=== PATIENT | male | born 1940 | race Caucasian/White ===

== ENCOUNTER 2016-11-09 12:51 | Inpatient (IN) | payer MEDICARE, OTHER ==
[2016-11-09] VITALS (8 sets, daily range): BP systolic 100–152; BP diastolic 43–88; PULSE 60–76; RESP 16–28; O2SAT 94–97
[~2016-11-09] VITALS: Ht 180.3 cm; Wt 132.5 kg
--- NOTE | 2016-11-09 12:51 | ED.REPORT ---
HPI-Stroke / CVA Nov 09, 2016 ED Provider: Suleman Pedroza MD Patient is a 76 year old male with a history of CAD and DM who presents to the ED via EMS complaining of L sided paralysis upon waking this morning. His last known normal is last night before bed. He fell this morning when he got up to go to the bathroom and hit his head on his night stand. He was found down on his left side by EMS for an unknown amount of time. EMS noted him to have decreased functioning of his L side and reports he was fluctuating in and out of Afib. He denies any other symptoms. He does not have a hx of stroke. Pt takes ASA daily but is not on any other blood thinners. Nursing Notes Stated Complaint: POSSIBLE STROKE Nursing Notes Reviewed: Yes Allergies: Coded Allergies: No Known Allergies (Unverified , 11/09/16) Scheduled Ascorbic Acid (Vitamin C) 250 Mg Tab.chew 250 MG PO QAM (Reported) Aspirin (Aspirin) 81 Mg Tablet 81 MG PO QAM (Reported) Calcium Carbonate (Calcium Carbonate) 600 Mg Tablet 600 MG PO QAM (Reported) Cholecalciferol (Vitamin D3) (Vitamin D3) 2,000 Unit Tablet 2,000 UNIT PO QAM ( Reported) Hydrochlorothiazide (Hydrochlorothiazide) 25 Mg Tablet 25 MG PO QAM (Reported) Insulin Glargine (Lantus U100 Insulin Vial) 100 Unit/Ml Vial 45 UNIT SUBQ HS ( Reported) Lisinopril (Lisinopril) 40 Mg Tablet 40 MG PO QAM (Reported) Metformin (Glucophage) 1,000 Mg Tablet 1,000 MG PO BIDWM (Reported) Metoprolol Tartrate (Metoprolol Tartrate) 100 Mg Tablet 100 MG PO BID (Reported ) Rosuvastatin Calcium (Rosuvastatin Calcium) 20 Mg Tablet 20 MG PO HS (Reported) Tadalafil (Cialis) 5 Mg Tablet 5 MG PO QAM (Reported) As directed by physician. Tamsulosin (Flomax) 0.4 Mg Capsule 0.4 MG PO HS (Reported) Triamcinolone Acetonide (Nasacort) 10.8 Ml Arnold 2 SPRAYS NS QAM (Reported) Vit A,C & E/Lutein/Minerals (Ocuvite with Lutein Tablet) 1 Each Tablet 1 EACH PO QAM (Reported) Scheduled PRN Hydrocodone-Acetaminophen 5-325 mg (Hydrocodone-Acetaminophen 5-325 mg) 1 Each Tablet 1 TABLET PO Q6H PRN PRN For Pain (Reported) Trazodone (Trazodone) 100 Mg Tablet 100 MG PO HS PRN PRN Insomnia (Reported) General Time Seen by Provider: 13:01 Chief Complaint Weakness Left-sided Hx Obtained From: Patient Arrived By: Ambulance Time last known well 11/08/16 Sudden in Onset?: Yes Context of Onset: During sleep Symptom Duration: Since onset Progression Since Onset: Unchanged Severity: Current: No pain currently Severity: Maximum: No pain Pertinent Negative: Pt denies other symptoms Context: Immunizations Unknown Risk Factors )( TPA Administration/Criteria Stroke Thrombolytic Therapy : TPA Considered: Yes Neurologist Contacted: Yes TPA Administered Intravenously: No, exclusion criteria (Outside time window ) )( CVA Risk Stratification Age >60 Risk factors reviewed Past Medical History Past Medical History CAD DM Past Surgical History Bypass 2004 Reports: Cataract surgery Social History Other Social History: Unable to Obtain History Past medical history, Past surgical history, Family history, Smoking history, Social history, Occupation, Ambulatory status Review of Systems Constitutional: Denies: Fever Respiratory: Denies: Shortness of breath Cardiovascular: Denies: Chest pain Neurologic: Reports: Focal weakness ( L sided ), Denies: Headache, Lightheaded, Slurred speech Complete sys rev & neg: except as marked. Physical Exam Initial Vital Signs Vital Signs (First) Date Time Temp Pulse Resp B/P Pulse Ox O2 Delivery O2 Flow Rate FiO2 11/09/16 13:22 36.2 76 16 133/69 97 Nasal Cannula 4 Initial VS: Reviewed, Vital signs normal General/Constitutional: Awake, Alert Answering questions appropriately Head / Eyes: Atraumatic No sings trauma to scalp or face L sided facial droop presents Neck: Atraumatic, Full range of motion, No midline vertebral tend No midline cervical tenderness Respiratory / Chest: Breath sounds NL, Breath sounds = bilat, No respiratory distress Ecchymosis to the L anterior chest wall. Anterior chest wall has well healed sternotomy scar. Cardiovascular: Heart rate NL, Regular rhythm, Heart sounds NL Neurologic: Oriented X3, Speech NL No strength to the L arm, unable to lift from side Freely and spontaneously moves R arm Lifts R leg off bed Unable to life L leg against gravity Sensation intact to bilateral upper and lower extremities Abdomen: Atraumatic, Soft, Non-tender Lower Extremity / Pelvis / MS: No deformity Superficial abrasion to the L knee Back: Atraumatic, No midline vertebral tend No thoracic or lumbar tenderness no bony deformity or step off Interpretation & Diagnostics Lab Results Interpretation Result Diagram: 11/09/16 1346 11/09/16 1346 Test 11/09/16 13:46 White Blood Count 13.7th/mm3 (3.8-10.1) Red Blood Count 5.25mil/mm3 (4.40-5.80) Hemoglobin 15.6g/dL (13.8-17.2) Hematocrit 45.6% (41.0-50.0) Mean Corpuscular Volume 86.9fL (81-100) Mean Corpuscular Hemoglobin 29.7pg (27.0-35.0) Mean Corpuscular Hemoglobin Concent 34.2% (32.0-37.0) Red Cell Distribution Width 13.2% (12.3-15.4) Platelet Count 187bil/L (150-400) Neutrophils (%) (Auto) 85.9% (40-74) Lymphocytes (%) (Auto) 5.5% (14-46) Monocytes (%) (Auto) 8.3% (4-12) Eosinophils (%) (Auto) 0.1% (0-5) Basophils (%) (Auto) 0.1% (0-3) Prothrombin Time 11.1sec (8.1-12.5) Prothromb Time International Ratio 1.04ratio Activated Partial Thromboplast Time 24.7sec (22.8-33.0) Sodium Level 140mEq/L (134-144) Potassium Level 4.1mEq/L (3.5-5.2) Chloride Level 97mEq/L (97-108) Carbon Dioxide Level 27mmol/L (18-29) Blood Urea Nitrogen 27mg/dL (8-27) Creatinine 1.03mg/dL (0.76-1.27) Estimat Glomerular Filtration Rate 75mL/min (>59) Glucose Level 136mg/dL (60-99) Calcium Level 9.4mg/dL (8.5-10.1) Total Bilirubin 0.5mg/dL (0.0-1.2) Aspartate Amino Transf (AST/SGOT) 27U/L (0-50) Alanine Aminotransferase (ALT/SGPT) 18U/L (0-44) Alkaline Phosphatase 39U/L (25-160) Total Creatine Kinase 648U/L (21-232) Troponin T < 0.010ug/L (0.0-0.011) Total Protein 6.8g/dL (6.4-8.4) Albumin 4.4g/dL (3.4-5.0) Triglycerides Level 76mg/dL (0-149) Cholesterol Level 126mg/dL (100-199) LDL Cholesterol, Calculated 62.800mg/dL (0-99) VLDL Cholesterol 15.200mg/dL HDL Cholesterol 48mg/dL (>39) Cholesterol/HDL Ratio 2.63 (0.0-4.4) Hold Manjarrez Top Tube Received (Received) ECG Interpretation ECG Interpretation: sinus rate 70 non specific intraventricular conduction delay poor baseline quality multiple PVC's no obvious ST elevation no prior for comparison Time: 12:55 Interpreted by: ED physician X-Ray Chest Interpretation Chest Xray Interpretation: IMPRESSION: 1. Focal opacity in the periphery of the left midlung suspicious for pulmonary contusion. 2. Left seventh and eighth rib fractures. Dictated by: Cindi Red MD, PhD on 11/09/2016 at 13:28 Approved by: Cindi Red MD, PhD on 11/09/2016 at 13:30 View: Portable, 1 view Interpretation / Wet Read by: Interpret - Radiologist CT Head Interpretation CT ANGIO HEAD AND NECK: IMPRESSION: 1. Subtle loss of morrow-white matter change involving the right basal ganglia suspicious for acute infarct. 2. No intracranial hemorrhage. 3. Thrombus involving the distal M1 and proximal M2 segments of the right posterior blurry. 4. 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 5. High-grade, proximally 70-80% stenosis of the origin the left internal carotid artery. 6. Moderate stenosis of the origins of the vertebral arteries. 7. Image quality severely degraded by patient motion artifact. 8. Findings telephoned to Dr. Suleman Pedroza on 11/09/2016 at 1557 hrs. Dictated by: Cindi Red MD, PhD on 11/09/2016 at 15:50 Approved by: Cindi Red MD, PhD on 11/09/2016 at 15:59 Interpretation / Wet Read by: Interpret - Radiologist Re-Eval/Medical Decision Med Decision/Clinical Course Patient is a 76 year old male with a history of CAD and DM who presents to the ED via EMS complaining of L sided paralysis upon waking this morning. His last known normal is last night before bed. He fell this morning when he got up to go to the bathroom and hit his head on his night stand. He was found down on his left side by EMS for an unknown amount of time. EMS noted him to have decreased functioning of his L side and reports he was fluctuating in and out of Afib. He denies any other symptoms. Upon arrival in the emergency department the patient is alert/awake and hemodynamically stable. The patient has complete paralysis of the left upper and lower limbs. His presentation is overwhelmingly consistent with severe stroke. He was last known normal when he went to bed last night and is not a candidate for TPA because of this. EKG: sinus rate 70 non specific intraventricular conduction delay poor baseline quality multiple PVC's no obvious ST elevation no prior for comparison Laboratory studies notable as below: Leukocytosis 13.9 CBC otherwise unremarkable cmp unremark trop neg CK 648 coag studies nL Chest x-ray: 1. Focal opacity in the periphery of the left midlung suspicious for pulmonary contusion. 2. Left seventh and eighth rib fractures. CT/CTA head and neck obtained as below: 1. Subtle loss of morrow-white matter change involving the right basal ganglia suspicious for acute infarct. 2. No intracranial hemorrhage. 3. Thrombus involving the distal M1 and proximal M2 segments of the right posterior blurry. 4. 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 5. High-grade, proximally 70-80% stenosis of the origin the left internal carotid artery. 6. Moderate stenosis of the origins of the vertebral arteries. 7. Image quality severely degraded by patient motion artifact. Patient presentation and about imaging findings discussed with stroke neurology team at [facility]. I specifically contacted them to discuss whether this patient was a candidate for clot retrieval. Given that his last known normal was last night they do not feel that transfer for potential clot retrieval would be of benefit. He is clearly not TPA candidate. At this time the patient remains with ongoing severe neurologic deficits though he has demonstrated no evolving neurologic process. He is additionally noted to have above-mentioned rib fractures and pulmonary contusion there was not any respiratory distress. He was treated with hydromorphone for pain. Swallow screen was performed and the patient failed swallow screen. Patient was discussed with admitting hospitalist accepted for further management. Re-Evaluation/Progress : Time of Eval: 13:30 )( Re-Eval Neurologic Exam: Alert Re-Evaluation/Progress Note: Discussed plan for admission. Patient understands and agrees with plan. All questions addressed at this time. Consultation #1: Call Returned at: 15:33 Note: Discussed pt's case with the stroke team at [facility]. Suggest admitting pt at [facility], as they would not likely do a clot retrieval. Consultation #2: Referral / Consult Name: Sergei Davidson MD Consulted With: Hospitalist Call Returned at: 16:45 Actuarial Intern: Will see patient, Agrees with eval, Agrees with plan, Accepts admit Note: Discussed pt's case. Accepts admit. Counseled Regarding: Diagnosis, Lab results, Need for admission Patient Discharge & Departure Impression: Primary Impression: Cerebrovascular accident CVA mechanism: unspecified Qualified Code: I63.9 - Cerebral infarction, unspecified Additional Impressions: Paralysis of left upper extremity Paralysis of left lower extremity Acute ischemic right MCA stroke Left rib fracture Encounter type: initial encounter Rib fracture type: multiple ribs Fracture type: closed Qualified Code: S22.42XA - Multiple fractures of ribs, left side, initial encounter for closed fracture Left pulmonary contusion Fall from ground level Elevated CK Disposition: ADMITTED TO HOSPITAL Discharge Condition All VS Reviewed: Yes Condition: Stable Referrals: Jesica Kirk PA-C (PCP) Crit Care Except Billable Proc Time Spent: 135-164 minutes Services Performed: Patient management by me, Time spent at bedside, Reviewing test results, Reviewing imaging, Discussing patient care, Documentation in record, Time with fam/surrogate Critical Care Notes: Management of acute ischemic stroke with left-sided paralysis, discussions with stroke team at [facility], consideration of TPA, consideration of clot retrieval, management of acute traumatic injuries, discussions with patient/family, documentation Scribe Attestation Portions of this note were transcribed by Ping Clemente. I, Dr. Pedroza personally performed the history, physical exam and medical decision-making; I reviewed and confirmed the accuracy of the information in the transcribed note. Signed by: Lincoln Dailey, 11/09/16 copies to: Jesica Kirk PA-C, Beck O MD Nov 09, 2016 12:51 PING CLEMENTE Nov 09, 2016 13:01
--- NOTE | 2016-11-09 13:32 | DRSVH ---
PROCEDURE: X-RAY CHEST ONE VIEW, PORTABLE ([id number]) INDICATIONS: stroke protocol, Left chest trauma TECHNIQUE: One view of the chest was acquired. COMPARISON: None. FINDINGS: Surgical changes and devices: Median sternotomy wires. Lungs and pleura: No pleural effusions or pneumothorax. Focal opacity noted in the periphery of the left midlung suspicious pulmonary contusion given history of trauma. Mediastinum: Mediastinal contours appear normal. Heart size is normal. Bones and chest wall: No suspicious bony lesions. Overlying soft tissues appear unremarkable. Left seventh and eighth rib fractures noted. IMPRESSION: 1. Focal opacity in the periphery of the left midlung suspicious for pulmonary contusion. 2. Left seventh and eighth rib fractures. Dictated by: Cindi Red MD, PhD on 11/09/2016 at 13:28 Approved by: Cindi Red MD, PhD on 11/09/2016 at 13:30
[2016-11-09 13:50] LABS: BASOPHILS % (AUTO) 0.1 % (0-3); EOSINOPHILS % (AUTO) 0.1 % (0-5); MONOCYTES % (AUTO) 8.3 % (4-12); Mean Corpuscular Hemoglobin 29.7 pg (27.0-35.0); Mean Corpuscular Volume 86.9 fL (81-100); NEUTROPHILS % (AUTO) 85.9 % (40-74); Platelet Count 187 bil/L (150-400)
[2016-11-09 14:29] LABS: TROPONIN T < 0.010 ug/L (0.0-0.011)
[2016-11-09 14:32] LABS: Creatine Kinase 648 U/L (21-232)
[2016-11-09 14:40] LABS: INR 1.04 ratio
--- NOTE | 2016-11-09 16:01 | DRSVH ---
PROCEDURE: CT ANGIO HEAD AND NECK (P) INDICATIONS: STAT READ - CALL ED PROVIDER W/RESULTS TECHNIQUE: Pre-contrast 4.5 mm thick sections acquired from the foramen magnum to the vertex. After the adminis tration of intravenous contrast, 1 mm thick sections acquired from the aortic arch through the [place] of [place]. Post-contrast 4.5 mm thick sections then re-acquired from the foramen magnum to the vert ex. 3-dimensional zkwsvqt-wshyorhkv-cnpzhomaen (MIP) and/or volume rendering reformats were acquired of the central intracranial vasculature and neck separately. For radiation dose reduction, the foll owing was used: automated exposure control, adjustment of mA and/or kV according to patient size. COMPARISON: None. FINDINGS: Image quality: Image quality severely degraded by patient motion. BRAIN: CSF spaces: Ventricles are normal in size and shape. Basal cisterns are patent. No extra-axial flu id collections. Brain: No midline shift. No intracranial bleeds or masses. Subtle hypodensity noted in the right de ep morrow matter suspicious for acute infarct. Skull and face: Calvarium and facial bones appear intact, without suspicious lesions. Orbits appear normal. Sinuses: Mucous retention cyst versus polyp is noted in the left maxillary sinus. The mastoids are clear. HEAD CT ANGIOGRAPHY: Anterior circulation: Intracranial internal carotid arteries are normal in size and flow. The flow within the paired anterior cerebral arteries is normal and symmetric. There is absence of flow in the distal M1 segment and the proximal M2 segments of the right middle cerebral artery compatible presen ce of thrombus. The anterior communicating artery is seen. No aneurysms are seen. Posterior circulation: Visualized portions of the vertebral arteries demonstrate normal caliber, and join to form a normal appearing basilar artery. Flow within the posterior cerebral arteries is norm al and symmetric. No aneurysms are seen. NECK CT ANGIOGRAPHY: Carotid system: The great vessels demonstrate a conventional anatomy as they arise from the aortic a rch. The origins of the common carotid arteries appear patent. The common carotid arteries demonstr ate normal caliber and courses. Atherosclerotic plaque noted in the origin of the right internal car otid artery which causes high grade,, greater than 90% to near-complete occlusion of the vessel. Ath erosclerotic plaque is noted in the origin of the left internal carotid artery which causes high grad e, approximately 7880% stenosis of the vessel. Posterior circulation: Atherosclerotic plaque noted in the origins of the vertebral arteries bilater ally which causes moderate stenosis. The more superior extracranial portions of both vertebral arter ies also demonstrate normal courses and calibers. They join to form a normal appearing basilar arter y. Soft tissues: Visualized neck soft tissues demonstrate no suspicious abnormalities. Bones: No suspicious bony lesions. Visualized cervical spine appears normally aligned. IMPRESSION: 1. Subtle loss of morrow-white matter change involving the right basal ganglia suspicious for acute in farct. 2. No intracranial hemorrhage. 3. Thrombus involving the distal M1 and proximal M2 segments of the right posterior blurry. 4. 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 5. High-grade, proximally 70-80% stenosis of the origin the left internal carotid artery. 6. Moderate stenosis of the origins of the vertebral arteries. 7. Image quality severely degraded by patient motion artifact. 8. Findings telephoned to Dr. Suleman Pedroza on 11/09/2016 at 1557 hrs. Dictated by: Cindi Red MD, PhD on 11/09/2016 at 15:50 Approved by: Cindi Red MD, PhD on 11/09/2016 at 15:59
[2016-11-09] MEDS ORDERED: HYDROmorphone 0.5 mg/0.5 mL iSecure Syringe IVPUSH ONE (16:10)
--- NOTE | 2016-11-09 17:27 | PCM.HPMED ---
Subjective Date of Service Nov 09, 2016 Primary Provider: Admitting Physician: Sergei Davidson MD Primary Care Physician: Jesica Kirk PA-C Attending Physician: Sergei Davidson MD Admit Status: From the Emergency Department, Admit to Green Team Chief Complaint: Left sided weakness History of Present Illness: Patient is a 76 year old male with a history of CAD and DM who presents to the ED via EMS complaining of L sided paralysis upon waking this morning. Patient said that he felt fine when he went to bed. Woke up this morning and fell out of bed. Says that his left side was paralyzed upon waking. Patient has no prior history of stroke was taking aspirin but no other active regulation. Patient denies known history of atrial fibrillation. Per emergency department note he was found down on his left side by EMS for an unknown amount of time. EMS noted him to have decreased functioning of his L side and reports he was fluctuating in and out of Afib. He denies any other symptoms. Review of Systems: 12 point review of symptoms negative except for history of present illness Allergies Coded Allergies: No Known Allergies (Unverified , 11/09/16) Home Medications See med list PMH CAD DM Surgical History Bypass 2004 Reports: Cataract surgery Family History Noncontributory Exam Vital Signs Vital Sign - Last Date Time Temp Pulse Resp B/P Pulse Ox O2 Delivery O2 Flow Rate FiO2 11/09/16 16:43 64 23 123/54 97 Room Air 4 11/09/16 13:22 36.2 Exam Gen: NAD, AOx, L sided facial droop HEENT: NCAT, PERRLA, EOMI, MMM, sclera anicteric. Neck: Soft, supple, no thyromegaly/JVD/LAD. Resp: CTAB, no R/R/W. l CV: S1 S2, RRR, No M/R/G Abd: Soft, (+) BS, NT/ND, no guarding/rebound/organomegaly. Ext: +PP, No edema. Skin: Superficial abrasion to the L knee. Ecchymosis to the L anterior chest wal Neuro/Psych: Cooperative, appr mood/affect. L sided facial droop. LUE- 1/5 strength. LLE- 1/5. Sensation intact to bilateral upper and lower extremities Lab and Diagnostics Result Diagram: 11/09/16 1346 11/09/16 1346 X-Rays, CTs and MRIs Chest Xray Interpretation: IMPRESSION: 1. Focal opacity in the periphery of the left midlung suspicious for pulmonary contusion. 2. Left seventh and eighth rib fractures. Dictated by: Cindi Red MD, PhD on 11/09/2016 at 13:28 Approved by: Cindi Red MD, PhD on 11/09/2016 at 13:30 View: Portable, 1 view Interpretation / Wet Read by: Interpret - Radiologist CT ANGIO HEAD AND NECK: IMPRESSION: 1. Subtle loss of morrow-white matter change involving the right basal ganglia suspicious for acute infarct. 2. No intracranial hemorrhage. 3. Absence of flow in the distal M1 segment and the proximal M2 segments of the right middle cerebral artery compatible presence of thrombus. 4. 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 5. High-grade, proximally 70-80% stenosis of the origin the left internal carotid artery. 6. Moderate stenosis of the origins of the vertebral arteries. 7. Image quality severely degraded by patient motion artifact. 8. Findings telephoned to Dr. Suleman Pedroza on 11/09/2016 at 1557 hrs. 12-lead ECG ECG Interpretation: sinus rate 70 non specific intraventricular conduction delay poor baseline quality multiple PVC's no obvious ST elevation no prior for comparison Time: 12:55 Interpreted by: ED physician Assessment & Plan Patient is a 76 year old male with a history of CAD and DM who presents to the ED via EMS complaining of L sided paralysis upon waking this morning with CTA- finding of Acute infarct Right Basal Ganglia right middle cerebral artery compatible presence of thrombus. Acute infarct Right Basal Ganglia, acute, active- p/w Left sided weakness. Per CTA- Acute infarct Right Basal Ganglia right middle cerebral artery compatible presence of thrombus. Outside of tPA window. ED cld [place] Neuro so said not candidate for clot retrieval. MRI Brain ordered. Allow permissive HTN Check Echo, check Hba1c, Lipid Panel. Cardiac Monitoring for possible A-Fib. Discussed case with Neuro- Dr. Chand. Med management w/ dual anti-platelet therapy- ASA/Plavix for 90 days. High dose Atorvastatin. She will see patient Ground Level Fall, acute, active. sustained Left seventh and eighth rib fractures per CXR. Left Pulmonary Contusion. Pain can give morphine. CAD-chronic c/w ASA. Hm Metoprolol tart 100mg BID. For cardioprotective effect will continue at lower dose of 25mg BID. If HR is elevated >120 can give Metoprolol 5mg prn. Want to allow for permissive HTN. DM-chronic -SSI, fingersticks. - Failed swallow, hm Lantus 40u, will give 1/2 dose until resumes diet. -Hold Metformin. - Check Hba1c Acetaminophen for mild pain when necessary. Bowel regimen Senna and MiraLAX scheduled and PRN. Zofran when necessary for nausea and vomiting. Code-Full Status- Patient is admitted under inpatient status expected length of stay greater than 2 midnights due to severity of presenting symptoms, risk of adverse events, and complexity of treatment plan. Pain Evaluation: Pain not Controlled VTE Prophylaxis: Sub-Q Heparin (Unfractionated) VTE Mechanical Devices: Intermittant Pneumatic CD Resuscitation Status: CPR: Attempt Resuscitation Sergei Davidson MD Nov 09, 2016 17:27
[2016-11-09] MEDS ORDERED: Ondansetron 2 mg/mL 2 mL Inj IVPUSH PRN ×2 (17:35→17:40)
[2016-11-09] MEDS ORDERED: Alum-Mag Hydrox-Simeth 30 mL Suspension PO PRN ×2 (17:35→17:40)
[2016-11-09] MEDS ORDERED: Polyethylene Glycol (PEG) 17 Gm Powder PO PRN (17:40)
[2016-11-09] MEDS ORDERED: Labetalol 5 mg/mL 20 mL Inj IVPUSH PRN (17:40)
[2016-11-09] MEDS ORDERED: HYDR-4003 PO (18:08)
[2016-11-09] MEDS ORDERED: ASPI-973 PO (18:08)
[2016-11-09] MEDS ORDERED: HYDR25TA4 PO (18:08)
[2016-11-09] MEDS ORDERED: TRIA10.8 NS (18:08)
[2016-11-09] MEDS ORDERED: METO100T3 PO (18:08)
[2016-11-09] MEDS ORDERED: CALC600T87 PO (18:08)
[2016-11-09] MEDS ORDERED: ROSU20TA27 PO (18:08)
[2016-11-09] MEDS ORDERED: TRAZ-118 PO (18:08)
[2016-11-09] MEDS ORDERED: VIT1TABL25 PO (18:08)
[2016-11-09] MEDS ORDERED: INSU100V7 SUBQ (18:08)
[2016-11-09] MEDS ORDERED: LISI40TA PO (18:08)
[2016-11-09] MEDS ORDERED: ASCO250T7 PO (18:08)
[2016-11-09] MEDS ORDERED: TAMS0.4C98 PO (18:08)
[2016-11-09] MEDS ORDERED: METF1000 PO (18:08)
[2016-11-09] MEDS ORDERED: CHOL200025 PO (18:08)
[2016-11-09] MEDS ORDERED: TADA5TAB2 PO (18:08)
[2016-11-09] MEDS ORDERED: Glucose 40% Oral Gel 15 Gm Tube PO PRN (18:15)
[2016-11-09] MEDS: Insulin LISPRO 300 Unit/3 mL Inj SUBQ SCH ×2 (18:24→22:00)
[2016-11-09] MEDS ORDERED: Dextrose 10% 250 ML IV PRN (18:25)
[2016-11-09] MEDS: 0.9% Sodium Chloride 1,000 ML IV SCH (18:35)
[2016-11-09] MEDS ORDERED: MeTOProlol 1 mg/mL 5 mL Inj IVPUSH PRN (18:35)
--- NOTE | 2016-11-09 19:25 | NUR ---
Arrival Arrival to room 3020 from ER via gurney approx 1800. O2 in place and NS infusing. Provider notified and assessed. Pharmacy updated medrec off pt list. Anti-thrombolytics admin. Brief applied. Pt oriented to room and call light. Left side flacid. 's in-home therapy teacher Shanna designated as primary contact and given an update, other family members numbers added to whiteboard along with plan of care.
--- NOTE | 2016-11-09 19:45 | NUR ---
Admission Admission assessment and screening completed.
[2016-11-09] MEDS: Insulin GLARgine 100 Unit/mL Syringe SUBQ SCH (21:00)
[2016-11-10] VITALS (8 sets, daily range): BP systolic 126–142; BP diastolic 57–79; PULSE 64–82; RESP 17–22; O2SAT 90–97
[2016-11-10] MEDS: Heparin 5,000 Unit/mL Inj SUBQ SCH ×3 (00:15→17:38)
[2016-11-10] MEDS: HYDROmorphone 1 mg/mL Inj IVPUSH PRN ×4 (00:15→19:48)
[2016-11-10] MEDS: 0.9% Sodium Chloride 1,000 ML IV SCH ×2 (04:35→16:09)
--- NOTE | 2016-11-10 05:06 | NUR ---
Neuro assessment Patient's neuro assessment has remained unchanged this shift. Left arm and leg flaccid. Left facial droop, garbled speech. Patient is alert and oriented, just difficult to understand. Patient on P500 bed, being turned Q2 hours. Cooperative with care, attempts to assist with turning. Bed alarm on for safety, intentional rounding in place.
[2016-11-10 06:34] LABS: BASOPHILS % (AUTO) 0.3 % (0-3); EOSINOPHILS % (AUTO) 1.7 % (0-5); MONOCYTES % (AUTO) 12.5 % (4-12); Mean Corpuscular Hemoglobin 29.9 pg (27.0-35.0); Mean Corpuscular Volume 87.2 fL (81-100); NEUTROPHILS % (AUTO) 67.3 % (40-74); Platelet Count 181 bil/L (150-400)
[2016-11-10] MEDS: Insulin LISPRO 300 Unit/3 mL Inj SUBQ SCH ×4 (08:00→20:43)
[2016-11-10] MEDS ORDERED: Dexamethasone Inj 10 MG in 0.9% Sodium Chloride-Pha MIX 50 ML IV STA (10:58)
--- NOTE | 2016-11-10 10:58 | DRSVH ---
PROCEDURE: MRI BRAIN WITH AND WITHOUT CONTRAST ([id number]) INDICATIONS: R Basal Ganglia CVA on CT. Left sides paralysis. The distal right M1/proximal right M2 segment middle cerebral artery thrombus identified by CT angiogram yesterday. TECHNIQUE: Noncontrast axial T1 spin echo, axial T2 fast spin echo, sagittal and axial FLAIR, coronal T2 fast sp in echo, axial gradient echo, axial diffusion and ADC through the brain. After the administration of contrast, axial and coronal 3D VIBE or T1 spin echo with fat saturation through the brain. COMPARISON: None. FINDINGS: Image quality: Excellent. CSF Spaces: Basal cisterns are patent. No extra-axial fluid collections. Ventricles are mildly dis torted in size and shape with a mild degree of compressive influence by the acute stroke involving th e right middle cerebral artery vascular distribution effacing the right lateral ventricle and overlyi ng cortical sulci to a mild degree. Brain: Scant [id number] midline shift. No intracranial bleeds or masses. No abnormal intracrani al enhancement. The brainstem appears normal. Diffusion-weighted images demonstrate definite acute ischemic insults involving the right middle cerebral artery vascular distribution and extending into the basal ganglia on the right, with largest measurements of the area of subacute stroke currently me asuring up to 7.2 cm AP and 3.8 cm transverse with a craniocaudad extent of approximately 3.9 cm. Terry btle flow abnormalities are present on T2 and postcontrast T1 imaging in the area of thrombus present at the junction of the M1 and M2 segments right middle cerebral artery. Several additional punctate foci of infarction are present involving the anterior tip of the right temporal lobe and also the te mporal occipital junction on the right. No chronic ischemic insults. Normal intravascular flow void s are present. Skull and face: Calvarial marrow is normal in signal. Orbits appear normal. Sinuses: Sinuses and mastoids appear clear. IMPRESSION: Moderately large right middle cerebral artery vascular distribution with early mild to m oderate mass effect, causing only slight afdro-vx-fuxy deviation of the midline structures, without a ssociated hemorrhage. As discussed above and previously during CT angiographic report there is a thr ombus that currently is likely partially obstructing the junction of the right middle cerebral artery M1-M2 junction. A portion of this thrombus is involving the lenticulostriate origins on the right is the presumed exp lanation for the basal ganglia contiguous infarction in that area and embolic etiology is the likely cause given the presence of several additional punctate foci of subacute ischemic injury involving th e anterior and posterior margins of the right temporal lobe. Findings immediately called to the hospitalist caring for the patient. Dictated by: Logan Navarro M.D. on 11/10/2016 at 10:34 Approved by: Logan Navarro M.D. on 11/10/2016 at 10:56
--- NOTE | 2016-11-10 11:41 | PCM.PNMED ---
Subjective Date of Service Nov 10, 2016 Subjective Pt had some difficulty with PO meds. No new R sided deficits noted overnight. Exam Vital Signs Vital Sign - Last Date Time Temp Pulse Resp B/P Pulse Ox O2 Delivery O2 Flow Rate FiO2 11/10/16 10:34 70 11/10/16 05:24 37.0 20 126/74 96 OxyMask 2.00 Intake and Output 11/09/16 11/09/16 11/10/16 Cumulative From/Thru 15:00 23:00 07:00 11/09/16 12:55 - 11/10/16 06:29 Intake Total 500 ml 996 ml 1496 ml Output Total 841 ml 841 ml Balance 500 ml 155 ml 655 ml Intake Oral 0 ml 0 ml IV Total 500 ml 996 ml 1496 ml Output Urine Total 841 ml 841 ml # Voids 1 1 # Bowel Movements 0 0 Exam Gen: NAD, AOx, L sided facial droop. Slurred speech. HEENT: NCAT, PERRLA, EOMI, MMM, sclera anicteric. Neck: Soft, supple, no thyromegaly/JVD/LAD. Resp: CTAB, no R/R/W. CV: S1 S2, RRR, No M/R/G Abd: Soft, (+) BS, NT/ND, no guarding/rebound/organomegaly. Ext: +PP, No edema. Skin: Superficial abrasion to the L knee. Neuro/Psych: Cooperative, appr mood/affect. L sided facial droop. LUE- 0/5 strength. LLE- 0/5. Sensation intact to bilateral upper and lower extremities. No R sided deficits. IVs and Medications Medications Reviewed: Medications were reviewed in detail Lab and Diagnostics Result Diagram: 11/10/16 0615 11/10/16 0750 X-Rays, CTs and MRIs 11/09/16 MRI BRAIN WITH AND WITHOUT CONTRAST Brain: Scant iyubw-re-lokl midline shift. No intracranial bleeds or masses. No abnormal intracranial enhancement. The brainstem appears normal. Diffusion- weighted images demonstrate definite acute ischemic insults involving the right middle cerebral artery vascular distribution and extending into the basal ganglia on the right, with largest measurements of the area of subacute stroke currently measuring up to 7.2 cm AP and 3.8 cm transverse with a craniocaudad extent of approximately 3.9 cm. Subtle flow abnormalities are present on T2 and postcontrast T1 imaging in the area of thrombus present at the junction of the M1 and M2 segments right middle cerebral artery. Several additional punctate foci of infarction are present involving the anterior tip of the right temporal lobe and also the temporal occipital junction on the right. No chronic ischemic insults. Normal intravascular flow voids are present. IMPRESSION: Moderately large right middle cerebral artery vascular distribution with early mild to moderate mass effect, causing only slight right- to-left deviation of the midline structures, without associated hemorrhage. As discussed above and previously during CT angiographic report there is a thrombus that currently is likely partially obstructing the junction of the right middle cerebral artery M1-M2 junction. A portion of this thrombus is involving the lenticulostriate origins on the right is the presumed explanation for the basal ganglia contiguous infarction in that area and embolic etiology is the likely cause given the presence of several additional punctate foci of subacute ischemic injury involving the anterior and posterior margins of the right temporal lobe 11/09- MRI Brain- Chest Xray Interpretation: IMPRESSION: 1. Focal opacity in the periphery of the left midlung suspicious for pulmonary contusion. 2. Left seventh and eighth rib fractures. Dictated by: Cindi Red MD, PhD on 11/09/2016 at 13:28 Approved by: Cindi Red MD, PhD on 11/09/2016 at 13:30 View: Portable, 1 view Interpretation / Wet Read by: Interpret - Radiologist CT ANGIO HEAD AND NECK: IMPRESSION: 1. Subtle loss of morrow-white matter change involving the right basal ganglia suspicious for acute infarct. 2. No intracranial hemorrhage. 3. Absence of flow in the distal M1 segment and the proximal M2 segments of the right middle cerebral artery compatible presence of thrombus. 4. 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 5. High-grade, proximally 70-80% stenosis of the origin the left internal carotid artery. 6. Moderate stenosis of the origins of the vertebral arteries. 7. Image quality severely degraded by patient motion artifact. 8. Findings telephoned to Dr. Suleman Pedroza on 11/09/2016 at 1557 hrs. 12-lead ECG ECG Interpretation: sinus rate 70 non specific intraventricular conduction delay poor baseline quality multiple PVC's no obvious ST elevation no prior for comparison Time: 12:55 Interpreted by: ED physician Assessment & Plan Patient is a 76 year old male with a history of CAD and DM who presents to the ED via EMS complaining of L sided paralysis upon waking this morning with CTA- finding of Acute infarct Right Basal Ganglia right middle cerebral artery compatible presence of thrombus. Moderately Large Right MCA Ischemic Infarct involving Basal Ganglia, acute, active- p/w Left sided hemiparesis. MRI Brain- shows early mild to moderate mass effect. Per MRI/CTA- Thrombus that likely partially obstructing the junction of the right MCA at M1-M2 junction. Presented outside of tPA window. ED called [facility], not a candidate for clot retrieval. Etiology likely Atrial Fibrillation. Allow permissive HTN, cardiac monitoring. Stroke Pathway. Echo ordered. - Hba1c- pending, Lipid Panel- uremarkable. - Cardiac Monitoring for possible A-Fib. - Discussed case with Neuro- Dr. Chand. Her initial Recs- med management w/ dual anti-platelet therapy. ASA/Plavix for 90 days. High dose Atorvastatin. - Added [place] ASA prn if can't take PO Meds. Mild to Moderate mass effect due to R MCA Infarct- acute, active. Pt is Hemodynamically stable. Neuro exam unchanged since admit. - For reference; Baseline Neuro Exam as of 11/10- Alert and Oriented x 3. Moderate slurred speech. R Facial Droop, Left Hemiparesis. No R sided deficits at all. Sensation intact bilaterally. - frequent q4h Neuro checks, consider upgrade to ICU if more frequent neuro checks or change in mental status. - Discussed case with Neuro-Dr. Chand. No Decadron. Get Stat CT Head for any significant change in Neuro exam or if becomes hemodynamically unstable. If mass effect worsens would need urgent transfer to [facility] for possible craniotomy. - She will see patient 11/11/16. hx of Ground Level Fall, acute, active. Occurred 2 months ago per pt. sustained Left seventh and eighth rib fractures per CXR. Left Pulmonary Contusion. Pain can give morphine. CAD s/p CABG-chronic c/w ASA. Allow for permissive HTN, BP has been low off all HTN Meds. Will hold Metoprolol and resume at low dose once BP allows. DM-chronic -SSI, fingersticks. -Failed swallow, hm Lantus 40u, will give 1/2 dose until resumes diet. -Hold Metformin. - Check Hba1c Code-Full Status- Patient is admitted under inpatient status expected length of stay greater than 2 midnights due to severity of presenting symptoms, risk of adverse events, and complexity of treatment plan. Pain Evaluation: Adequate Pain Control GI Prophylaxis: Proton Pump Inhibitor VTE Prophylaxis: Sub-Q Heparin (Unfractionated) VTE Mechanical Devices: Intermittant Pneumatic CD Resuscitation Status: CPR: Attempt Resuscitation Sergei Davidson MD Nov 10, 2016 11:41
[2016-11-10] MEDS ORDERED: Acetaminophen 32.5 mg/mL 20 mL Liquid PO PRN (14:55)
--- NOTE | 2016-11-10 15:18 | NUR ---
Evaluation completed. Please go to "Notes" then click on "Assessments and Notes" (bottom left corner of screen). Then select appropriate discipline tab on top of screen.
--- NOTE | 2016-11-10 15:30 | DRSVH ---
[facility] [address] [place] [address] Echocardiogram Report Name: BLANCA JEFFERS VStudy Date: 11/10/2016 Height: 7 1 in Hospital Exam Location: [facility] Weight: 2 90 lb Gender: Male BSA: 2.5 m2 : 1940 Age: 76 yrs BP: 126/7 4 mmHg Reason For Study: CVA Ordering Physician: WARR[facility] Performed By: Ana Fowler Referring Physician: August Chandler Interpretation Summary This study quality was technically difficult with the patient being confused, unable to follow commands, and grabbing the scanning probe throughout exam. The left ventricle is not well visualized but grossly appears normal in size and left ventricular systolic function is probably normal with the ejection fraction grossly estimated to be 60-65% without obvious focal wall motion abnormalities but poor endocardial definition reduces the sensitivity for the detection of such. There is probable borderline concentric left ventricular hypertrophy. The right ventricle is not well visualized but grossly appears normal in size with probable normal systolic function. Pulmonary artery pressures cannot be estimated because of the lack of a measurable TR jet velocity but the IVC suggests a right atrial pressure of 8 mm Hg. The atria are not well visualized but grossly appear normal in size. The interatrial septum grossly appears intact with no evidence for an atrial septal defect and the injection of contrast shows no obvious interatrial shunt but poor image quality significantly reduces the sensitivity for the detection of such. Clinical correlation is recommended. There is no obvious significant valvular heart disease. Procedure: A two-dimensional transthoracic echocardiogram with color flow and Doppler was performed. The study quality was technically difficult. There is no prior echocardiogram noted for this patient. A saline contrast injection was performed to assess for cardiac shunting. A contrast injection of Definity was performed to improve assessment of LV function. The patient was in normal sinus rhythm during the exam. Left Ventricle: The left ventricle is not well visualized. The left ventricle is grossly normal size. There is borderline concentric left ventricular hypertrophy. Left ventricular systolic function is probably normal. The ejection fraction is estimated to be 60-65%. There are no obvious focal wall motion abnormalities noted but poor endocardial definition reduces the sensitivity for the detection of such. Assessment of diastolic parameters indicates a relaxation abnormality of the left ventricle, consistent with normal filling pressures. Right Ventricle: The right ventricle is not well visualized. The right ventricle grossly appears normal in size with probable normal systolic function. Atria: The left atrium is not well visualized. The left atrium grossly appears normal in size. Right atrium not well visualized. The right atrium grossly appears normal in size. The interatrial septum is intact with no evidence for an atrial septal defect. Injection of contrast documented no interatrial shunt. Mitral Valve: The mitral valve is not well visualized. The mitral valve is grossly normal. There is no mitral regurgitation noted. Aortic Valve: The aortic valve is trileaflet. The aortic valve is mildly calcified. The aortic valve opens well. No aortic regurgitation is present. Tricuspid Valve: The tricuspid valve is normal. There is a trace or physiologic amount of tricuspid regurgitation. Pulmonary artery pressures cannot be estimated because of the lack of a measurable TR jet velocity. Pulmonic Valve: There is trace pulmonic regurgitation. There is no significant valvular heart disease. Great Vessels: The aortic root is normal size. The ascending aorta is normal in size. The aortic arch could not be visualized. The pulmonary is not well visualized. The IVC is dilated (diameter is greater than 2.1 cm) yet it collapses greater than 50% with a sniff. This suggests a right atrial pressure of 8 mm Hg. Pericardium/ Pleura There is no pericardial effusion. There is no pleural effusion. MMode/2D Measurements & Calculations LVIDd: 5.2 cm LVIDs: 2.9 cm LA A2 area: 21.4 cm FS: 44.2 % LA A4 area: 17.5 cm EPSS: 0.62 cm LA length (vol): 5.0 cm IVSd: 1.2 cm LA vol: 64.3 ml LVPWd: 1.1 cm LA vol index: 26.0 ml/m IVC diam: 3.0 cm RA long axis: 4.7 cm LVOT diam: 2.0 cm RA area: 14.0 cm AoV Openin.7 cm RA vol: 35.4 ml Ao root diam: 3.0 cm RA : 14.3 ml/m2 asc Aorta Diam: 2.8 cm LV swain. diameter/BSA (cm/m^2): 2.1 LV sys. diameter/BSA (cm/m^2): 1.2 Doppler Measurements & Calculations Ao V2 max: 136.1 cm/sec MV E max claudy: 67.3 cm/sec Ao max P.4 mmHg MV A max claudy: 72.2 cm/sec Ao mean P.4 mmHg MV P1/2t: 51.7 msec LVOT Max Claudy: 82.1 cm/sec ALEXANDRA(I,D): 1.9 cm sev ratio: 0.58 MV E/A: 0.93 PA V2 max: 131.0 cm/sec Med Peak E' Claudy: 6.1 cm/sec PA mean P.9 mmHg E/E' med: 11.1 Lat Peak E' Claudy: 7.7 cm/sec E/E' lat: 8.8 E/e' average: 10.0 MV dec time: 0.18 sec MV P1/2t max claudy: 67.6 cm/sec MVA(P1/2t): 4.3 cm2 Ao V2 mean: 98.4 cm/sec LV V1 max P.7 mmHg Ao V2 VTI: 28.6 cm LV V1 VTI: 16.7 cm ALEXANDRA(V,D): 2.0 cm2 PA V2 mean: 91.4 cm/sec ALEXANDRA indexed to BSA (cm^2/m^2): 0.77 PA pr(Accel): 46.9 mmHg Reading Physician:03:29 PM
--- NOTE | 2016-11-10 17:37 | NUR ---
Social Work: Initial Assessment / Multidisciplinary Rounds Data: See initial assessment. Patient is a 76 year old male who was admitted on 11/09/16 for a stroke per H&P. Patient's insurance is Medicare and [facility]. Patient's PCP is Jesica Kirk PA-C. EMR reviewed. SW met with patient to discuss discharge planning. SW role explained. Patient states that he resides with his who has Alzheimer's in [place]. Patient states that he is I at baseline and able to perform all ADLs and care needs prior to admission. Patient states that his 's caregiver Shanna is a good support person for him. Patient confirms that his nephew Irvin French is his DPOA ([phone]) and that AD have been completed on his behalf. Patient confirms that he does drive via POV. Patient denies having a hx of home health services or SNF. Patient denies having longterm care insurance or VA benefits. Upon discharge, patient states that his family will assist with transportation needs. SW provided patient with a discharge planning checklist booklet and encouraged to call with any questions or concerns. Phone number provided. Patient was discussed in morning rounds. No concerns were noted by staff or MD. Patient had a lot of family visitors today however, patient states that he would like for his sister Cynthia Barajas ([phone]) to be his primary doorperson or luggage porter. Patient is being followed by PT and ST. PT evaluation has been completed and recommendation has been made for inpatient rehab. SW will provided available facilities to patient once an order has been placed by MD. SW will continue to follow. Assessment: Patient admitted to [facility] from home with spouse. Plan: Recommendation has been made by PT for inpatient rehab. SW will need an order from MD to discuss available options with patient. SW will continue to follow. LISA Rincon Addendum: 11/10/16 at 1756 by PAULA CLAYTON Amended: Links added.
--- NOTE | 2016-11-10 17:59 | NUR ---
Neuros R sided stroke with left sided weakness on presentation. MRI this AM. R sided headache present consistently but unchanged this shift. Failed swallow screen with ST, rectal ASA added. After PT both upper extremity and lower extremities regaining movement as well as speech slightly less slurred. Neurology consult in AM. Q2 turns while in bed at this time and frequent brief changing. Making needs known appropriately using call light with bedalarm in place at this time.
[2016-11-10] MEDS: Insulin GLARgine 100 Unit/mL Syringe SUBQ SCH (20:43)
[2016-11-11] VITALS (11 sets, daily range): BP systolic 151–199; BP diastolic 66–99; PULSE 62–86; RESP 18–24; O2SAT 90–95
[2016-11-11] MEDS: Heparin 5,000 Unit/mL Inj SUBQ SCH ×3 (00:58→17:12)
[2016-11-11] MEDS: 0.9% Sodium Chloride 1,000 ML IV SCH ×2 (00:58→11:53)
--- NOTE | 2016-11-11 01:23 | NUR ---
Neuro assessments Patient is able to squeeze gently with left hand, and once was able to lift left arm 1-2 inches while repositioning. Left leg remains flaccid. Speech is intermittently clear, sometimes slurred and word searching. Patient has remained alert and oriented, cooperative with care. Patient reports unchanged right-sided headache, administered PRN Dilaudid once. Remains NPO for failed swallow evaluation, has been self-suctioning and mouth care provided. Unable to reposition in bed without assistance, Q2 turns in place. Frequent rounding.
[2016-11-11] MEDS: HYDROmorphone 1 mg/mL Inj IVPUSH PRN ×3 (05:03→14:12)
[2016-11-11] MEDS: Insulin LISPRO 300 Unit/3 mL Inj SUBQ SCH ×4 (08:00→20:22)
--- NOTE | 2016-11-11 10:15 | CONS ---
[address] [address] CONSULTATION REPORT PATIENT: BLANCA JEFFERS V : 1940 MR#: [id number] ADMIT: 11/09/2016 JOB ID: [id number] DATE OF SERVICE: 11/11/2016 REQUESTING PHYSICIAN: Sergei Davidson MD HISTORY OF PRESENT ILLNESS: The patient is a 76-year-old gentleman, who awoke the morning of November 09 to find himself plegic on the left side. He reports he got up to use the bathroom and fell to the floor. He hit his head and shoulder on the night stand. He was found by EMS to be down for an unclear period of time. He was also noted to be initially in atrial fibrillation. He was transported to [facility] where he was appropriately evaluated for acute stroke and found to have a right MCA thrombus by CT angio in the M1 and proximal M2 segments. However, there was also evidence of a right basal ganglia acute stroke. He was deemed not a candidate for tPA due to the length of time unknown with this wake-up stroke. The case was also discussed with [place] stroke team who determined he was not a candidate for transfer since clot retrieval would be of little benefit given the evidence of stroke and dense hemiplegia of unknown duration. Overnight, the patient had no additional episodes of atrial fibrillation while on telemetry, although intraventricular conduction delay was appreciated. I have personally reviewed the MRI on the PAC system and discussed the results with Dr. Davidson. There is evidence of a right MCA distribution stroke and occlusion/thrombus of the middle cerebral artery. There is some mild mass effect without any significant clinical significance by my review. No evidence of hemorrhage. The patient's blood pressure was not elevated upon admission, and is slightly elevated at this time. He is being allowed permissive hypertension. The patient has sleep apnea and is not on his CPAP device, although it has been requested. He is on oxygen. He advises me that he is followed by Dr. Cosby, his senior chemical engineer in [place], but has not seen him in several years. He is in good spirits despite his left hemiplegia. There is slight improvement in the lower extremity today, with PT having seen him yesterday. The echocardiogram was completed on November 10. Left atrium is not well visualized. No PFO noted. The patient reports that he has been compliant with medications. PAST MEDICAL HISTORY: Coronary artery disease, diabetes, cardiac bypass in 2004, cataract surgery. SOCIAL HISTORY: Past cigarette smoker. Does drink alcohol. Is and retired. ALLERGIES: No known drug allergies. OUTPATIENT MEDICATIONS: 1. Aspirin 81 mg. 2. Hydrochlorothiazide. 3. Lisinopril. 4. Insulin. 5. Metformin. 6. Rosuvastatin. 7. Cialis. 8. Tamsulosin. 9. Nasacort. 10. Multivitamins plus calcium. 11. Vitamin C. 12. PRN hydrocodone and trazodone. INPATIENT MEDICATIONS: 1. Aspirin 81 mg. 2. Plavix 75 mg. 3. Subcutaneous heparin. 4. Hydromorphone. 5. IV fluids. 6. Atorvastatin 80 mg. REVIEW OF SYSTEMS: Left hemiplegia, upper greater than lower. PHYSICAL EXAMINATION: The patient is pleasant and cooperative, appears to be is struggling with breathing mask. Vital signs: Blood pressure elevated, 159/79, pulse is 86, telemetry with regular rate and rhythm, respiratory rate 20, afebrile, pulse oximetry 94% with mask and 2 L. Head: Normocephalic, atraumatic. No evidence of carotid bruits. Cardiac: Regular rate and rhythm. S1, S2 present. Lower extremities without lesions or edema. NEUROLOGY CONSULTATION: The patient is alert and oriented x3, with language and speech intact and fluent. There was only a slight slur due to left facial hemiplegia. Mood is euthymic, and the patient has a sense of humor. Cranial nerves: Pupils are equally reactive to light and accommodation. Extraocular movements intact, with neglect of the left visual field easily overcome. Facial asymmetry with left hemiplegia. Sensation intact bilaterally. Tongue midline. Palate raises symmetrically. SCM and shoulder shrug appear to be intact. Motor: Dense left hemiplegia of the left upper extremity. Some movement with the left lower extremity. Intact on the right upper and lower extremity. Deep tendon reflexes: Increased on the left compared to the right, with Babinski sign seen on the left. Tone: Flaccid on the left. Intact on the right upper and lower extremities. Sensation: Sensory neglect with double simultaneous extinction on the left upper and lower extremity, and patchy loss in the left lower extremity. Coordination: Intact on the right. Deferred on the left due to hemiplegia.Gait : Deferred due to hemiplegia. IMAGING STUDIES: As above. CT angio was reviewed. It does show high-grade proximal stenosis of the left internal carotid artery, and near occlusion at the origin of the right internal carotid artery. LABORATORY STUDIES: Elevated CK on admission. CBC with mildly elevated white count. Hemoglobin A1c 6.7. LDL cholesterol 62. ASSESSMENT AND RECOMMENDATION: The patient is a 76-year-old gentleman with acute stroke affecting the right middle cerebral artery, causing right middle cerebral artery distribution stroke affecting the left side. His neurologic examination shows dense weakness in the upper greater than lower left side and neglect. Likely neglect will improve as patient's edema resolves. Continuing physical therapy for recovery with plan for rehabilitation is recommended. There is evidence of high-grade near occlusion of the right internal carotid artery, as well as proximal high-grade stenosis of the left internal carotid artery. The CT angio is noted to have extremely poor quality and degraded due to motion artifact. Although a paroxysmal atrial fibrillation is possible etiology of the patient's stroke, so is carotid stenosis. I recommended discussing the need for urgent surgical treatment for the right symptomatic carotid stenosis with [place]. I advised aspirin and Plavix due to the intercranial stenosis for 90 days. After that period of time the risk of intracranial hemorrhage outweighs the benefit of continuing dual antiplatelet therapy. I recommended continuing to monitor for atrial fibrillation during this visit and was prolonged cardiac monitoring after discharge with follow-up with his senior chemical engineer. Consideration of anticoagulation after waiting 2 weeks and with a negative head CT is acceptable if there is any evidence of atrial fibrillation is advised. He should follow up with Dr. Cosby to discuss this. Continue recommendations from the stroke order set. Control of his other cardiovascular risks of hypertension, hyperlipidemia, and diabetes is advised. My recommendations were discussed with Dr. Davidson and the patient. Thank you for this consultation. FRANCOISE
--- NOTE | 2016-11-11 10:16 | PCM.PNMED ---
Subjective Date of Service Nov 11, 2016 Subjective Pt did desat overnight, not on his CPAP. No new neuro deficits. Exam Vital Signs Vital Sign - Last Date Time Temp Pulse Resp B/P Pulse Ox O2 Delivery O2 Flow Rate FiO2 11/11/16 04:55 36.9 86 20 159/79 94 Simple Mask 2.00 Intake and Output 11/10/16 11/10/16 11/11/16 Cumulative From/Thru 15:00 23:00 07:00 11/09/16 12:55 - 11/11/16 06:55 Intake Total 1089 ml 1275 ml 3860 ml Output Total 312 ml 519 ml 1672 ml Balance 777 ml 756 ml 2188 ml Intake Oral 0 ml 0 ml 0 ml IV Total 1089 ml 1275 ml 3860 ml Output Urine Total 312 ml 519 ml 1672 ml # Voids 1 # Bowel Movements 0 0 0 Exam Gen: NAD, AOx, L sided facial droop. Slurred speech. HEENT: NCAT, PERRLA, EOMI, MMM, sclera anicteric. Neck: Soft, supple, no thyromegaly/JVD/LAD. Resp: CTAB, no R/R/W. CV: S1 S2, RRR, No M/R/G Abd: Soft, (+) BS, NT/ND, no guarding/rebound/organomegaly. Ext: +PP, No edema. Skin: Superficial abrasion to the L knee. Neuro/Psych: Cooperative, appr mood/affect. R sided facial droop. LUE- 1/5 strength. LLE- 1/5. Sensation intact to bilateral upper and lower extremities. No R sided deficits. IVs and Medications Medications Reviewed: Medications were reviewed in detail Lab and Diagnostics Result Diagram: 11/10/16 0615 11/10/16 0750 X-Rays, CTs and MRIs 11/09/16 MRI BRAIN WITH AND WITHOUT CONTRAST Brain: Scant [id number] midline shift. No intracranial bleeds or masses. No abnormal intracranial enhancement. The brainstem appears normal. Diffusion- weighted images demonstrate definite acute ischemic insults involving the right middle cerebral artery vascular distribution and extending into the basal ganglia on the right, with largest measurements of the area of subacute stroke currently measuring up to 7.2 cm AP and 3.8 cm transverse with a craniocaudad extent of approximately 3.9 cm. Subtle flow abnormalities are present on T2 and postcontrast T1 imaging in the area of thrombus present at the junction of the M1 and M2 segments right middle cerebral artery. Several additional punctate foci of infarction are present involving the anterior tip of the right temporal lobe and also the temporal occipital junction on the right. No chronic ischemic insults. Normal intravascular flow voids are present. IMPRESSION: Moderately large right middle cerebral artery vascular distribution with early mild to moderate mass effect, causing only slight right- to-left deviation of the midline structures, without associated hemorrhage. As discussed above and previously during CT angiographic report there is a thrombus that currently is likely partially obstructing the junction of the right middle cerebral artery M1-M2 junction. A portion of this thrombus is involving the lenticulostriate origins on the right is the presumed explanation for the basal ganglia contiguous infarction in that area and embolic etiology is the likely cause given the presence of several additional punctate foci of subacute ischemic injury involving the anterior and posterior margins of the right temporal lobe Chest Xray Interpretation: IMPRESSION: 1. Focal opacity in the periphery of the left midlung suspicious for pulmonary contusion. 2. Left seventh and eighth rib fractures. Dictated by: Cindi Red MD, PhD on 11/09/2016 at 13:28 Approved by: Cindi Red MD, PhD on 11/09/2016 at 13:30 View: Portable, 1 view Interpretation / Wet Read by: Interpret - Radiologist CT ANGIO HEAD AND NECK: IMPRESSION: 1. Subtle loss of morrow-white matter change involving the right basal ganglia suspicious for acute infarct. 2. No intracranial hemorrhage. 3. Absence of flow in the distal M1 segment and the proximal M2 segments of the right middle cerebral artery compatible presence of thrombus. 4. 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 5. High-grade, proximally 70-80% stenosis of the origin the left internal carotid artery. 6. Moderate stenosis of the origins of the vertebral arteries. 7. Image quality severely degraded by patient motion artifact. 8. Findings telephoned to Dr. Suleman Pedroza on 11/09/2016 at 1557 hrs. 12-lead ECG ECG Interpretation: sinus rate 70 non specific intraventricular conduction delay poor baseline quality multiple PVC's no obvious ST elevation no prior for comparison Time: 12:55 Interpreted by: ED physician Assessment & Plan Patient is a 76 year old male with a history of CAD and DM who presents to the ED via EMS complaining of L sided paralysis upon waking this morning with CTA- finding of Acute infarct Right Basal Ganglia right middle cerebral artery compatible presence of thrombus. Moderately Large Right MCA Ischemic Infarct involving Basal Ganglia, acute, active- p/w Left sided hemiparesis. MRI Brain- shows early mild to moderate mass effect. Per MRI/CTA- Thrombus that likely partially obstructing the junction of the right MCA at M1-M2 junction. Presented outside of tPA window. ED called [facility] Neuro, not a candidate for clot retrieval. Etiology likely Atrial Fibrillation. Allowed permissive HTN first 48 hrs, cardiac monitoring. 11/10-Echo- EF 60-65%, atria are not well visualized but grossly appear normal in size. - Lipid Panel- uremarkable. - Cardiac Monitoring for possible A-Fib. - Consulted Neuro- Dr. Chand. Her initial Recs- med management w/ dual anti- platelet therapy. ASA/Plavix for 90 days. High dose Atorvastatin. PT/OT/SCIENTIFIC RESEARCH ASSOCIATE. - Added AR ASA prn if can't take PO Meds. - PT recs SNF. f/u SCIENTIFIC RESEARCH ASSOCIATE recs. - Can follow up with Dr. Chand in 2-3 weeks. B/L Carotid Artery Stenosis- poa, active. Per CT- High-grade, 90% to near- complete occlusion of the origin of the right ICA. High-grade, proximally 70-80 % stenosis of the origin the L ICA. Mild to Moderate mass effect due to R MCA Infarct- acute, active. Pt is Hemodynamically stable. Neuro exam unchanged since admit. - For reference; Baseline Neuro Exam as of 11/10- Alert and Oriented x 3. Moderate slurred speech. R Facial Droop, Left Hemiparesis. No R sided deficits at all. Sensation intact bilaterally. - frequent q4h Neuro checks, consider upgrade to ICU if more frequent neuro checks or change in mental status. - Discussed case with Neuro-Dr. Chand. No Decadron. Get Stat CT Head for any significant change in Neuro exam or if becomes hemodynamically unstable. If mass effect worsens would need urgent transfer to [facility] for possible craniotomy. B/L Carotid Artery Stenosis- poa, active. Per CT- High-grade, 90% to near- complete occlusion of the origin of the right ICA. High-grade, proximally 70-80 % stenosis of the origin the L ICA. - 11/11- spoke with [facility] Vascular Surgeon. They would want to wait 2-3 weeks until CVA stable before performing Carotid Endarterectomy. Instructed to schedule a follow up at [facility]. Agree with dual antiplatelet therapy. hx of Ground Level Fall, acute, active. Occurred 2 months ago per pt. sustained Left seventh and eighth rib fractures per CXR. Left Pulmonary Contusion. Pain can give morphine. CAD s/p CABG-chronic c/w ASA. Allow for permissive HTN, BP has been low off all HTN Meds. Will hold Metoprolol and resume at low dose once BP allows. DM-chronic - SSI, fingersticks. - Held hm Lantus 40u given low blood sugars. -Hold Metformin. - Hba1c of 6.7 Code-Full Status- Patient is admitted under inpatient status expected length of stay greater than 2 midnights due to severity of presenting symptoms, risk of adverse events, and complexity of treatment plan. GI Prophylaxis: Proton Pump Inhibitor VTE Prophylaxis: Sub-Q Heparin (Unfractionated) VTE Mechanical Devices: Intermittant Pneumatic CD Resuscitation Status: CPR: Attempt Resuscitation Sergei Davidson MD Nov 11, 2016 10:16
--- NOTE | 2016-11-11 12:07 | NUR ---
Evaluation completed. Please go to "Notes" then click on "Assessments and Notes" (bottom left corner of screen). Then select appropriate discipline tab on top of screen.
--- NOTE | 2016-11-11 12:20 | NUR ---
Social Work-continued d/c planning: Data& assessment:EMR reviewed. Pt is on day 2 of hospitalization for stroke per H&P. Pt is not medically stable anticipate several more days.PT has seen pt and recommending inpt rehab. ST involved and OT pending. During morning rounds, informed SW that pt may transfer to [facility]. No MD orders have been obtained at this time. SW will continue to follow. Plan:SW to continue to follow for needs. No MD orders have been received at this time. Pt may transfer to [facility]. PT recommending Inpt rehab. SW will continue to follow. LISA Sevilla
--- NOTE | 2016-11-11 15:44 | NUR ---
NUTRITION ASSESSMENT: ASSESS: 76 YO male admitted for stroke. Pt may transfer to [facility] per MD. Pt has been NPO x 2 days as pt has been failing his ST eval. PMHx: CAD, DM LABS: Reviewed. Alb 4.4. MEDS: Reviewed. GI: No BM reported. CURRENT WT: 132.2 kg. IBW: 78.2 kg. Adj BW: 91.7 kg. DIET: NPO x 2 days. EST. NEEDS: 6009-6941 kcals (25-30 kcals/kg Adj. BW), 110-140 g protein (1.2-1.5 g/kg Adj. BW) NUTRITION DIAGNOSIS: 1.) Chewing / Swallowing difficulties related to motor causes (stroke) as evidenced by current NPO diet status x 2 days, ST following. 2.) Inadequate oral intake related to inability to consume sufficient energy as evidenced by NPO diet status x 2 days. NUTRITION INTERVENTION: 1.) Continue to advance diet as able per ST recommendations. 2.) If pt is unable to have diet advanced within the next 1-2 days, strongly consider nutrition support if consistent with pt plan of care. MONITOR / EVAL: Diet advancement / tolerance, labs, nutritional status. Follow per high nutritional risk guidelines.
--- NOTE | 2016-11-11 16:26 | NUR ---
Shift: Pt a/o, able to lift left arm and leg approx 2-3 inches off bed, sat at EOB with PT. VSS, tele SR with IVCD, O2 sats 96% on 3L oxymask, home Cpap brought by friend, RT notified. Remains NPO r/t failed swallow eval, blood sugars WNL, incontinent, santosh care provided as needed. Q2 turns, affected side positioned with pillows, care ongoing.
[2016-11-11] MEDS ORDERED: Albuterol-Ipratropium 3 mL Inhalation Solution NEB PRN (17:30)
--- NOTE | 2016-11-11 17:34 | NUR ---
Social Work-continued d/c planning: Data:EMR reviewed. Pt is on day 2 of hospitalization for stroke per H&P. Pt is not medically stable anticipate 2 more days. order received for inpt rehab. SW attempted to follow up with pt, but RN in room. SW to follow up with pt tomorrow. SW will continue to follow. Assessment:pt who would benefit from inpt . Plan:SW to follow up with pt tomorrow regarding inpt rehab. SW will continue to follow. LISA Sevilla
[2016-11-11] MEDS ORDERED: Furosemide 10 mg/mL 2 mL Inj IVPUSH ONE (17:35)
[2016-11-11] MEDS: Albuterol-Ipratropium 3 mL Inhalation Solution NEB SCH (17:42)
[2016-11-11] MEDS: MeTOProlol 1 mg/mL 5 mL Inj IVPUSH SCH (18:02)
--- NOTE | 2016-11-11 18:40 | DRSVH ---
PROCEDURE: X-RAY CHEST ONE VIEW, PORTABLE ([id number]) INDICATIONS: SOB TECHNIQUE: One view of the chest was acquired. COMPARISON: [facility], RG, CHEST 2VW, 07/16/2005, 15:00. [facility], CR, X R CHEST 1VW (PORTABLE), 11/09/2016, 13:15. FINDINGS: Surgical changes and devices: Sternotomy. Lungs and pleura: Lung volumes are small likely secondary to shallow inspiration. Left basilar opaci ty has decreased. No pleural effusions or pneumothorax. Lungs are clear. Mediastinum: Mediastinal contours appear normal. Heart size is normal. Bones and chest wall: Left rib fractures are noted, indeterminate in chronicity. Overlying soft tiss ues appear unremarkable. IMPRESSION: 1. Decreased left basilar opacity. 2. Left rib fractures of indeterminate chronicity. Dictated by: Bruno Lopez M.D. on 11/11/2016 at 18:33 Approved by: Bruno Lopez M.D. on 11/11/2016 at 18:38
[2016-11-11] MEDS: Insulin GLARgine 100 Unit/mL Syringe SUBQ SCH (20:22)
[2016-11-11] MEDS ORDERED: Enalaprilat Inj 2.5 MG in Dextrose 5% 50 ML IV ONE (20:25)
[2016-11-11] MEDS ORDERED: cloNIDine 0.1 mg Tablet PO ONE (20:25)
[2016-11-11] MEDS ORDERED: Enalaprilat 1.25 mg/mL 2 mL Inj IVPUSH ONE (20:35)
--- NOTE | 2016-11-11 21:34 | NUR ---
Hypertension Patient's blood pressure at 8pm was 189/90. Rechecked, 199/81. paged, new order for OT dose of IV Vasotec. Administered medication, repeat blood pressure after medication 163/77. Will continue to monitor.
[2016-11-12] VITALS (13 sets, daily range): BP systolic 138–173; BP diastolic 68–82; PULSE 61–94; RESP 20–22; O2SAT 90–96
[2016-11-12] MEDS: Albuterol-Ipratropium 3 mL Inhalation Solution NEB SCH ×6 (00:30→20:21)
[2016-11-12] MEDS: Heparin 5,000 Unit/mL Inj SUBQ SCH ×3 (01:45→17:07)
[2016-11-12] MEDS: MeTOProlol 1 mg/mL 5 mL Inj IVPUSH SCH ×4 (02:12→20:39)
[2016-11-12 06:17] LABS: BASOPHILS % (AUTO) 0.2 % (0-3); EOSINOPHILS % (AUTO) 4.1 % (0-5); MONOCYTES % (AUTO) 12.2 % (4-12); Mean Corpuscular Hemoglobin 29.8 pg (27.0-35.0); Mean Corpuscular Volume 88.1 fL (81-100); NEUTROPHILS % (AUTO) 67.1 % (40-74); Platelet Count 166 bil/L (150-400)
--- NOTE | 2016-11-12 07:49 | PCM.PNMED ---
Subjective Date of Service Nov 12, 2016 Subjective Patient has passed swallo eval, stimulation diet is initiated. He was very sleepy in the room, not wearing his CPAP but wearing 2L of oxygen. Thinks he is [place] hotel with a girl from [facility]. Stated he was able to get up to go the bath room yesterday. Otherwise answered questions ok. Exam Vital Signs Vital Sign - Last Date Time Temp Pulse Resp B/P Pulse Ox O2 Delivery O2 Flow Rate FiO2 11/12/16 07:41 94 Nasal Cannula 2.00 11/12/16 05:06 36.4 65 20 165/82 Intake and Output 11/11/16 11/11/16 11/12/16 Cumulative From/Thru 14:59 22:59 06:59 11/09/16 12:55 - 11/12/16 05:09 Intake Total 1024 ml 0 ml 4884 ml Output Total 919 ml 2591 ml Balance 1024 ml -919 ml 2293 ml Intake Oral 0 ml 0 ml 0 ml IV Total 1024 ml 4884 ml Output Urine Total 919 ml 2591 ml # Voids 2 3 # Bowel Movements 0 0 0 Exam General: Sleepy HEENT: conjunctival erythema is noted HEart: RRR, no s3/s4 Lungs: CTA no crackles/wheezes Abd: Soft, non distended Ext: No edema Neuro: decreased left shoulder, arm and leg strength. Barely moving left ext. Right sided facial droop is present. OTher CN are intact, not oriented to loc MSK: Slight movement in left LE and UE, movement is intact on right side IVs and Medications IV Fluids NSS 100 cc/hr Medications Reviewed: Medications were reviewed in detail Lab and Diagnostics Result Diagram: 11/12/16 0550 11/10/16 0750 X-Rays, CTs and MRIs 11/09/16 MRI BRAIN WITH AND WITHOUT CONTRAST Brain: Scant [id number] midline shift. No intracranial bleeds or masses. No abnormal intracranial enhancement. The brainstem appears normal. Diffusion- weighted images demonstrate definite acute ischemic insults involving the right middle cerebral artery vascular distribution and extending into the basal ganglia on the right, with largest measurements of the area of subacute stroke currently measuring up to 7.2 cm AP and 3.8 cm transverse with a craniocaudad extent of approximately 3.9 cm. Subtle flow abnormalities are present on T2 and postcontrast T1 imaging in the area of thrombus present at the junction of the M1 and M2 segments right middle cerebral artery. Several additional punctate foci of infarction are present involving the anterior tip of the right temporal lobe and also the temporal occipital junction on the right. No chronic ischemic insults. Normal intravascular flow voids are present. IMPRESSION: Moderately large right middle cerebral artery vascular distribution with early mild to moderate mass effect, causing only slight right- to-left deviation of the midline structures, without associated hemorrhage. As discussed above and previously during CT angiographic report there is a thrombus that currently is likely partially obstructing the junction of the right middle cerebral artery M1-M2 junction. A portion of this thrombus is involving the lenticulostriate origins on the right is the presumed explanation for the basal ganglia contiguous infarction in that area and embolic etiology is the likely cause given the presence of several additional punctate foci of subacute ischemic injury involving the anterior and posterior margins of the right temporal lobe Chest Xray Interpretation: IMPRESSION: 1. Focal opacity in the periphery of the left midlung suspicious for pulmonary contusion. 2. Left seventh and eighth rib fractures. Dictated by: Cindi Red MD, PhD on 11/09/2016 at 13:28 Approved by: Cindi Red MD, PhD on 11/09/2016 at 13:30 View: Portable, 1 view Interpretation / Wet Read by: Interpret - Radiologist CT ANGIO HEAD AND NECK: IMPRESSION: 1. Subtle loss of morrow-white matter change involving the right basal ganglia suspicious for acute infarct. 2. No intracranial hemorrhage. 3. Absence of flow in the distal M1 segment and the proximal M2 segments of the right middle cerebral artery compatible presence of thrombus. 4. 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 5. High-grade, proximally 70-80% stenosis of the origin the left internal carotid artery. 6. Moderate stenosis of the origins of the vertebral arteries. 7. Image quality severely degraded by patient motion artifact. 8. Findings telephoned to Dr. Suleman Pedroza on 11/09/2016 at 1557 hrs. 12-lead ECG ECG Interpretation: sinus rate 70 non specific intraventricular conduction delay poor baseline quality multiple PVC's no obvious ST elevation no prior for comparison Time: 12:55 Interpreted by: ED physician Assessment & Plan Patient is a 76 year old male with a history of CAD and DM who presents to the ED via EMS complaining of L sided paralysis upon waking this morning with CTA- finding of Acute infarct Right Basal Ganglia right middle cerebral artery compatible presence of thrombus. Moderately Large Right MCA Ischemic Infarct involving Basal Ganglia, acute, active- p/w Left sided hemiparesis. MRI Brain- shows early mild to moderate mass effect. Per MRI/CTA- Thrombus that likely partially obstructing the junction of the right MCA at M1-M2 junction. Presented outside of tPA window. ED called [facility], not a candidate for clot retrieval. Etiology likely Atrial Fibrillation. Allowed permissive HTN first 48 hrs, cardiac monitoring. 11/10-Echo- EF 60-65%, atria are not well visualized but grossly appear normal in size. - Lipid Panel- uremarkable. - Cardiac Monitoring for possible A-Fib. - Consulted Neuro- Dr. Chand. Her initial Recs- med management w/ dual anti- platelet therapy. ASA/Plavix for 90 days. High dose Atorvastatin. 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 - Added CA ASA prn if can't take PO Meds. - PT recs Inpt rehab. Speech advanced his diet on 11/12 to stim diet, still no liquids, started IVF - Can follow up with Dr. Chand in 2-3 weeks. Allergic Conjunctivitis acute -- Artifical tears ordred -- No pataday on formulary -- consider azalastine Mild to Moderate mass effect due to R MCA Infarct- acute, active. Pt is Hemodynamically stable. Neuro exam unchanged since admit. - For reference; Baseline Neuro Exam as of 11/10- Alert and Oriented x 3. Moderate slurred speech. R Facial Droop, Left Hemiparesis. No R sided deficits at all. Sensation intact bilaterally. - frequent q4h Neuro checks, consider upgrade to ICU if more frequent neuro checks or change in mental status. - Discussed case with Neuro-Dr. Chand. No Decadron. Get Stat CT Head for any significant change in Neuro exam or if becomes hemodynamically unstable. If mass effect worsens would need urgent transfer to [facility] for possible craniotomy. B/L Carotid Artery Stenosis- poa, active. Per CT- High-grade, 90% to near- complete occlusion of the origin of the right ICA. High-grade, proximally 70-80 % stenosis of the origin the L ICA. - 11/11- spoke with [facility]. They would want to wait 2-3 weeks until CVA stable before performing Carotid Endarterectomy. Instructed to schedule a follow up at [facility]. Agree with dual antiplatelet therapy. hx of Ground Level Fall, acute, active. Occurred 2 months ago per pt. sustained Left seventh and eighth rib fractures per CXR. Left Pulmonary Contusion. Morphine for pain CAD s/p CABG-chronic c/w ASA. Allow for permissive HTN, BP has been low off all HTN Meds. Will hold Metoprolol and resume at low dose once BP allows. DM-chronic - SSI, fingersticks. - Held hm Lantus 40u given low blood sugars. -Hold Metformin. - Hba1c of 6.7 Code-Full Status- Patient is admitted under inpatient status expected length of stay greater than 2 midnights due to severity of presenting symptoms, risk of adverse events, and complexity of treatment plan. High risk meds: Dilaudid IV Dispo: Inpt rehab per PT/UR/SW GI Prophylaxis: Proton Pump Inhibitor VTE Prophylaxis: Sub-Q Heparin (Unfractionated) VTE Mechanical Devices: Intermittant Pneumatic CD Resuscitation Status: CPR: Attempt Resuscitation Time spent 30 min Spring Schulte DO Nov 12, 2016 07:49
[2016-11-12] MEDS: Insulin LISPRO 300 Unit/3 mL Inj SUBQ SCH ×4 (08:00→20:39)
--- NOTE | 2016-11-12 12:31 | NUR ---
Social Work-continued d/c planning: Data:EMR reviewed. Pt is on day 3 of hospitalization for stroke per H&P. Pt is not medically stable anticipate several more days. PT has seen pt and recommended Inpt rehab. OT has seen pt and likely recommending inpt rehab. ST also working with pt. order received for inpt rehab. ANA met with pt, niece Rosetta [phone], and friend Rc at bedside, SW role explained. SW discussed recommendation of Inpt rehab with pt and family/friends. SW explained the two facilities, silvervue tablet provided. SW explained with inpt rehab they will want someone from the family to contact and pt will need to have support likely 24/7 at home. Family/friend are in agreement that pt would likely have this level of care at home. Pt's currently has 24/7 care at home, while pt is hospitalized. Pt has decided he would like his niece Rosetta to be the main contact acid plant operator helper. ANA explained both facilities in [place] and [facility]. They would like referrals to both facilities with [facility] being their first choice. SW faxed clinicals to both facilities. ANA also explained that if Inpt rehab does not feel like pt would be a good candidate then local SNF would need to be explored, pt and family/friends agreeable to this plan. ANA will continue to follow. Assessment:Pt who would benefit from inpt rehab. Plan:Referral has been made to both 1.) [facility] Inpt rehab and 2.) [place] inpt rehab. ANA will continue to follow. LISA Sevilla Addendum: 11/12/16 at 1444 by ALEXANDRIA REYNOLDS ANA received a call back from Parvin at [facility] who confirms she received referral. Parvin states that she will give referral to director intelligence analysis programs for review. Parvin's phone number is [phone]. LISA Sevilla
[2016-11-12] MEDS: 0.9% Sodium Chloride 1,000 ML IV SCH (18:56)
--- NOTE | 2016-11-12 19:29 | NUR ---
shift note Pt is alert and oriented X3 but forgetful. minimal movement or feeling in upper and lower ext. Pt can wiggle toes and fingers. Left hand operations systems specialist weaker than than right. Mildly slurred speech. Left facial droop. pt can planter flex LLE but unable to do dorsi flexation. Pt was able to pass 4th swallow eval and tolerated mashed potatoes and pudding. Pt c/o mild headache but did not want and RX. Pts c/o dry itchy eyes. Paged MD for eye drops but none were ordered. MD stated that pt was hallucinating and not making sense during her assessment; RT placed CPAP on pt and when this RN assessed pt he was acting appropriate.
[2016-11-12] MEDS: Insulin GLARgine 100 Unit/mL Syringe SUBQ SCH (20:39)
[2016-11-13] VITALS (12 sets, daily range): BP systolic 155–189; BP diastolic 72–93; PULSE 61–84; RESP 18–22; O2SAT 92–98
[2016-11-13] MEDS: Heparin 5,000 Unit/mL Inj SUBQ SCH ×4 (00:37→23:40)
[2016-11-13] MEDS ORDERED: HYDROmorphone 1 mg/mL Inj IVPUSH PRN (02:15)
--- NOTE | 2016-11-13 02:53 | NUR ---
Activity Patient has been restless and fidgety in the bed, requiring numerous repositioning. Strength appears to be improving, able to lift both left arm and leg and hold briefly. Notes good sensation in each. Has been incontinent of urine. At times appears to be confused but re-orients easily.
[2016-11-13] MEDS: 0.9% Sodium Chloride 1,000 ML IV SCH ×3 (03:43→22:27)
[2016-11-13] MEDS: Albuterol-Ipratropium 3 mL Inhalation Solution NEB SCH ×4 (07:38→21:02)
[2016-11-13] MEDS: Insulin LISPRO 300 Unit/3 mL Inj SUBQ SCH ×4 (08:00→22:00)
[2016-11-13] MEDS: Artificial Tears 15 mL Ophthalmic Solution BOTH_EYES PRN ×2 (08:06→22:26)
--- NOTE | 2016-11-13 12:20 | NUR ---
Social Work-readiness for discharge: Data:EMR Reviewed. Pt is on day 4 of hospitalization for stroke per H&P. Pt is not medically stable anticipate 1-2 more days. PT/OT/ST have seen pt and recommend Inpt rehab. ST to see pt again today to determine if diet can be advanced, if not pt may require PEG tube. ANA spoke with pt's william Sargent and pt today and explained that [facility] has accepted pt for inpt rehab. Parvin to come in to see pt today from [place]. [facility] still pending at this time. William Sargent to speak with Billy today. ANA will continue to follow. Assessment:pt who would benefit from inpt rehab. Plan:[facility] has accepted pt. [facility] still pending. ANA will continue to follow. LISA Sevilla Addendum: 11/13/16 at 1708 by ALEXANDRIA OLGUIN ANA also provided william with senior resource guidebook for equipment operator intermodal yard caregiving options for pt and . LISA Sevilla
--- NOTE | 2016-11-13 12:23 | NUR ---
has declined pt. [facility] pt. LISA Sevilla
--- NOTE | 2016-11-13 13:34 | ABG ---
DateTimeAnalyzed 13:24:39 -_ pH ____7.473 - pCO2 ___40.0__ -mmHg pO2 ___84.1__ -mmHg HCO3- ___29.3__ -mmol/L ABE ____5.2__ -mmol/L tHb ___14.2__ -g/dL O2Hb ___95.9__ -% COHb ____1.6__ -% MetHb ____0.0__ -% sO2 ___96.9__ -% FIO2 ___39.0__ -% Drawn By as - Date/Time Notified____ 13:34:00 -_ Spontaneous_RR 16 -b/min Liter_Flow ____4.00_ -L/min Oxygen Device 1 Home CPAP - Notified By ams - Notified Whom dr smith - K+ ____3.8__ -mmol/L 3.5 5.0 tO2 ___19.1__ -Vol% Noah test _Positive -
--- NOTE | 2016-11-13 16:53 | NUR ---
mentation, respiratory, activity pt. A&O, forgetful at times, easy to reorient. Pt. seems more forgetful and disoriented this afternoon. Pt. tolerating 2-3L NC this am to keep sats above 92%; ABG done; see chart for results; receiving scheduled nebs. Pt. placed on CPAP with 4L bleed in early this afternoon; pt. sats mid-high 90's. Pt. worked with PT today; stood at eob with fww and 2pa; pt. heavily listing to left. Met with Katherine from [facility] inpatient rehab; spoke with william over the phone.
--- NOTE | 2016-11-13 18:13 | NUR ---
hypertension pt. hypertensive, bp 182/79 hr 63; md aware; pt. receiving scheduled metoprolol 100 mg po bid; md added lisinopril 20 mg po; first dose given this evening.
[2016-11-13] MEDS: Insulin GLARgine 100 Unit/mL Syringe SUBQ SCH (21:00)
--- NOTE | 2016-11-13 21:39 | PCM.PNMED ---
Subjective Date of Service Nov 13, 2016 Subjective Patient is seen and examined. His is more alert and oriented today, still complaining of red eyes. He states that his pain ongoing for some time, not completely new. He states he has sandpaper sensation in his eyes, but no visual deficits are present. Is moving his extremities better today, is able to stand up with the help of physical therapy. He gave his verbal consent for placement of a PEG tube during team rounding. Exam Vital Signs Vital Sign - Last Date Time Temp Pulse Resp B/P Pulse Ox O2 Delivery O2 Flow Rate FiO2 11/13/16 05:03 36.2 80 20 162/74 93 CPAP 4.00 11/12/16 20:21 21 Intake and Output 11/12/16 11/12/16 11/13/16 Cumulative From/Thru 14:59 22:59 06:59 11/09/16 12:55 - 11/13/16 05:12 Intake Total 0 ml 900 ml 5784 ml Output Total 414 ml 1100 ml 4105 ml Balance -414 ml -200 ml 1679 ml Intake Oral 0 ml 0 ml 0 ml IV Total 900 ml 5784 ml Output Urine Total 414 ml 1100 ml 4105 ml # Voids 3 # Bowel Movements 0 0 0 Exam General: Alert and oriented HEENT: conjunctival erythema is noted HEart: RRR, no s3/s4 Lungs: CTA no crackles/wheezes Abd: Soft, non distended Ext: No edema Neuro: decreased left shoulder, arm and leg strength. Improved left extremity range of motion, improved facial droop. OTher CN are intact Psychiatric: Affect is pleasant, more is cooperative and hopeful IVs and Medications IV Fluids Normal 100 mL per hour Medications Reviewed: Medications were reviewed in detail Lab and Diagnostics Result Diagram: 11/12/16 0550 11/10/16 0750 X-Rays, CTs and MRIs 11/09/16 MRI BRAIN WITH AND WITHOUT CONTRAST Brain: Scant [id number] midline shift. No intracranial bleeds or masses. No abnormal intracranial enhancement. The brainstem appears normal. Diffusion- weighted images demonstrate definite acute ischemic insults involving the right middle cerebral artery vascular distribution and extending into the basal ganglia on the right, with largest measurements of the area of subacute stroke currently measuring up to 7.2 cm AP and 3.8 cm transverse with a craniocaudad extent of approximately 3.9 cm. Subtle flow abnormalities are present on T2 and postcontrast T1 imaging in the area of thrombus present at the junction of the M1 and M2 segments right middle cerebral artery. Several additional punctate foci of infarction are present involving the anterior tip of the right temporal lobe and also the temporal occipital junction on the right. No chronic ischemic insults. Normal intravascular flow voids are present. IMPRESSION: Moderately large right middle cerebral artery vascular distribution with early mild to moderate mass effect, causing only slight right- to-left deviation of the midline structures, without associated hemorrhage. As discussed above and previously during CT angiographic report there is a thrombus that currently is likely partially obstructing the junction of the right middle cerebral artery M1-M2 junction. A portion of this thrombus is involving the lenticulostriate origins on the right is the presumed explanation for the basal ganglia contiguous infarction in that area and embolic etiology is the likely cause given the presence of several additional punctate foci of subacute ischemic injury involving the anterior and posterior margins of the right temporal lobe Chest Xray Interpretation: IMPRESSION: 1. Focal opacity in the periphery of the left midlung suspicious for pulmonary contusion. 2. Left seventh and eighth rib fractures. Dictated by: Cindi Red MD, PhD on 11/09/2016 at 13:28 Approved by: Cindi Red MD, PhD on 11/09/2016 at 13:30 View: Portable, 1 view Interpretation / Wet Read by: Interpret - Radiologist CT ANGIO HEAD AND NECK: IMPRESSION: 1. Subtle loss of morrow-white matter change involving the right basal ganglia suspicious for acute infarct. 2. No intracranial hemorrhage. 3. Absence of flow in the distal M1 segment and the proximal M2 segments of the right middle cerebral artery compatible presence of thrombus. 4. 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 5. High-grade, proximally 70-80% stenosis of the origin the left internal carotid artery. 6. Moderate stenosis of the origins of the vertebral arteries. 7. Image quality severely degraded by patient motion artifact. 8. Findings telephoned to Dr. Suleman Pedroza on 11/09/2016 at 1557 hrs. 12-lead ECG ECG Interpretation: sinus rate 70 non specific intraventricular conduction delay poor baseline quality multiple PVC's no obvious ST elevation no prior for comparison Time: 12:55 Interpreted by: ED physician Assessment & Plan Patient is a 76 year old male with a history of CAD and DM who presents to the ED via EMS complaining of L sided paralysis upon waking this morning with CTA- finding of Acute infarct Right Basal Ganglia right middle cerebral artery compatible presence of thrombus. Moderately Large Right MCA Ischemic Infarct involving Basal Ganglia, acute, active- p/w Left sided hemiparesis. MRI Brain- shows early mild to moderate mass effect. Per MRI/CTA- Thrombus that likely partially obstructing the junction of the right MCA at M1-M2 junction. Presented outside of tPA window. ED called [facility], not a candidate for clot retrieval. Etiology likely Atrial Fibrillation. Allowed permissive HTN first 48 hrs, cardiac monitoring. 11/10-Echo- EF 60-65%, atria are not well visualized but grossly appear normal in size. - Lipid Panel- uremarkable. - Cardiac Monitoring for possible A-Fib. - Consulted Neuro- Dr. Chand. Her initial Recs- med management w/ dual anti- platelet therapy. ASA/Plavix for 90 days. High dose Atorvastatin. 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 - Added OR ASA prn if can't take PO Meds. - PT recs Inpt rehab. Speech advanced his diet on 11/12 to stim diet, still no liquids, started IVF - Can follow up with Dr. Chand in 2-3 weeks. -- Per speech therapy, patient is still unable to handle thin liquids are thickened liquids. Consent is obtained from patient for PEG tube placement -- 11/13 discussed PEG tube placement with GI, they want him off of Plavix for 5 days for the procedure, held Plavix Obstructive sleep apnea, chronic present on admission -- Patient continues to need 2-4 L of oxygen via nasal cannula -- ABG today did not show any concern for respiratory depression -- Appears that he is not taking deep breaths, encourage incentive spirometry -- Consider pulmonology consult Allergic Conjunctivitis acute -- Artifical tears ordred -- No pataday or azalastine on formulary. Visine . Eyedrops are ordered. Cerebral edema, acute, present on admission improving -- Stroke/CVA treatment as above Mild to Moderate mass effect due to R MCA Infarct- acute, active. Pt is Hemodynamically stable. Neuro exam unchanged since admit. - For reference; Baseline Neuro Exam as of 11/10- Alert and Oriented x 3. Moderate slurred speech. R Facial Droop, Left Hemiparesis. No R sided deficits at all. Sensation intact bilaterally. - frequent q4h Neuro checks, consider upgrade to ICU if more frequent neuro checks or change in mental status. - Discussed case with Neuro-Dr. Chand. No Decadron. Get Stat CT Head for any significant change in Neuro exam or if becomes hemodynamically unstable. If mass effect worsens would need urgent transfer to [facility] for possible craniotomy. B/L Carotid Artery Stenosis- poa, active. Per CT- High-grade, 90% to near- complete occlusion of the origin of the right ICA. High-grade, proximally 70-80 % stenosis of the origin the L ICA. - 11/11- spoke with [facility]. They would want to wait 2-3 weeks until CVA stable before performing Carotid Endarterectomy. Instructed to schedule a follow up at [facility]. Agree with dual antiplatelet therapy. hx of Ground Level Fall, acute, active. Occurred 2 months ago per pt. sustained Left seventh and eighth rib fractures per CXR. Left Pulmonary Contusion. Morphine for pain CAD s/p CABG-chronic c/w ASA. Allow for permissive HTN, BP has been low off all HTN Meds. Will hold Metoprolol and resume at low dose once BP allows. DM-chronic - SSI, fingersticks. - Held hm Lantus 40u given low blood sugars. Patient has not been needing correction as he is also not eating much -Hold Metformin. - Hba1c of 6.7 Chronic hypertension ongoing -- Restart patient's metoprolol this a.m. -- Restart 20 mg of lisinopril this afternoon due to elevated blood pressures, we will change to full dose if blood pressure is not under control -- continue to monitor -- Code-Full Status- Patient is admitted under inpatient status expected length of stay greater than 2 midnights due to severity of presenting symptoms, risk of adverse events, and complexity of treatment plan. High risk meds: Dilaudid IV Dispo: Inpt rehab per PT/UR/SW Pain Evaluation: Adequate Pain Control GI Prophylaxis: Proton Pump Inhibitor VTE Prophylaxis: Sub-Q Heparin (Unfractionated) VTE Mechanical Devices: Intermittant Pneumatic CD Resuscitation Status: CPR: Attempt Resuscitation Time spent 30 minutes Spring Schulte DO Nov 13, 2016 07:51
[2016-11-13] MEDS: Tetrahydrozoline 0.05% 15 mL Ophthalmic Solution BOTH_EYES PRN (22:26)
[2016-11-14] VITALS (10 sets, daily range): BP systolic 150–182; BP diastolic 76–92; PULSE 59–85; RESP 18–22; O2SAT 92–95
--- NOTE | 2016-11-14 01:54 | NUR ---
anxiety / sleep patient anxious. asks multiple times "when am i going to the rehab facility?" reassured that when the time came to go he would be notified. reoriented to time and place. helped patient with urinal, unable to void . reassured. patient is i
[2016-11-14] MEDS: Albuterol-Ipratropium 3 mL Inhalation Solution NEB SCH ×4 (08:08→21:55)
[2016-11-14] MEDS: 0.9% Sodium Chloride 1,000 ML IV SCH ×2 (10:05→20:48)
[2016-11-14] MEDS: Heparin 5,000 Unit/mL Inj SUBQ SCH ×2 (10:05→16:41)
[2016-11-14] MEDS: Insulin LISPRO 300 Unit/3 mL Inj SUBQ SCH ×4 (10:06→21:02)
--- NOTE | 2016-11-14 14:59 | NUR ---
NUTRITION FOLLOW-UP: ASSESS: 76 YO male admitted for stroke. Pt has been NPO/stimulation diet x 5 days. Pt has consented for a PEG, but this will be 4-5 more days before it can be placed due to pt needing to be off Plavix. PMHx: CAD, DM LABS: Reviewed. Na 145, Glu 133. MEDS: Reviewed. GI: BM x 1 (11/14) CURRENT WT: 132.2 kg. IBW: 78.2 kg. Adj BW: 91.7 kg. DIET: Stimulation diet. PO 50-100%. EST. NEEDS: 0866-4679 kcals (25-30 kcals/kg Adj. BW), 110-140 g protein (1.2-1.5 g/kg Adj. BW) NUTRITION DIAGNOSIS: 1.) Chewing / Swallowing difficulties related to motor causes (stroke) as evidenced by current NPO diet status x 2 days, ST following--PERSISTS. 2.) Inadequate oral intake related to inability to consume sufficient energy as evidenced by NPO/stimulation diet x 5 days--PERSISTS. NUTRITION INTERVENTION: 1.) Continue to advance diet as able per ST recommendations. 2.) Recommend NG tube placement, if possible, in order to initiate TF while waiting for PEG tube to be placed. Recommend Glucerna 1.5 starting at 10 mL/hr and advancing by 10 ml every 6 hours as tolerated to goal rate of 60 mL/hr to provide 2070 kcals and 114 g protein per day (goal rate will need to be adjusted based off of po intake). Additional kcals to meet needs will come from pt eating stimulation diet. Recommend H2O flush dose of 30 ml every 4 hours while pt is on IV fluids. Once IV fluids are stopped, recommend flush dose of 50 mL every 1 hours to provide a total of 2247 ML free H2O per day from TF and flushes. MONITOR / EVAL: Diet advancement / tolerance, initiation of nutrition support, labs, nutritional status. Follow per high nutritional risk guidelines.
--- NOTE | 2016-11-14 15:06 | NUR ---
AM meds AM meds given late today d/t pt sleeping. Per NOC report, pt didn't sleep last night. Pt tolerated meds crushed in apple sauce. UP in bed for meals. 2 PA max assist.
[2016-11-14] MEDS: Insulin GLARgine 100 Unit/mL Syringe SUBQ SCH (21:00)
--- NOTE | 2016-11-14 22:02 | PCM.PNMED ---
Subjective Date of Service Nov 14, 2016 Subjective Patient is seen and examined, once with the group rounding, and then again by myself. His niece is present in the morning. Discussed diagnosis, workup, imaging, and treatment plan with patient and family. They expressed an verbalized their understanding. Exam Vital Signs Vital Sign - Last Date Time Temp Pulse Resp B/P Pulse Ox O2 Delivery O2 Flow Rate FiO2 11/14/16 21:57 60 19 93 Room Air 11/14/16 20:31 37.3 155/76 2.00 11/12/16 20:21 21 Intake and Output 11/13/16 11/13/16 11/14/16 Cumulative From/Thru 15:00 23:00 07:00 11/09/16 12:55 - 11/14/16 06:11 Intake Total 1601 ml 1000 ml 8385 ml Output Total 369 ml 780 ml 5254 ml Balance 1232 ml 220 ml 3131 ml Intake Oral 120 ml 0 ml 120 ml IV Total 1481 ml 1000 ml 8265 ml Output Urine Total 369 ml 780 ml 5254 ml # Voids 3 # Bowel Movements 1 1 2 Exam General: Alert and oriented HEENT: conjunctival erythema is noted HEart: RRR, no s3/s4 Lungs: CTA no crackles/wheezes Abd: Soft, non distended Ext: No edema Neuro: decreased left shoulder, arm and leg strength. Improved left extremity range of motion, improved facial droop. OTher CN are intact Psychiatric: Affect is pleasant, more is cooperative and hopeful Lab and Diagnostics Result Diagram: 11/12/16 0550 11/13/16 0830 X-Rays, CTs and MRIs 11/09/16 MRI BRAIN WITH AND WITHOUT CONTRAST Brain: Scant [id number] midline shift. No intracranial bleeds or masses. No abnormal intracranial enhancement. The brainstem appears normal. Diffusion- weighted images demonstrate definite acute ischemic insults involving the right middle cerebral artery vascular distribution and extending into the basal ganglia on the right, with largest measurements of the area of subacute stroke currently measuring up to 7.2 cm AP and 3.8 cm transverse with a craniocaudad extent of approximately 3.9 cm. Subtle flow abnormalities are present on T2 and postcontrast T1 imaging in the area of thrombus present at the junction of the M1 and M2 segments right middle cerebral artery. Several additional punctate foci of infarction are present involving the anterior tip of the right temporal lobe and also the temporal occipital junction on the right. No chronic ischemic insults. Normal intravascular flow voids are present. IMPRESSION: Moderately large right middle cerebral artery vascular distribution with early mild to moderate mass effect, causing only slight right- to-left deviation of the midline structures, without associated hemorrhage. As discussed above and previously during CT angiographic report there is a thrombus that currently is likely partially obstructing the junction of the right middle cerebral artery M1-M2 junction. A portion of this thrombus is involving the lenticulostriate origins on the right is the presumed explanation for the basal ganglia contiguous infarction in that area and embolic etiology is the likely cause given the presence of several additional punctate foci of subacute ischemic injury involving the anterior and posterior margins of the right temporal lobe Chest Xray Interpretation: IMPRESSION: 1. Focal opacity in the periphery of the left midlung suspicious for pulmonary contusion. 2. Left seventh and eighth rib fractures. Dictated by: Cindi Red MD, PhD on 11/09/2016 at 13:28 Approved by: Cindi Red MD, PhD on 11/09/2016 at 13:30 View: Portable, 1 view Interpretation / Wet Read by: Interpret - Radiologist CT ANGIO HEAD AND NECK: IMPRESSION: 1. Subtle loss of morrow-white matter change involving the right basal ganglia suspicious for acute infarct. 2. No intracranial hemorrhage. 3. Absence of flow in the distal M1 segment and the proximal M2 segments of the right middle cerebral artery compatible presence of thrombus. 4. 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 5. High-grade, proximally 70-80% stenosis of the origin the left internal carotid artery. 6. Moderate stenosis of the origins of the vertebral arteries. 7. Image quality severely degraded by patient motion artifact. 8. Findings telephoned to Dr. Suleman Pedroza on 11/09/2016 at 1557 hrs. 12-lead ECG ECG Interpretation: sinus rate 70 non specific intraventricular conduction delay poor baseline quality multiple PVC's no obvious ST elevation no prior for comparison Time: 12:55 Interpreted by: ED physician Assessment & Plan Patient is a 76 year old male with a history of CAD and DM who presents to the ED via EMS complaining of L sided paralysis upon waking this morning with CTA- finding of Acute infarct Right Basal Ganglia right middle cerebral artery compatible presence of thrombus. Moderately Large Right MCA Ischemic Infarct involving Basal Ganglia, acute, active- p/w Left sided hemiparesis. MRI Brain- shows early mild to moderate mass effect. Per MRI/CTA- Thrombus that likely partially obstructing the junction of the right MCA at M1-M2 junction. Presented outside of tPA window. ED called [facility], not a candidate for clot retrieval. Etiology likely Atrial Fibrillation. Allowed permissive HTN first 48 hrs, cardiac monitoring. 11/10-Echo- EF 60-65%, atria are not well visualized but grossly appear normal in size. - Lipid Panel- uremarkable. - Cardiac Monitoring for possible A-Fib. - Consulted Neuro- Dr. Chand. Her initial Recs- med management w/ dual anti- platelet therapy. ASA/Plavix for 90 days. High dose Atorvastatin. PT/OT/[employer]. - Added [place] ASA prn if can't take PO Meds. - PT recs Inpt rehab. Speech advanced his diet on 11/12 to stim diet, still no liquids, started IVF - Can follow up with Dr. Chand in 2-3 weeks. -- Per speech therapy, patient is still unable to handle thin liquids are thickened liquids. Consent is obtained from patient for PEG tube placement -- 11/13 discussed PEG tube placement with GI, they want him off of Plavix for 5 days for the procedure, held Plavix on 11/14 Obstructive sleep apnea, chronic present on admission -- Patient continues to need 2-4 L of oxygen via nasal cannula -- ABG today did not show any concern for respiratory depression -- Appears that he is not taking deep breaths, encourage incentive spirometry -- Consider pulmonology consult Allergic Conjunctivitis acute -- Artifical tears ordred -- No pataday or azalastine on formulary. Visine . Eyedrops are ordered. -- Patient was sleepy during my second visit, we will try an eye exam in the a.m. Cerebral edema, acute, present on admission improving -- Stroke/CVA treatment as above Mild to Moderate mass effect due to R MCA Infarct- acute, active. Pt is Hemodynamically stable. Neuro exam unchanged since admit. - For reference; Baseline Neuro Exam as of 11/10- Alert and Oriented x 3. Moderate slurred speech. R Facial Droop, Left Hemiparesis. No R sided deficits at all. Sensation intact bilaterally. - frequent q4h Neuro checks, consider upgrade to ICU if more frequent neuro checks or change in mental status. - Per Dr. Davidson"Discussed case with Neuro-Dr. Chand. No Decadron. Get Stat CT Head for any significant change in Neuro exam or if becomes hemodynamically unstable. If mass effect worsens would need urgent transfer to [facility] for possible craniotomy. " B/L Carotid Artery Stenosis- poa, active. Per CT- High-grade, 90% to near- complete occlusion of the origin of the right ICA. High-grade, proximally 70-80 % stenosis of the origin the L ICA. - 11/11- spoke with [facility]. They would want to wait 2-3 weeks until CVA stable before performing Carotid Endarterectomy. Instructed to schedule a follow up at [facility]. Agree with dual antiplatelet therapy. hx of Ground Level Fall, acute, active. Occurred 2 months ago per pt. sustained Left seventh and eighth rib fractures per CXR. Left Pulmonary Contusion. Morphine for pain CAD s/p CABG-chronic c/w ASA. Allow for permissive HTN, BP has been low off all HTN Meds. Will hold Metoprolol and resume at low dose once BP allows. DM-chronic - SSI, fingersticks. - Held hm Lantus 40u given low blood sugars. Patient has not been needing correction as he is also not eating much -Hold Metformin. - Hba1c of 6.7 Chronic hypertension ongoing -- Restart patient's metoprolol on 11/13 -- Restart lisinopril home med full dose 11/14 -- continue to monitor Morbid obesity, chronic -- Code-Full Status- Patient is admitted under inpatient status expected length of stay greater than 2 midnights due to severity of presenting symptoms, risk of adverse events, and complexity of treatment plan. Dispo: Inpt rehab per PT/UR/SW Pain Evaluation: Adequate Pain Control GI Prophylaxis: Proton Pump Inhibitor VTE Prophylaxis: Sub-Q Heparin (Unfractionated) VTE Mechanical Devices: Intermittant Pneumatic CD Resuscitation Status: CPR: Attempt Resuscitation Time spent 35 min Spring Schulte DO Nov 14, 2016 22:02
--- NOTE | 2016-11-14 22:50 | NUR ---
Skin P : Pt is incontinent of stool and urine. Pt is able to report when he soils his brief I: Pt encouraged to communicate with nursing staff re his brief condition E: Pt using call light consistently for brief changes.
[2016-11-14] MEDS: Tetrahydrozoline 0.05% 15 mL Ophthalmic Solution BOTH_EYES PRN (23:59)
[2016-11-15] VITALS (7 sets, daily range): BP systolic 135–183; BP diastolic 87–91; PULSE 57–79; RESP 19–22; O2SAT 92–99
[2016-11-15] MEDS: Heparin 5,000 Unit/mL Inj SUBQ SCH ×3 (00:47→16:33)
--- NOTE | 2016-11-15 00:49 | NUR ---
P: Pt repeatedly requests urinal to "pee" without any output. I: Bladder scan showed no urin in bladder. He remains incontinent of urin E: Will cont to monitor
[2016-11-15] MEDS: Albuterol-Ipratropium 3 mL Inhalation Solution NEB SCH ×4 (04:22→20:06)
[2016-11-15] MEDS: 0.9% Sodium Chloride 1,000 ML IV SCH ×2 (05:52→16:32)
[2016-11-15] MEDS: Insulin LISPRO 300 Unit/3 mL Inj SUBQ SCH ×4 (08:00→22:00)
--- NOTE | 2016-11-15 09:38 | NUR ---
Spoke with RN about diet clarification. Patient on stimulation/pureed only. No liquids. Diet clarify today.
--- NOTE | 2016-11-15 10:51 | NUR ---
NUTRITION FOLLOW-UP: ASSESS: 76 YO male admitted for stroke. Pt has been NPO/stimulation diet x 6 days, discussed with MD at bedside MD melani agrees pt to begin on NG feedings until PEG tube placed to better meet pt needs prior to surgery. Pt has consented for a PEG, but this will be 4 more days before it can be placed due to pt needing to be off Plavix. PMHx: CAD, DM LABS: Reviewed. Na 145, Glu 133. MEDS: Reviewed. GI: BM x 1 (11/14) CURRENT WT: 132.2 kg. IBW: 78.2 kg. Adj BW: 91.7 kg. DIET: Stimulation diet. PO 50-100%. EST. NEEDS: 6552-5989 kcals (25-30 kcals/kg Adj. BW), 110-140 g protein (1.2-1.5 g/kg Adj. BW) NUTRITION DIAGNOSIS: 1.) Chewing / Swallowing difficulties related to motor causes (stroke) as evidenced by current NPO diet status x 2 days, ST following--PERSISTS. 2.) Inadequate oral intake related to inability to consume sufficient energy as evidenced by NPO/stimulation diet x 5 days--PERSISTS. NUTRITION INTERVENTION: 1.) Tube feeding orders placed in chart as follows: Glucerna 1.5 starting at 10 mL/hr and advancing by 10 ml every 6 hours as tolerated to goal rate of 60 mL/hr to provide 2070 kcals and 114 g protein per day (goal rate will need to be adjusted based off of po intake). Additional kcals to meet needs will come from pt eating stimulation diet. Recommend H2O flush dose of 30 ml every 4 hours while pt is on IV fluids. Once IV fluids are stopped, recommend flush dose of 50 mL every 1 hours to provide a total of 2247 ML free H2O per day from TF and flushes. MONITOR / EVAL: TF initiation/tolerance, labs, . Follow per high nutritional risk guidelines.
--- NOTE | 2016-11-15 13:11 | DRSVH ---
PROCEDURE: X-RAY CHEST ONE VIEW, PORTABLE ([id number]) INDICATIONS: to check ng tube placement TECHNIQUE: One view of the chest was acquired. COMPARISON: [facility], [facility], XR CHEST 1VW (PORTABLE), 11/11/2016, 18:11. FINDINGS: Surgical changes and devices: Median sternotomy wires. NG tube is looped in the esophagus and does no t appear to cross the gastroesophageal junction. Lungs and pleura: No pleural effusions or pneumothorax. Patchy opacities in the lung bases noted whi ch could represent atelectasis or developing pneumonia. Mediastinum: Mediastinal contours appear normal. Heart size is normal. Bones and chest wall: No suspicious bony lesions. Overlying soft tissues appear unremarkable. IMPRESSION: 1. NG tube is looped in the esophagus and does not project across the GE junction. 2. Increased opacification in the lung bases compatible with atelectasis versus developing pneumonia. Please correlate with clinical and laboratory data. Dictated by: Cindi Red MD, PhD on 11/15/2016 at 12:07 Approved by: Cindi Red MD, PhD on 11/15/2016 at 12:09
[2016-11-15] MEDS: Artificial Tears 15 mL Ophthalmic Solution BOTH_EYES PRN (16:33)
--- NOTE | 2016-11-15 17:13 | NUR ---
NG TUBE: Patient has NG TUBE ordered for tube feedings per MD. The NG Tube was placed by nursing staff member from [facility]. Patient Tolerated the procedure but did have some nose bleeding after inserting the tube. Inserted large syringe with 10cc of air into the NG tube. The air was pushed into the tube and unable to hear the tobin of air into the patients stomach. Portable chest xray was done and it showed that the NG tube was not in the patients abdomen. The tube was coiled up into patients esophagus area. The NG tube was removed. Per MD try placing the NG tube later after patient rests. Patinet was having a nose bleed from the procedure. Will pass this infomation on to the oncoming shift to have the tube placed. Patient continues on IV fluids and a Stim diet .
[2016-11-15] MEDS: Insulin GLARgine 100 Unit/mL Syringe SUBQ SCH (21:00)
[2016-11-15] MEDS ORDERED: D5 0.45% NaCl + KCl 20 mEq/L 1,000 ML IV SCH ×2 (21:05→21:15)
[2016-11-15] MEDS ORDERED: 0.9% Sodium Chloride 1,000 ML IV ONE (21:15)
--- NOTE | 2016-11-15 21:18 | PCM.PNMED ---
Subjective Date of Service Nov 15, 2016 Subjective Patient is seen and examined. He was noted to be asking the staff to get him water to drink and coffee. I have discussed this with him and asked him to refrain from drinking thin liquids until he is cleared. He verbalized his understanding. He agreed to get a NG tube placed as dietary express concern that stimulation diet does not provide him with enough calories. Has been off of Plavix for 2 days now Exam Vital Signs Vital Sign - Last Date Time Temp Pulse Resp B/P Pulse Ox O2 Delivery O2 Flow Rate FiO2 11/15/16 20:52 36.9 73 20 183/91 93 Nasal Cannula 2.00 11/12/16 20:21 21 Intake and Output 11/14/16 11/14/16 11/15/16 Cumulative From/Thru 15:00 23:00 07:00 11/09/16 12:55 - 11/15/16 06:32 Intake Total 2113 ml 800 ml 02613 ml Output Total 270 ml 3 ml 435 ml 5962 ml Balance -270 ml 2110 ml 365 ml 5336 ml Intake Oral 0 ml 0 ml 120 ml IV Total 2113 ml 800 ml 66944 ml Output Urine Total 270 ml 3 ml 435 ml 5962 ml # Voids 3 # Bowel Movements 2 0 4 Exam Gen.: No acute distress, no change in mentation HEENT: Impressive conjunctival erythema, hypertrophic blood vessels in right eye , ptergyum in left eye, no drainage, scratchy sensation Heart: Regular rate and rhythm no S3-S4 sounds Lungs: Clear to auscultation anteriorly Abdomen: Nontender nondistended soft Extremities: No 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 Symmetric facial strength, continued facial droop Neurological: No specific changes from yesterday Lab and Diagnostics Result Diagram: 11/12/16 0550 11/13/16 0830 X-Rays, CTs and MRIs 11/09/16 MRI BRAIN WITH AND WITHOUT CONTRAST Brain: Scant [id number] midline shift. No intracranial bleeds or masses. No abnormal intracranial enhancement. The brainstem appears normal. Diffusion- weighted images demonstrate definite acute ischemic insults involving the right middle cerebral artery vascular distribution and extending into the basal ganglia on the right, with largest measurements of the area of subacute stroke currently measuring up to 7.2 cm AP and 3.8 cm transverse with a craniocaudad extent of approximately 3.9 cm. Subtle flow abnormalities are present on T2 and postcontrast T1 imaging in the area of thrombus present at the junction of the M1 and M2 segments right middle cerebral artery. Several additional punctate foci of infarction are present involving the anterior tip of the right temporal lobe and also the temporal occipital junction on the right. No chronic ischemic insults. Normal intravascular flow voids are present. IMPRESSION: Moderately large right middle cerebral artery vascular distribution with early mild to moderate mass effect, causing only slight right- to-left deviation of the midline structures, without associated hemorrhage. As discussed above and previously during CT angiographic report there is a thrombus that currently is likely partially obstructing the junction of the right middle cerebral artery M1-M2 junction. A portion of this thrombus is involving the lenticulostriate origins on the right is the presumed explanation for the basal ganglia contiguous infarction in that area and embolic etiology is the likely cause given the presence of several additional punctate foci of subacute ischemic injury involving the anterior and posterior margins of the right temporal lobe Chest Xray Interpretation: IMPRESSION: 1. Focal opacity in the periphery of the left midlung suspicious for pulmonary contusion. 2. Left seventh and eighth rib fractures. Dictated by: Cindi Red MD, PhD on 11/09/2016 at 13:28 Approved by: Cindi Red MD, PhD on 11/09/2016 at 13:30 View: Portable, 1 view Interpretation / Wet Read by: Interpret - Radiologist CT ANGIO HEAD AND NECK: IMPRESSION: 1. Subtle loss of morrow-white matter change involving the right basal ganglia suspicious for acute infarct. 2. No intracranial hemorrhage. 3. Absence of flow in the distal M1 segment and the proximal M2 segments of the right middle cerebral artery compatible presence of thrombus. 4. 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 5. High-grade, proximally 70-80% stenosis of the origin the left internal carotid artery. 6. Moderate stenosis of the origins of the vertebral arteries. 7. Image quality severely degraded by patient motion artifact. 8. Findings telephoned to Dr. Suleman Pedroza on 11/09/2016 at 1557 hrs. 12-lead ECG ECG Interpretation: sinus rate 70 non specific intraventricular conduction delay poor baseline quality multiple PVC's no obvious ST elevation no prior for comparison Time: 12:55 Interpreted by: ED physician Assessment & Plan Patient is a 76 year old male with a history of CAD and DM who presents to the ED via EMS complaining of L sided paralysis upon waking this morning with CTA- finding of Acute infarct Right Basal Ganglia right middle cerebral artery compatible presence of thrombus. Moderately Large Right MCA Ischemic Infarct involving Basal Ganglia, acute, active- p/w Left sided hemiparesis. MRI Brain- shows early mild to moderate mass effect. Per MRI/CTA- Thrombus that likely partially obstructing the junction of the right MCA at M1-M2 junction. Presented outside of tPA window. ED called [facility], not a candidate for clot retrieval. Etiology likely Atrial Fibrillation. Allowed permissive HTN first 48 hrs, cardiac monitoring. 11/10-Echo- EF 60-65%, atria are not well visualized but grossly appear normal in size. - Lipid Panel- uremarkable. - Cardiac Monitoring for possible A-Fib. - Consulted Neuro- Dr. Chand. Her initial Recs- med management w/ dual anti- platelet therapy. ASA/Plavix for 90 days. High dose Atorvastatin. PT/OT/[employer]. - Added [place] ASA prn if can't take PO Meds. - PT recs Inpt rehab. Speech advanced his diet on 11/12 to stim diet, still no liquids, started IVF - Can follow up with Dr. Chand in 2-3 weeks. -- Per speech therapy, patient is still unable to handle thin liquids are thickened liquids. Consent is obtained from patient for PEG tube placement -- 11/13 discussed PEG tube placement with GI, they want him off of Plavix for 5 days for the procedure, held Plavix on 11/14 -- 11/15 patient is agreeable to NG tube placement for temporary feeding as stimulation diet would not provide enough calories per dietary. Staff tried to place an NG tube but it got coiled in his esophagus/stomach. He has also experienced some minor trauma from the NG tube. -- We will attempt to place NG tube again in the a.m. -- Change patient's fluids to D5 half with potassium at 130 cc/hr Obstructive sleep apnea, chronic present on admission -- Patient continues to need 2-4 L of oxygen via nasal cannula -- ABG today did not show any concern for respiratory depression -- Appears that he is not taking deep breaths, encourage incentive spirometry -- Consider pulmonology consult Allergic Conjunctivitis acute -- Artifical tears ordred -- No pataday or azalastine on formulary. Visine . Eyedrops are ordered. -- On closer examination, blood vessels and patients eyes (especially the right one) appear to be enlarged, left eye has pterygium -- We will consider ophthalmology consult Cerebral edema, acute, present on admission improving -- Stroke/CVA treatment as above Mild to Moderate mass effect due to R MCA Infarct- acute, active. Pt is Hemodynamically stable. Neuro exam unchanged since admit. - For reference; Baseline Neuro Exam as of 11/10- Alert and Oriented x 3. Moderate slurred speech. R Facial Droop, Left Hemiparesis. No R sided deficits at all. Sensation intact bilaterally. - frequent q4h Neuro checks, consider upgrade to ICU if more frequent neuro checks or change in mental status. - Per Dr. Davidson"Discussed case with Neuro-Dr. Chand. No Decadron. Get Stat CT Head for any significant change in Neuro exam or if becomes hemodynamically unstable. If mass effect worsens would need urgent transfer to [facility] for possible craniotomy. " B/L Carotid Artery Stenosis- poa, active. Per CT- High-grade, 90% to near- complete occlusion of the origin of the right ICA. High-grade, proximally 70-80 % stenosis of the origin the L ICA. - 11/11- spoke with [facility]. They would want to wait 2-3 weeks until CVA stable before performing Carotid Endarterectomy. Instructed to schedule a follow up at [facility]. Agree with dual antiplatelet therapy. -- We will discuss with [facility] if he could be set up for carotid endarterectomy there in stead of [facility] in the am hx of Ground Level Fall, acute, active. Occurred 2 months ago per pt. sustained Left seventh and eighth rib fractures per CXR. Left Pulmonary Contusion. -- Continue to monitor CAD s/p CABG-chronic c/w ASA. Allow for permissive HTN, BP has been low off all HTN Meds. Will hold Metoprolol and resume at low dose once BP allows. DM-chronic - SSI, fingersticks. - Held hm Lantus 40u given low blood sugars. Patient has not been needing correction as he is also not eating much -Hold Metformin. - Hba1c of 6.7 Chronic hypertension ongoing -- Restart patient's metoprolol on 11/13 -- Restart lisinopril home med full dose 11/14 -- Added amlodipine 2.5 mg on 11/15 -- continue to monitor Morbid obesity, chronic Code-Full Status- Patient is admitted under inpatient status expected length of stay greater than 2 midnights due to severity of presenting symptoms, risk of adverse events, and complexity of treatment plan. Dispo: Inpt rehab per PT/UR/SW GI Prophylaxis: Proton Pump Inhibitor VTE Prophylaxis: Sub-Q Heparin (Unfractionated) VTE Mechanical Devices: Intermittant Pneumatic CD Resuscitation Status: CPR: Attempt Resuscitation Time spent 30 minutes Spring Schulte DO Nov 15, 2016 21:18
--- NOTE | 2016-11-15 21:37 | DRSVH ---
PROCEDURE: X-RAY CHEST ONE VIEW, PORTABLE ([id number]) INDICATIONS: check NG placement TECHNIQUE: One view of the chest was acquired. COMPARISON: None. FINDINGS: Surgical changes and devices: Sternal wires are present. Nasogastric tube is present with the distal tip approximate 5 cm below the hemidiaphragm. Lungs and pleura: No pleural effusions or pneumothorax. Patchy bibasilar opacities are noted. Mediastinum: Mediastinal contours appear normal. Heart size is normal. Bones and chest wall: No suspicious bony lesions. Overlying soft tissues appear unremarkable. IMPRESSION: Nasogastric tube approximately 5 cm below the hemidiaphragm. Position is considered borde rline and more forward advancement is recommended. Dictated by: Radha Stokes M.D. on 11/15/2016 at 21:35 Approved by: Radha Stokes M.D. on 11/15/2016 at 21:36
--- NOTE | 2016-11-15 22:14 | NUR ---
NG NG placed to right nare at 2030.Pt tolerated procedure CXRAY confirmed placement but stated that the NG needed to be advanced. NG advanced 10cm Second CXRAY ordered to confirm adequate placement prior to giving meds or starting tube feeds
--- NOTE | 2016-11-15 22:16 | NUR ---
Resp NS bolus started per MD orders. Breathing prior to bolus start is mildly labored. RR 28. Lungs are clear to decreased. Very mild upper airway wheeze. 94% on 2LNC. Pt denies feeling SOB Will cont to monitor lungs during and after NS bolus.
[2016-11-16] VITALS (10 sets, daily range): BP systolic 169–213; BP diastolic 77–99; PULSE 60–77; RESP 18–26; O2SAT 92–97
--- NOTE | 2016-11-16 00:23 | DRSVH ---
PROCEDURE: X-RAY CHEST ONE VIEW, PORTABLE ([id number]) INDICATIONS: NG PLACEMENT ADJUSTMENT TECHNIQUE: One view of the chest was acquired. COMPARISON: None. FINDINGS: Surgical changes and devices: Nasogastric tube is present with distal tip projecting below the left h emidiaphragm. Sternal wires. Lungs and pleura: No pleural effusions or pneumothorax. Bibasilar opacities are present. Mediastinum: Mediastinal contours appear normal. Heart size is normal. Bones and chest wall: No suspicious bony lesions. Overlying soft tissues appear unremarkable. IMPRESSION: Nasogastric tube is in appropriate position. Bibasilar opacities are again noted. Dictated by: Radha Stokes M.D. on 11/16/2016 at 0:20 Approved by: Radha Stokes M.D. on 11/16/2016 at 0:21
[2016-11-16] MEDS: Heparin 5,000 Unit/mL Inj SUBQ SCH ×3 (00:32→16:30)
--- NOTE | 2016-11-16 01:48 | NUR ---
Nutrition Tube feed of Glucema 1.5 started at 10cc/hr with 30cc water flush q 4 hrs HOB at 30 degrees. Pt understands reason for tube feeds and tolerates start of nutrition therapy
--- NOTE | 2016-11-16 02:00 | NUR ---
Resp P: Pt has labored breathing. RR 28. Wheezes pronounced. Some crackles noted. Pt states, "I feel fine" I: Reported to MD pt's recent intake and output and current resp. status. RT here giving pt a neb E: Awaiting MD callback/orders. Will reassess lung sounds following neb
[2016-11-16] MEDS: Tetrahydrozoline 0.05% 15 mL Ophthalmic Solution BOTH_EYES PRN ×2 (03:11→08:53)
--- NOTE | 2016-11-16 05:51 | NUR ---
GI P: Pt requests bedpan. I: Liq brown stool. Moderate amount. Pericare completed. Small amt of redness from kiser noted. E: Pt appears more comfortable. WIll cont to monitor
--- NOTE | 2016-11-16 06:01 | NUR ---
Tube feed Tube feed residual less than 30cc after turning off x 30 min INcreased feed rate to 20cc/hr. Will cont to monitor Addendum: 11/16/16 at 0610 by BELLA SPAULDING RN Tube feed returned to 10cc an hour. NOt to be turned up till 0800 after checking residual
--- NOTE | 2016-11-16 06:20 | NUR ---
Resp Pt asleep. Desats to upper 80s on pulse oximetry on 2 literes= He normally wears a cpap with 4L bleed at nigt. Increased to 4L nasal canula due to high risk sleep apnea. WIll cont to monitor
[2016-11-16] MEDS: Albuterol-Ipratropium 3 mL Inhalation Solution NEB SCH ×4 (07:52→21:04)
[2016-11-16] MEDS: Insulin LISPRO 300 Unit/3 mL Inj SUBQ SCH ×4 (08:00→22:00)
[2016-11-16] MEDS ORDERED: Furosemide 10 mg/mL 2 mL Inj IVPUSH ONE (08:00)
[2016-11-16 14:52] LABS: Phosphorus 3.5 mg/dL (2.5-4.9)
--- NOTE | 2016-11-16 15:03 | NUR ---
NUTRITION FOLLOW-UP: ASSESS:76 YO male admitted with stroke. Pt has been NPO/stimulation diet x 7 days. NG tube placed 11/15. Enteral feeding rate currently 20 mL/hr, advancing to goal 60 mL/hr. I requested mg and phos from Dr. Schulte; both returned WNL. Pt has consented for a PEG, but this will be 4 more days before it can be placed due to pt needing to be off Plavix. PMHx: CAD, DM. LABS: Reviewed. Na 145, CO2 30, Cr 0.70, Glu 135, Alb 3.6. MEDS:Reviewed. GI: BM x 2 today. CURRENT WT: 132.2 kg, BMI 40.0 kg/m2. Admit weight: 132.2 kg. IBW: 78.2 kg. Adj BW: 91.7 kg. DIET: Stimulation diet. PO 75 -100%. ENTERAL FEEDING: Glucerna 1.5 rate currently 15 mL/hr and advancing by 10 ml every 6 hours as tolerated to goal rate of 60 mL/hr to provide 2070 kcals and 114 g protein per day (goal rate will need to be adjusted based off of po intake). Additional kcals to meet needs will come from pt eating stimulation diet. Recommend H2O flush dose of 30 ml every 4 hours while pt is on IV fluids. Once IV fluids are stopped, recommend flush dose of 50 mL every 1 hours to provide a total of 2247 ML free H2O per day from TF and flushes EST. NEEDS: 0789-2855 kcals (25-30 kcals/kg Adj. BW), 110-140 g protein (1.2-1.5 g/kg Adj. BW) NUTRITION DIAGNOSIS: 1) Chewing / Swallowing difficulties related to motor causes (stroke) as evidenced by inability to tolerate diet beyond stimulation texture. ST following - PERSISTS. 2) Inadequate oral intake related to inability to consume sufficient energy as evidenced by NPO/stimulation diet x 7 days - PERSISTS. NUTRITION INTERVENTION: 1) No additional intervention at this time. MONITOR / EVAL: Enteral feeding advance / tolerance, labs. Follow per high nutritional risk guidelines.
--- NOTE | 2016-11-16 17:54 | NUR ---
Activity: Patient requires 2 person heavy turn q 2 hours while in bed. Patient received santosh care after each incontinent episode. He continues to be on NG tube feeding of Glycema which is now running at 30ml/hr and patient is tolerating the feeding without issues. Patient received 20mg of IV Lasix per MD order for his SOB. Patient has had good urinary output and his breathing has improved . His 02 sat is in the 90s on 2 liters while he is sleeping. When he is awake he is on RA . PRN NEB txs help patients breathing as well. Patient is coughing up scant amounts of rodriguez creamy pink tinged sputum occasionally and he uses the mouth suction for his secretions.
--- NOTE | 2016-11-16 20:24 | PCM.PNMED ---
Subjective Date of Service Nov 16, 2016 Subjective Patient is seen twice. The first time patient was seen with the group rounding , patient's niece's was present in the room and was updated. Second visit patient's niece, and her were present. Once again there were updated again. Patient is alert and awake the first time. It is usual for him to be sleepy later tin the evening. he continues to fall asleep without wearing his CPAP. When this happens, he usually wears just oxygen and desaturates.. Lasix 20 mg was administered this am due to dyspnea and concern for fluids but later a CXR showed no concern for volume over load.. Exam Vital Signs Vital Sign - Last Date Time Temp Pulse Resp B/P Pulse Ox O2 Delivery O2 Flow Rate FiO2 11/16/16 20:04 Supplement Oxygen 11/16/16 15:39 2.00 11/16/16 15:30 77 20 93 11/16/16 13:38 37.0 169/77 11/12/16 20:21 21 Intake and Output 11/15/16 11/15/16 11/16/16 Cumulative From/Thru 15:00 23:00 07:00 11/09/16 12:55 - 11/16/16 06:37 Intake Total 950 ml 2067 ml 18131 ml Output Total 416 ml 6378 ml Balance 950 ml 1651 ml 7937 ml Intake Oral 0 ml 120 ml IV Total 950 ml 2000 ml 61655 ml Tube Feeding 37 ml 37 ml Tube Irrigant 30 ml 30 ml Output Urine Total 416 ml 6378 ml # Voids 3 # Bowel Movements 2 6 Exam General: Sleeping with oxygen on, not wearing cpap HEENT: NCAT Heart: RRR, no s3/s4 Lungs: Clean anteriorly Abd: Soft, non-tender, normal bowel sounds Musculoskeletal: No change in lower/upper extremity range of motion Neurological: more alert in the am, he tends to be sleepy in the evenings IVs and Medications IV Fluids None Medications Reviewed: Medications were reviewed in detail Lab and Diagnostics Result Diagram: 11/12/16 0550 11/16/16 0547 X-Rays, CTs and MRIs 11/09/16 MRI BRAIN WITH AND WITHOUT CONTRAST Brain: Scant [id number] midline shift. No intracranial bleeds or masses. No abnormal intracranial enhancement. The brainstem appears normal. Diffusion- weighted images demonstrate definite acute ischemic insults involving the right middle cerebral artery vascular distribution and extending into the basal ganglia on the right, with largest measurements of the area of subacute stroke currently measuring up to 7.2 cm AP and 3.8 cm transverse with a craniocaudad extent of approximately 3.9 cm. Subtle flow abnormalities are present on T2 and postcontrast T1 imaging in the area of thrombus present at the junction of the M1 and M2 segments right middle cerebral artery. Several additional punctate foci of infarction are present involving the anterior tip of the right temporal lobe and also the temporal occipital junction on the right. No chronic ischemic insults. Normal intravascular flow voids are present. IMPRESSION: Moderately large right middle cerebral artery vascular distribution with early mild to moderate mass effect, causing only slight right- to-left deviation of the midline structures, without associated hemorrhage. As discussed above and previously during CT angiographic report there is a thrombus that currently is likely partially obstructing the junction of the right middle cerebral artery M1-M2 junction. A portion of this thrombus is involving the lenticulostriate origins on the right is the presumed explanation for the basal ganglia contiguous infarction in that area and embolic etiology is the likely cause given the presence of several additional punctate foci of subacute ischemic injury involving the anterior and posterior margins of the right temporal lobe Chest Xray Interpretation: IMPRESSION: 1. Focal opacity in the periphery of the left midlung suspicious for pulmonary contusion. 2. Left seventh and eighth rib fractures. Dictated by: Cindi Red MD, PhD on 11/09/2016 at 13:28 Approved by: Cindi Red MD, PhD on 11/09/2016 at 13:30 View: Portable, 1 view Interpretation / Wet Read by: Interpret - Radiologist CT ANGIO HEAD AND NECK: IMPRESSION: 1. Subtle loss of morrow-white matter change involving the right basal ganglia suspicious for acute infarct. 2. No intracranial hemorrhage. 3. Absence of flow in the distal M1 segment and the proximal M2 segments of the right middle cerebral artery compatible presence of thrombus. 4. 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 5. High-grade, proximally 70-80% stenosis of the origin the left internal carotid artery. 6. Moderate stenosis of the origins of the vertebral arteries. 7. Image quality severely degraded by patient motion artifact. 8. Findings telephoned to Dr. Suleman Pedroza on 11/09/2016 at 1557 hrs. 12-lead ECG ECG Interpretation: sinus rate 70 non specific intraventricular conduction delay poor baseline quality multiple PVC's no obvious ST elevation no prior for comparison Time: 12:55 Interpreted by: ED physician Assessment & Plan Patient is a 76 year old male with a history of CAD and DM who presents to the ED via EMS complaining of L sided paralysis upon waking this morning with CTA- finding of Acute infarct Right Basal Ganglia right middle cerebral artery compatible presence of thrombus. Moderately Large Right MCA Ischemic Infarct involving Basal Ganglia, acute, active- p/w Left sided hemiparesis. MRI Brain- shows early mild to moderate mass effect. Per MRI/CTA- Thrombus that likely partially obstructing the junction of the right MCA at M1-M2 junction. Presented outside of tPA window. ED called [facility], not a candidate for clot retrieval. Etiology likely Atrial Fibrillation. Allowed permissive HTN first 48 hrs, cardiac monitoring. 11/10-Echo- EF 60-65%, atria are not well visualized but grossly appear normal in size. - Lipid Panel- uremarkable. - Cardiac Monitoring for possible A-Fib. - Consulted Neuro- Dr. Chand. Her initial Recs- med management w/ dual anti- platelet therapy. ASA/Plavix for 90 days. High dose Atorvastatin. PT/OT/BUTTER LIQUEFIER. - Added ID ASA prn if can't take PO Meds. - PT recs Inpt rehab. Speech advanced his diet on 11/12 to stim diet, still no liquids, started IVF - Can follow up with Dr. Chand in 2-3 weeks. -- Per speech therapy, patient is still unable to handle thin liquids are thickened liquids. Consent is obtained from patient for PEG tube placement -- 11/13 discussed PEG tube placement with GI, they want him off of Plavix for 5 days for the procedure, held Plavix on 11/14 -- 11/15 patient is agreeable to NG tube placement for temporary feeding as stimulation diet would not provide enough calories per dietary. Staff tried to place an NG tube but it got coiled in his esophagus/stomach. He has also experienced some minor trauma from the NG tube. -- 11/16 NG tube was placed and patient able to tolerate tube feeds Obstructive sleep apnea, chronic present on admission -- Patient continues to need 2-4 L of oxygen via nasal cannula -- ABG today did not show any concern for respiratory depression -- Appears that he is not taking deep breaths, encourage incentive spirometry -- Consider pulmonology consult Allergic Conjunctivitis acute -- Artifical tears ordred -- No pataday or azalastine on formulary. Visine . Eyedrops are ordered. -- On closer examination, blood vessels and patients eyes (especially the right one) appear to be enlarged, left eye has pterygium -- He will need ophthalmology referral Cerebral edema, acute, present on admission improving -- Stroke/CVA treatment as above Mild to Moderate mass effect due to R MCA Infarct- acute, active. Pt is Hemodynamically stable. Neuro exam unchanged since admit. - For reference; Baseline Neuro Exam as of 11/10- Alert and Oriented x 3. Moderate slurred speech. R Facial Droop, Left Hemiparesis. No R sided deficits at all. Sensation intact bilaterally. - frequent q4h Neuro checks, consider upgrade to ICU if more frequent neuro checks or change in mental status. - Per Dr. Davidson"Discussed case with Neuro-Dr. Chand. No Decadron. Get Stat CT Head for any significant change in Neuro exam or if becomes hemodynamically unstable. If mass effect worsens would need urgent transfer to [facility] for possible craniotomy. " B/L Carotid Artery Stenosis- poa, active. Per CT- High-grade, 90% to near- complete occlusion of the origin of the right ICA. High-grade, proximally 70-80 % stenosis of the origin the L ICA. - 11/11- spoke with [facility]. They would want to wait 2-3 weeks until CVA stable before performing Carotid Endarterectomy. Instructed to schedule a follow up at [facility]. Agree with dual antiplatelet therapy. --11/16 I have called [facility] if he could be set up for carotid endarterectomy there in stead of [facility], they declined. In fact it seems that because of his anticipated carotid endarterectomy they do not even want him to be in the rehab rehabilitation until it is all cleared. -- Will address with [facility] in the am hx of Ground Level Fall, acute, active. Occurred 2 months ago per pt. sustained Left seventh and eighth rib fractures per CXR. Left Pulmonary Contusion. -- Continue to monitor CAD s/p CABG-chronic c/w ASA. Allow for permissive HTN, BP has been low off all HTN Meds. Will hold Metoprolol and resume at low dose once BP allows. DM-chronic - SSI, fingersticks. - Held hm Lantus 40u given low blood sugars. Patient has not been needing correction as he is also not eating much -Hold Metformin. - Hba1c of 6.7 Chronic hypertension ongoing -- Restart patient's metoprolol on 11/13 -- Restart lisinopril home med full dose 11/14 -- Added amlodipine 5 mg on 11/16 -- continue to monitor Morbid obesity, chronic ongoing -- Patient is presenting with a challenge to nursing due to large body habitus Code-Full Status- Patient is admitted under inpatient status expected length of stay greater than 2 midnights due to severity of presenting symptoms, risk of adverse events, and complexity of treatment plan. Dispo: Inpt rehab per PT/UR/SW GI Prophylaxis: Proton Pump Inhibitor VTE Prophylaxis: Sub-Q Heparin (Unfractionated) VTE Mechanical Devices: Intermittant Pneumatic CD Resuscitation Status: CPR: Attempt Resuscitation Time spent 45 min Spring Schulte DO Nov 16, 2016 20:24
[2016-11-16] MEDS: Insulin GLARgine 100 Unit/mL Syringe SUBQ SCH (21:15)
[2016-11-17] VITALS (7 sets, daily range): BP systolic 162–208; BP diastolic 74–96; PULSE 63–83; RESP 20–24; O2SAT 91–96
[2016-11-17] MEDS: Heparin 5,000 Unit/mL Inj SUBQ SCH ×3 (02:35→16:11)
[2016-11-17] MEDS: Albuterol-Ipratropium 3 mL Inhalation Solution NEB SCH (07:15)
[2016-11-17] MEDS: Insulin LISPRO 300 Unit/3 mL Inj SUBQ SCH ×4 (08:00→21:57)
[2016-11-17] MEDS ORDERED: Albuterol-Ipratropium 3 mL Inhalation Solution NEB PRN (11:00)
--- NOTE | 2016-11-17 12:18 | PCM.CHPMED ---
Subjective Date of Service: Nov 17, 2016 Primary Physician: Admitting Physician: Sergei Davidson MD Primary Care Physician: Jesica Kirk PA-C Attending Physician: Spring Schulte DO Chief Complaint: Chief Complaint: Patient initially admitted for R MCA CVA Consult for persistent O2 requirements History of Present Illness: 76 y/o M with PMHx CAD (CABG), YOSELYN (home CPAP PS10), Obesity, tobacco use (up to 4ppd [id number]), L rib fx (2/2 fall 2 months ago), admitted after being found down. Initially found to be in AFib. CTA showed right MCA infarct secondary to R MCA thrombus, as well as basal ganglia stroke; mild mass effect. Not a candidate for tpa due to unknown down time. He has left hemiplegia. Echo down was poor study. He has some dysphagia and plans are for PEG this week. He has required 3-4L O2, worse at night when asleep. He has a history of YOSELYN and has been prescribed nocturnal CPAP with PS of 10, however he is not compliant with this. He states he did not require supplemental O2 prior to admission. Currently denies and sob, cough, sputum, chest pain, fever/chills. Per respiratory his pulseox drops to high 80's when asleep. Review of Systems: A 10 point ROS was obtained and negative Constitutional: Denies: Chills, Fever, Malaise, Other, Sweats, Weakness Head: Normal Eyes: Denies: Blurred Vision, Conjunctive Inflammation, Double Vision, Eyelid Inflammation, Other, Pain, Redness, Vision Changes Cardiovascular: Reports: Chest Pain PMH Past Medical History Reviewed as per HPI in H&P Bedside Blood Glucose: 141 Allergies: Coded Allergies: No Known Allergies (Unverified , 11/09/16) Family History Family History Reviewed as per HPI in H&P Social History Hx Alcohol Use: YesHx Substance Use: NoHx Tobacco Use: Yes (smoked up to 4ppd x 40years) Exam Vital Signs Vital Sign - Last Date Time Temp Pulse Resp B/P Pulse Ox O2 Delivery O2 Flow Rate FiO2 11/17/16 09:00 Supplement Oxygen 11/17/16 07:15 75 24 94 3.00 11/17/16 05:56 37.2 179/85 11/12/16 20:21 21 Intake and Output 11/16/16 11/16/16 11/17/16 Cumulative From/Thru 15:00 23:00 07:00 11/09/16 12:55 - 11/17/16 06:13 Intake Total 241 ml 0 ml 25454 ml Output Total 3440 ml 399 ml 79369 ml Balance -3199 ml -399 ml 4339 ml Intake Oral 0 ml 0 ml 120 ml IV Total 19424 ml Tube Feeding 241 ml 278 ml Tube Irrigant 30 ml Output Urine Total 3440 ml 399 ml 79635 ml # Voids 3 # Bowel Movements 1 1 8 General: Alert, Other (Slightly drowsy) Head: Normal Nose: Mucous Membr Moist/Dish Mouth: Mucous Membr Moist/Dish Neck: Supple Chest & Lungs: Diminished breath sounds, Expiratory wheezes, Crackles Cardiovascular: Normal S1, Normal S2 Abdomen: Non-tender, Other (Obese) Musculoskeletal: Normal Range of Motion Extremities: No cyanosis/clubbing/edma bilat Skin: Other (No new rashes) Lab and Diagnostics Result Diagram: 11/12/16 0550 11/16/16 0547 Assessment & Plan Pain Evaluation: Adequate Pain Control GI Prophylaxis: Proton Pump Inhibitor VTE Prophylaxis: Sub-Q Heparin (Unfractionated) VTE Mechanical Devices: Intermittant Pneumatic CD Resuscitation Status: CPR: Attempt Resuscitation Attending Statement T 37.2, BP 179/85, 94% (3L O2), I/O +4.3L since admit, Wt 132kg WBC (11/12): 8.5 CO2 (11/16): 26 BUN 14 Cr 0.70 Alb 3.6 ABG (11/13): 7.43/40/84/29/97% (FiO2 40%) Sputum (11/12): NF CXR (11/16): bibasilar opacities. No ptx, no effusion. Echo (11/10): EF 60-65%, suboptimal study Assessment: -chronic hypoxia (3L since admission) -YOSELYN, non-compliant with home CPAP with PS10. -Obesity -Atelectasis -prior tobacco use (up to 4ppd [id number]) -recent R MCA infarct. bilateral ICA narrowing -PAFib -CAD (s/p CABG) -dysphagia (plans for PEG) -deconditioning Plan: -Plan to reinitiate home CPAP with pressure support of 10 at time of sleep, after PEG placed tomorrow and NG can be removed. This should resolve nocturnal desaturations. Followup with outpt sleep clinic. -Wean supplemental O2 for pulseox >88% -With smoking history would continue duonebs qid for now. Eventual outpt PFT's -Pt up 4.3L since admission. Check BNP. Gently diurese -Needs continued use of incentive spirometry several times daily for basilar atelectasis on CXR. -PT/OT -Weight loss encouraged -If no improvement can consider chest CT next week, however I suspect he may need 1-2L O2 at time of discharge. Thank you for allowing me to take part in Mr Mehta's care. Please call with any questions. Prabhjot Ferrell MD Nov 17, 2016 12:18
--- NOTE | 2016-11-17 13:35 | NUR ---
Wilson Cath: Wilson catheter was placed for patient due to his extreme immobility issues 2 person max assist and risk for skin breakdown. Patient tolerated the procedure without issues. Patient has a good urinary output.
--- NOTE | 2016-11-17 13:41 | NUR ---
SUPPLY CLERK provided cognitive-communication handouts to pt's niece as requested by nephew. Reviewed each handout and pt's session with SUPPLY CLERK this date.
--- NOTE | 2016-11-17 14:05 | NUR ---
Social Work- Continued D/C Planning/Multidisciplinary Rounds Data: EMR reviewed. Pt is on day 8 of hospitalization. Pt discussed in bedside multidisciplinary rounds. Pt to receive pulmonology consult and PEG tube Friday. [facility] accepted patient prior to this note. [facility]. Per MD note, pt should received carotid endarterectomy in approximately 2-3 weeks. [facility] has declined performing the procedure and have expressed concerns about accepting pt as a rehab candidate until it is resolved. reported at bedside rounds that she is reaching out to [facility] regarding the procedure. She feels strongly that pt requires inpt rehab and would like this to remain the pt's d/c plan. SW available to assist as able. T/C to Clinical Liaison at [facility], left message following up regarding this pt and requesting return call. Pt and family updated of plan, still agreeable to [facility] and are awaiting more information regarding carotid endarterectomy. SW will continue to follow. Assessment: Pt for whom inpt rehab is medically necessary pending acceptance at [facility]. Plan: hopeful that pt's carotid endarterectomy will be able to be addressed and thus will not be a barrier to inpt rehabilitation at [facility]. is working on this, SALES [employer]UIT[employer] REPRESENTATIVE to assist as able. Awaiting return call from [facility] regarding their concerns. SW will continue to follow. LISA Gallegos
[2016-11-17] MEDS ORDERED: Furosemide 10 mg/mL 2 mL Inj IVPUSH ONE (16:30)
--- NOTE | 2016-11-17 18:00 | NUR ---
Mobility: Patient was assisted to a Maranda chair by 3 nursing staff members today. Patient is maximum assist and can stand for a few seconds to pivot transfer from the bed to the chair. He tolerated the activity fairly well.
[2016-11-17] MEDS: Insulin GLARgine 100 Unit/mL Syringe SUBQ SCH (21:58)
--- NOTE | 2016-11-17 21:59 | PCM.PNMED ---
Subjective Date of Service Nov 17, 2016 Subjective Patient is seen and examined twice, once with group rounding and once on my own. Family present both times (niece's ). Dark, slightly bloody urine in catheter, due to minor pruitt cath insertion trauma, pt states he has no pain. Heis eyes look much improved. No new concerns. Exam Vital Signs Vital Sign - Last Date Time Temp Pulse Resp B/P Pulse Ox O2 Delivery O2 Flow Rate FiO2 11/17/16 21:51 180/74 11/17/16 21:26 37.1 68 20 95 Nasal Cannula 3.00 11/12/16 20:21 21 Intake and Output 11/16/16 11/16/16 11/17/16 Cumulative From/Thru 15:00 23:00 07:00 11/09/16 12:55 - 11/17/16 06:13 Intake Total 241 ml 0 ml 61641 ml Output Total 3440 ml 399 ml 87887 ml Balance -3199 ml -399 ml 4339 ml Intake Oral 0 ml 0 ml 120 ml IV Total 88794 ml Tube Feeding 241 ml 278 ml Tube Irrigant 30 ml Output Urine Total 3440 ml 399 ml 47737 ml # Voids 3 # Bowel Movements 1 1 8 Exam Gen: NAD, sitting up in chair HEENT: improved eye erythema, facial droop improved Heart: RRR, no s3/s4 Lungs: Diminished due to large body habitus Abd: Obese, non tender MSK: He is moving his Left foot more but otherwise no change CN II-XII grossly normal with the exception of weakened facial and shoulder strenght on left side. Facial assymetry No anxiety or agitation IVs and Medications Medications Reviewed: Medications were reviewed in detail Lab and Diagnostics Result Diagram: 11/12/16 0550 11/16/16 0547 X-Rays, CTs and MRIs 11/09/16 MRI BRAIN WITH AND WITHOUT CONTRAST Brain: Scant [id number] midline shift. No intracranial bleeds or masses. No abnormal intracranial enhancement. The brainstem appears normal. Diffusion- weighted images demonstrate definite acute ischemic insults involving the right middle cerebral artery vascular distribution and extending into the basal ganglia on the right, with largest measurements of the area of subacute stroke currently measuring up to 7.2 cm AP and 3.8 cm transverse with a craniocaudad extent of approximately 3.9 cm. Subtle flow abnormalities are present on T2 and postcontrast T1 imaging in the area of thrombus present at the junction of the M1 and M2 segments right middle cerebral artery. Several additional punctate foci of infarction are present involving the anterior tip of the right temporal lobe and also the temporal occipital junction on the right. No chronic ischemic insults. Normal intravascular flow voids are present. IMPRESSION: Moderately large right middle cerebral artery vascular distribution with early mild to moderate mass effect, causing only slight right- to-left deviation of the midline structures, without associated hemorrhage. As discussed above and previously during CT angiographic report there is a thrombus that currently is likely partially obstructing the junction of the right middle cerebral artery M1-M2 junction. A portion of this thrombus is involving the lenticulostriate origins on the right is the presumed explanation for the basal ganglia contiguous infarction in that area and embolic etiology is the likely cause given the presence of several additional punctate foci of subacute ischemic injury involving the anterior and posterior margins of the right temporal lobe Chest Xray Interpretation: IMPRESSION: 1. Focal opacity in the periphery of the left midlung suspicious for pulmonary contusion. 2. Left seventh and eighth rib fractures. Dictated by: Cindi Red MD, PhD on 11/09/2016 at 13:28 Approved by: Cindi Red MD, PhD on 11/09/2016 at 13:30 View: Portable, 1 view Interpretation / Wet Read by: Interpret - Radiologist CT ANGIO HEAD AND NECK: IMPRESSION: 1. Subtle loss of morrow-white matter change involving the right basal ganglia suspicious for acute infarct. 2. No intracranial hemorrhage. 3. Absence of flow in the distal M1 segment and the proximal M2 segments of the right middle cerebral artery compatible presence of thrombus. 4. 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 5. High-grade, proximally 70-80% stenosis of the origin the left internal carotid artery. 6. Moderate stenosis of the origins of the vertebral arteries. 7. Image quality severely degraded by patient motion artifact. 8. Findings telephoned to Dr. Suleman Pedroza on 11/09/2016 at 1557 hrs. 12-lead ECG ECG Interpretation: sinus rate 70 non specific intraventricular conduction delay poor baseline quality multiple PVC's no obvious ST elevation no prior for comparison Time: 12:55 Interpreted by: ED physician Assessment & Plan Patient is a 76 year old male with a history of CAD and DM who presents to the ED via EMS complaining of L sided paralysis upon waking this morning with CTA- finding of Acute infarct Right Basal Ganglia right middle cerebral artery compatible presence of thrombus. Moderately Large Right MCA Ischemic Infarct involving Basal Ganglia, acute, active- p/w Left sided hemiparesis. MRI Brain- shows early mild to moderate mass effect. Per MRI/CTA- Thrombus that likely partially obstructing the junction of the right MCA at M1-M2 junction. Presented outside of tPA window. ED called [facility], not a candidate for clot retrieval. Etiology likely Atrial Fibrillation. Allowed permissive HTN first 48 hrs, cardiac monitoring. 11/10-Echo- EF 60-65%, atria are not well visualized but grossly appear normal in size. - Lipid Panel- uremarkable. - Cardiac Monitoring for possible A-Fib. - Consulted Neuro- Dr. Chand. Her initial Recs- med management w/ dual anti- platelet therapy. ASA/Plavix for 90 days. High dose Atorvastatin. 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 - Added SC ASA prn if can't take PO Meds. - PT recs Inpt rehab. Speech advanced his diet on 11/12 to stim diet, still no liquids, started IVF - Can follow up with Dr. Chand in 2-3 weeks. -- Per speech therapy, patient is still unable to handle thin liquids are thickened liquids. Consent is obtained from patient for PEG tube placement -- 11/13 discussed PEG tube placement with GI, they want him off of Plavix for 5 days for the procedure, held Plavix on 11/14 -- 11/16 NG tube was placed and patient able to tolerate tube feeds -- 11/17 NPO after mid night for PEG tube placement in the am. Hold ASA in the am , Dr. Franklin was called and he said pt will be put on schedule for tomorrow. Nursing communication order was placed to stop tube feeds at mid night. -- Will contact [facility] in the am for a possible transfer. Obstructive sleep apnea, chronic present on admission -- Patient continues to need 2-4 L of oxygen via nasal cannula -- ABG today did not show any concern for respiratory depression -- Appears that he is not taking deep breaths, encourage incentive spirometry -- Pulmonology was consulted, they have seen the patient. They have ordered another dose of furosemide 20 mg IV to address elevated BNP. We appreciate their recommendations -- Recs:"-Plan to reinitiate home CPAP with pressure support of 10 at time of sleep, after PEG placed tomorrow and NG can be removed. This should resolve nocturnal desaturations. Followup with outpt sleep clinic. -Wean supplemental O2 for pulseox >88% -With smoking history would continue duonebs qid for now. Eventual outpt PFT's -Pt up 4.3L since admission. Check BNP. Gently diurese -Needs continued use of incentive spirometry several times daily for basilar atelectasis on CXR. -If no improvement can consider chest CT next week, however I suspect he may need 1-2L O2 at time of discharge. " Allergic Conjunctivitis acute imroved -- Artifical tears ordred -- No pataday or azalastine on formulary. Visine . Eyedrops are ordered. -- On closer examination, blood vessels and patients eyes (especially the right one) appear to be enlarged, left eye has pterygium -- He will need ophthalmology referral Cerebral edema, acute, present on admission improving -- Stroke/CVA treatment as above Mild to Moderate mass effect due to R MCA Infarct- acute, active. Pt is Hemodynamically stable. Neuro exam unchanged since admit. - For reference; Baseline Neuro Exam as of 11/10- Alert and Oriented x 3. Moderate slurred speech. R Facial Droop, Left Hemiparesis. No R sided deficits at all. Sensation intact bilaterally. - frequent q4h Neuro checks, consider upgrade to ICU if more frequent neuro checks or change in mental status. - Per Dr. Davidson"Discussed case with Neuro-Dr. Chand. No Decadron. Get Stat CT Head for any significant change in Neuro exam or if becomes hemodynamically unstable. If mass effect worsens would need urgent transfer to [facility] for possible craniotomy. " B/L Carotid Artery Stenosis- poa, active. Per CT- High-grade, 90% to near- complete occlusion of the origin of the right ICA. High-grade, proximally 70-80 % stenosis of the origin the L ICA. - 11/11- spoke with [facility]. They would want to wait 2-3 weeks until CVA stable before performing Carotid Endarterectomy. Instructed to schedule a follow up at [facility]. Agree with dual antiplatelet therapy. --11/16 I have called [facility] if he could be set up for carotid endarterectomy there in stead of [facility], they declined. In fact it seems that because of his anticipated carotid endarterectomy they do not even want him to be in the rehab rehabilitation until it is all cleared. -- Will address with [facility] in the am hx of Ground Level Fall, acute, active. Occurred 2 months ago per pt. sustained Left seventh and eighth rib fractures per CXR. Left Pulmonary Contusion. -- Continue to monitor CAD s/p CABG-chronic c/w ASA. Allow for permissive HTN, BP has been low off all HTN Meds. Will hold Metoprolol and resume at low dose once BP allows. DM-chronic - SSI, fingersticks. - Held hm Lantus 40u given low blood sugars. Patient has not been needing correction as he is also not eating much -Hold Metformin. - Hba1c of 6.7 Chronic hypertension worsening -- Restart patient's metoprolol on 11/13, increased to 125 mg PO BID on 11/17 -- Restart lisinopril home med full dose 11/14 -- Added amlodipine 5 mg on 11/16 -- He received another dose of IV Lasix 20 mg on 11/17 -- Aldactone 25 mg Daily to start on 11/18 am -- continue to monitor Morbid obesity, chronic ongoing -- Patient is presenting with a challenge to nursing due to large body habitus Code-Full Status- Patient is admitted under inpatient status expected length of stay greater than 2 midnights due to severity of presenting symptoms, risk of adverse events, and complexity of treatment plan. Dispo: Inpt rehab per PT/UR/SW GI Prophylaxis: Proton Pump Inhibitor VTE Prophylaxis: Sub-Q Heparin (Unfractionated) VTE Mechanical Devices: Intermittant Pneumatic CD Resuscitation Status: CPR: Attempt Resuscitation Time spent 30 min Spring Schulte DO Nov 17, 2016 21:59
[2016-11-18] VITALS (9 sets, daily range): BP systolic 166–179; BP diastolic 61–94; PULSE 75–90; RESP 16–28; O2SAT 90–96
[2016-11-18] MEDS: Heparin 5,000 Unit/mL Inj SUBQ SCH ×3 (00:22→16:30)
--- NOTE | 2016-11-18 02:22 | NUR ---
oxygenation patient consistently sats with cpap and 4 liter bleed 89-90percent. probe on ear and finger. denies dyspnea. repositioned. care ongoing.
--- NOTE | 2016-11-18 05:59 | NUR ---
ng tube pulled out patient pulled ng tube out. patient is awaiting the placement of a peg tube this am. has been npo since midnight. care ongoing.
[2016-11-18 07:01] LABS: Phosphorus 3.8 mg/dL (2.5-4.9)
[2016-11-18] MEDS: Insulin LISPRO 300 Unit/3 mL Inj SUBQ SCH ×4 (07:31→22:00)
--- NOTE | 2016-11-18 07:59 | ABG ---
DateTimeAnalyzed 07:52:00 -_ pH ____7.473 - 7.320 7.420 pCO2 ___47.9__ -mmHg 41.0 51.0 pO2 125 -mmHg 26.0 49.0 HCO3- ___34.7__ -mmol/L 22.0 26.0 ABE ____9.6__ -mmol/L -2.0 2.0 tHb ___15.8__ -g/dL 12.0 18.0 O2Hb ___95.7__ -% COHb ____2.0__ -% 1.5 MetHb ____0.8__ -% 0.4 1.5 sO2 ___98.5__ -% 40.0 70.0 FIO2 ___21.0__ -% Drawn By lab - Date/Time Notified____ 07:59:00 -_ Notified By jj - Notified Whom dr smith - B 760 -mmHg tO2 ___21.4__ -Vol% Noah test N/A -
[2016-11-18] MEDS ORDERED: Ketamine 10 mg/mL 20 mL Inj ONE (08:09)
--- NOTE | 2016-11-18 10:30 | PCM.PNMED ---
Subjective Date of Service Nov 18, 2016 Subjective Pulmonary Progress Note Briefly, this is a 76 yo M with hx of CAD, YOSELYN, and 40 year smoking history who presented with Atrial fibrillation and an acute Right MCA thrombotic infarct and a basal ganglia stroke with mild mass effect. TPA was not given due to unknown down time. During his hospitalization, he was noted to have persistent left hemiplegia and dysphagia. He also had worsening of his respiratory status, requiring 3-4L of O2 to maintain saturations. He was not on any O2 prior to this hospitalization. Overnight: No acute events. He continues to be on 3-4L of O2 by oxymask. Hospital Day #10 This morning, he was receiving a duoneb treatment during the examination. He reports he is feeling better. His POA Irvin was also present. Irvin states that patient is a poor historian, so he likes to be around to clarify statements. Patient denies any CP or SOB, but does report a mildly productive cough that does hurt with deep coughing. He is using his incentive spirometer when he is cued. He may be going to get a PEG tube today due to his dysphagia. Exam Vital Signs Vital Sign - Last Date Time Temp Pulse Resp B/P Pulse Ox O2 Delivery O2 Flow Rate FiO2 11/18/16 08:14 76 24 95 Nasal Cannula 4.00 11/18/16 05:06 36.8 169/80 11/12/16 20:21 21 Intake and Output 11/17/16 11/17/16 11/18/16 Cumulative From/Thru 15:00 23:00 07:00 11/09/16 12:55 - 11/18/16 06:38 Intake Total 0 ml 443 ml 32695 ml Output Total 350 ml 1925 ml 80886 ml Balance -350 ml -1482 ml 2507 ml Intake Oral 0 ml 0 ml 120 ml IV Total 80705 ml Tube Feeding 255 ml 533 ml Tube Irrigant 188 ml 218 ml Output Urine Total 350 ml 1925 ml 36084 ml # Voids 2 5 # Bowel Movements 0 1 9 Exam Gen: Obese elderly male who appears in no acute distress, currently receiving a duoneb treatment HEENT: PERRL, Right conjunctiva erythematous, Oropharynx mildly dry but without thrush, Neck; Soft, trachea midline, no JVD noted CV: RRR with soft systolic murmur, peripheral pulses intact and equal Resp: Currently on 4L oxymask. No accessory muscle usage. Mild bibasilar rales noted with occasional expiratory wheezing. Productive cough noted. Suctioned sputum appears whitish Abd: Obese, soft, ND, NT, +BS MSK: No swollen to tender joints Neuro: Decreased MS of LUE and LLE. Mild left facial droop. Skin: Warm, dry, intact Psych: Appropriate mood and affect, cooperative. IVs and Medications Medications Reviewed: Medications were reviewed in detail Lab and Diagnostics Result Diagram: 11/12/16 0550 11/18/16 0613 X-Rays, CTs and MRIs 11/09/16 MRI BRAIN WITH AND WITHOUT CONTRAST Brain: Scant [id number] midline shift. No intracranial bleeds or masses. No abnormal intracranial enhancement. The brainstem appears normal. Diffusion- weighted images demonstrate definite acute ischemic insults involving the right middle cerebral artery vascular distribution and extending into the basal ganglia on the right, with largest measurements of the area of subacute stroke currently measuring up to 7.2 cm AP and 3.8 cm transverse with a craniocaudad extent of approximately 3.9 cm. Subtle flow abnormalities are present on T2 and postcontrast T1 imaging in the area of thrombus present at the junction of the M1 and M2 segments right middle cerebral artery. Several additional punctate foci of infarction are present involving the anterior tip of the right temporal lobe and also the temporal occipital junction on the right. No chronic ischemic insults. Normal intravascular flow voids are present. IMPRESSION: Moderately large right middle cerebral artery vascular distribution with early mild to moderate mass effect, causing only slight right- to-left deviation of the midline structures, without associated hemorrhage. As discussed above and previously during CT angiographic report there is a thrombus that currently is likely partially obstructing the junction of the right middle cerebral artery M1-M2 junction. A portion of this thrombus is involving the lenticulostriate origins on the right is the presumed explanation for the basal ganglia contiguous infarction in that area and embolic etiology is the likely cause given the presence of several additional punctate foci of subacute ischemic injury involving the anterior and posterior margins of the right temporal lobe Chest Xray Interpretation: IMPRESSION: 1. Focal opacity in the periphery of the left midlung suspicious for pulmonary contusion. 2. Left seventh and eighth rib fractures. Dictated by: Cindi Red MD, PhD on 11/09/2016 at 13:28 Approved by: Cindi Red MD, PhD on 11/09/2016 at 13:30 View: Portable, 1 view Interpretation / Wet Read by: Interpret - Radiologist CT ANGIO HEAD AND NECK: IMPRESSION: 1. Subtle loss of morrow-white matter change involving the right basal ganglia suspicious for acute infarct. 2. No intracranial hemorrhage. 3. Absence of flow in the distal M1 segment and the proximal M2 segments of the right middle cerebral artery compatible presence of thrombus. 4. 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 5. High-grade, proximally 70-80% stenosis of the origin the left internal carotid artery. 6. Moderate stenosis of the origins of the vertebral arteries. 7. Image quality severely degraded by patient motion artifact. 8. Findings telephoned to Dr. Suleman Pedroza on 11/09/2016 at 1557 hrs. 12-lead ECG ECG Interpretation: sinus rate 70 non specific intraventricular conduction delay poor baseline quality multiple PVC's no obvious ST elevation no prior for comparison Time: 12:55 Interpreted by: ED physician Cardiac Echo Impressions Interpretation Summary This study quality was technically difficult with the patient being confused, unable to follow commands, and grabbing the scanning probe throughout exam. The left ventricle is not well visualized but grossly appears normal in size and left ventricular systolic function is probably normal with the ejection fraction grossly estimated to be 60-65% without obvious focal wall motion abnormalities but poor endocardial definition reduces the sensitivity for the detection of such. There is probable borderline concentric left ventricular hypertrophy. The right ventricle is not well visualized but grossly appears normal in size with probable normal systolic function. Pulmonary artery pressures cannot be estimated because of the lack of a measurable TR jet velocity but the IVC suggests a right atrial pressure of 8 mm Hg. The atria are not well visualized but grossly appear normal in size. The interatrial septum grossly appears intact with no evidence for an atrial septal defect and the injection of contrast shows no obvious interatrial shunt but poor image quality significantly reduces the sensitivity for the detection of such. Clinical correlation is recommended. There is no obvious significant valvular heart disease. Assessment & Plan 76 yo M with hx of CAD, YOSELYN, and 40 year smoking history who presented with Atrial fibrillation and an acute Right MCA thrombotic infarct and a basal ganglia stroke with mild mass effect. TPA was not given due to unknown down time. During his hospitalization, he was noted to have persistent left hemiplegia and dysphagia. He also had worsening of his respiratory status, requiring 3-4L of O2 to maintain saturations. He was not on any O2 prior to this hospitalization. Assessment: -Acute hypoxic respiratory failure - likely multifactorial -Atelectasis -recent R MCA thrombotic infarct with basal ganglia embolic infarct and bilateral ICA narrowing R>L -Paroxysmal Atrial Fibrillation -YOSELYN, non-compliant with home CPAP with PS10. -Obesity, BMI 40 -CAD (s/p CABG) -dysphagia secondary to CVA -deconditioning -prior tobacco use (up to 4ppd [id number]) Plan: -Plan to consult Respiratory Therapy for CPAP fitting since patient does not seem to be tolerating his current one at all. This should help with nocturnal desats. -Recommend maintaining saturations between 88-92%. Patient likely has some obstructive disease with his long history of tobacco usage. -Continue with Duonebs TID and also encourage Acapella usage after treatments. -Patient appropriately diuresed, will hold off on any further diuresis for now. -Encourage PT/OT for ambulation -Weight loss encouraged, recommend increasing bed angle to alleviate any obesity hypoventilation difficulties. -If no improvement can consider chest CT next week, Consider roadtesting prior to discharge. -Repeat ABG in the AM Appreciate the interesting consult, we will continue to monitor along. Pain Evaluation: Adequate Pain Control GI Prophylaxis: Proton Pump Inhibitor VTE Prophylaxis: Sub-Q Heparin (Unfractionated) VTE Mechanical Devices: Intermittant Pneumatic CD Resuscitation Status: CPR: Attempt Resuscitation EuniceSaul Leandra DO Nov 18, 2016 10:[address] Head for any significant change in Neuro exam or if becomes hemodynamically unstable. If mass effect worsens would need urgent transfer to [facility] for possible craniotomy. " B/L Carotid Artery Stenosis- poa, active. Per CT- High-grade, 90% to near- complete occlusion of the origin of the right ICA. High-grade, proximally 70-80 % stenosis of the origin the L ICA. - 11/11- spoke with [facility]. They would want to wait 2-3 weeks until CVA stable before performing Carotid Endarterectomy. Instructed to schedule a follow up at [facility]. Agree with dual antiplatelet therapy. --11/16 I have called [facility] if he could be set up for carotid endarterectomy there in stead of [facility], they declined. In fact it seems that because of his anticipated carotid endarterectomy they do not even want him to be in the rehab rehabilitation until it is all cleared. -- Will address with [facility] in the am hx of Ground Level Fall, acute, active. Occurred 2 months ago per pt. sustained Left seventh and eighth rib fractures per CXR. Left Pulmonary Contusion. -- Continue to monitor CAD s/p CABG-chronic c/w ASA. Allow for permissive HTN, BP has been low off all HTN Meds. Will hold Metoprolol and resume at low dose once BP allows. DM-chronic - SSI, fingersticks. - Held hm Lantus 40u given low blood sugars. Patient has not been needing correction as he is also not eating much -Hold Metformin. - Hba1c of 6.7 Chronic hypertension worsening -- Restart patient's metoprolol on 11/13, increased to 125 mg PO BID on 11/17 -- Restart lisinopril home med full dose 11/14 -- Added amlodipine 5 mg on 11/16 -- He received another dose of IV Lasix 20 mg on 11/17 -- Aldactone 25 mg Daily to start on 11/18 am -- continue to monitor Morbid obesity, chronic ongoing -- Patient is presenting with a challenge to nursing due to large body habitus Code-Full Status- Patient is admitted under inpatient status expected length of stay greater than 2 midnights due to severity of presenting symptoms, risk of adverse events, and complexity of treatment plan. Dispo: Inpt rehab per PT/UR/SW GI Prophylaxis: Proton Pump Inhibitor VTE Prophylaxis: Sub-Q Heparin (Unfractionated) VTE Mechanical Devices: Intermittant Pneumatic CD Resuscitation Status: CPR: Attempt Resuscitation Saul Dawson DO Nov 18, 2016 10:30
--- NOTE | 2016-11-18 13:00 | NUR ---
Social Work-continued d/c planning: Data:EMR Reviewed. Pt is on day 9 of hospitalization for stroke per H&P. Pt is not medically stable anticipate 1-2 more days. Pt to have PEG Tube placed today. ANA spoke with Parvin at [facility] who states they have concern about taking pt prior to him having his surgery done. ANA spoke with MD in morning rounds who states pt may not even have the surgery. The surgeon's just want to see pt outpt and then they will decide if he will have surgery or not. ANA called Parvin at [facility] back and she will re-look at this information and call ANA back. MD order also received for SNF placement. ANA spoke with pt and nephramos Bryan [phone] at bedside, ANA role explained. ANA explained that [facility] is still looking into if they can accept pt or not. ANA explained it may be a good idea to get a SNF choice in case this facility is not able to accept pt. SNF choice list provided. Pt would like a referral to [facility] because he has been there before. ANA faxed [facility] and facesheet and provided access in [employer]. Paperwork in the chart. ANA will continue to follow. Assessment:Pt who would benefit from rehab. Plan:[facility] to determine if they can accept pt. [facility] has been faxed. Paperwork in the chart. ANA will continue to follow. LISA Sevilla
--- NOTE | 2016-11-18 14:42 | NUR ---
NUTRITION FOLLOW-UP: ASSESS: 76 YO male admitted with stroke. Pt has been NPO/stimulation diet x 9 days. NG tube placed 11/15. Enteral feeding rate currently 30ml/hr, NG tube was pulled by pt per RN, currently off with NPO status for PEG tube placement today. PMHx: CAD, DM. LABS: Reviewed. Glu 137,Alb 3.6, Co2 34 MEDS:Reviewed. GI: BM x 1 11/18 CURRENT WT: 132.2 kg, BMI 40.0 kg/m2. Admit weight: 132.2 kg. IBW: 78.2 kg. Adj BW: 91.7 kg. DIET: Stimulation diet/Tube Feeding. NG Tube removed, pt diet held for NPO prior to surgery. EST. NEEDS: 3538-1900 kcals (25-30 kcals/kg Adj. BW), 110-140 g protein (1.2-1.5 g/kg Adj. BW) NUTRITION DIAGNOSIS: 1) Chewing / Swallowing difficulties related to motor causes (stroke) as evidenced by inability to tolerate diet beyond stimulation texture. ST following - PERSISTS. 2) Inadequate oral intake related to inability to consume sufficient energy as evidenced by NPO/stimulation diet x 9 days - PERSISTS. PEG tube placement today. NUTRITION INTERVENTION: 1) Tube feeding orders placed in chart as follows, for advancement s/p PEG placement: Glucerna 1.5 at 25ml/hr advancing 10ml q 8 hrs to goal rate of 60 mL/hr to provide 2070 kcals and 114 g protein per day (goal rate will need to be adjusted based off of po intake). Additional kcals to meet needs will come from pt eating stimulation diet. Recommend H2O flush dose of 30 ml every 4 hours while pt is on IV fluids. Once IV fluids are stopped, recommend flush dose of 50 mL every 1 hours to provide a total of 2247 ML free H2O per day from TF and flushes. PLAN: Monitor tube feeding initiation/tolerance, diet tolerance, labs. F/U per high risk. Addendum: 11/18/16 at [address] TUBE FEEDING ORDERS MODIFIED: Per discussion with RN pt has not had PEG tube placed today and unclear if IV fluids to continue. Tube feeding order remains in chart as previously written: Glucerna 1.5 at 10ml/hr advancing 10ml q 8 hrs to goal rate of 60ml/hr with H20 flush of 30ml q 4hrs OR 50ml q hr once IV fluids discontinued. Will follow closely, modify advancement rate pending PEG placement/tube feeding tolerance established.
[2016-11-18] MEDS ORDERED: CeFAZolin Inj 2 GM in IV Premix 1 EACH IV ONE ×2 (16:35→16:53)
--- NOTE | 2016-11-18 16:54 | NUR ---
Social Work received a call back from Parvin at [facility]. Parvin states their medical doctor md/medical director has decided they will accept pt. Parvin states they would like to see pt on the tube feeds for at least 24 hours to make sure everything is going ok. SW to update [facility] tomorrow and family. Tatyana Epps,[employer]ATIVE OFFICER
[2016-11-18] MEDS ORDERED: Lidocaine PF 2% 10 mL Inj ONE (17:30)
--- NOTE | 2016-11-18 17:35 | NUR ---
Pt off floor to ENDO for PEG TUBE placement
--- NOTE | 2016-11-18 17:59 | PCM.HPANE ---
Patient Data Date of Service: Nov 18, 2016 Surgeon Admitting Provider:Sergei Davidson MD Attending Provider:Spring Schulte DO Primary Care Physician:Jesica Kirk PA-C Other Provider: Reason for Visit Stroke STROKE Ht/WT & BMI Height (Feet): 5 Height (Inches): 11.00 Weight (Kilograms): 132.200 Body Mass Index 40.83 Allergies Coded Allergies: No Known Allergies (Unverified , 11/09/16) Past Anesthesia History Anesthesia History: Denies:: Abnormal Airway, Anesthesia Reactions, Difficult Intubation, Fam Anesthesia Reaction, Fam Malignant Hypertherm, Malignant Hyperthermia Diabetes History Hx Diabetes?: Yes Type of Diabetes: Type II Current Bedside Blood Glucose: 96 MRSA MRSA: No Medications Hypertension Medication: Yes Home Meds Incl Beta Claudia: Yes Previous Beta Claudia Dose >24: Previous Dose <24 Hours Reported Medications Calcium Carbonate 600 Mg [id number] Mg PO QAM 11/09/16 Cholecalciferol (Vitamin D3) (Vitamin D3)2,000 Unit Tablet2,000 Unit PO QAM 11/09/16 Vit A,C & E/Lutein/Minerals (Ocuvite with Lutein Tablet)1 Each Tablet1 Each PO QAM 11/09/16 Ascorbic Acid (Vitamin C)250 Mg Tab.ldzd012 Mg PO QAM #30 TABLET Ref 0 11/09/16 Triamcinolone Acetonide (Nasacort)10.8 Ml Spray2 Sprays NS QAM 11/09/16 Aspirin 81 Mg Grfmlw82 Mg PO QAM Ref 0 11/09/16 Hydrocodone-Acetaminophen 5-325 mg 1 Each Tablet1 Tablet PO Q6H PRN For Pain Ref 0 11/09/16 Insulin Glargine (Lantus U100 Insulin Vial)100 Unit/Ml Vial40 Unit SUBQ HS #1 VIAL Ref 0 11/09/16 Tadalafil (Cialis)5 Mg Tablet5 Mg PO QAM Ref 0 11/09/16 Metformin (Glucophage)1,000 Mg Tablet1,000 Mg PO BIDWM Ref 0 11/09/16 Tamsulosin (Flomax)0.4 Mg Capsule0.4 Mg PO HS Ref 0 11/09/16 Hydrochlorothiazide 25 Mg [id number] Mg PO QAM 30 Days Ref 0 11/09/16 Metoprolol Tartrate 100 Mg Pppqqc021 Mg PO BID 30 Days Ref 0 11/09/16 Lisinopril 40 Mg Uzdxpq97 Mg PO QAM 30 Days Ref 0 11/09/16 Trazodone 100 Mg [id number] Mg PO HS Ref 0 11/09/16 History History of ENT Problems?: Yes HEENT History: Positive for:: Cataracts Dysphagia Denies:: Abnormal Airway Difficult Intubation Glaucoma Sinus Problem Denture Type: Full- Upper Full- Lower Teeth Condition: No Teeth Hx of Heart Problems?: Yes Cardiovascular History: Positive for:: Atrial Fibrillation Cardiac Surgery (CABG x 5) Coronary Artery Disease Hypertension Denies:: Chest Pain Congestive Heart Failure Edema Heart Murmur Irregular Heartbeat Pacemaker Thrombophlebitis Other History/Comments CABG x5 2004, TTE 10/2016 probably normal RV/LV fn. 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 ARLENE SURGEY TO EYES,) Hx Any Other Health Problems?: Yes Other History: Positive for:: Hospitalization Denies:: Cancer Thyroid Disease History Blood Transfusions: Positive for:: Accept Blood Products? Denies:: Blood Transfusions Hx Diabetes: YesBedside Blood Glucose: 96 Hx Alcohol Use: YesHx Substance Use: No Smoking Status: Heavy Tobacco Smoker (150+py smoker) Have You Smoked inLast 12 mo: No Stop/Bang Treated for Sleep Apnea?: Yes Do You Have a CPAP Machine?: Yes S-Snoring: Do You Snore Loudly: Yes T-Tired: feel tired, fatigued: Yes O-Obsered: Observed not breath: Yes P-Blood Pressure: treated: Yes B- Body Mass Index > 35 kg/m2: Yes A- Age over 50: Yes N- Neck Large Circumference: Yes G- Gender Male: Yes YOSELYN Total Score: 8 YOSELYN Risk Assessment: High Risk, =/>3 Yes YOSELYN Category 4 OutPt Procedure: Yes Risk Assessment Category Category 1A: Patient has history of documented sleep apnea, and HAS NOT received any narcotic, sedative or anesthesia administration during this stay. Category 1B: Patient has history of documented sleep apnea, and HAS received any narcotic , sedative or anesthesia administration during this stay Category 2: Patient has SUSPECTED Obstructive Sleep Apnea, and HAS received any narcotic , sedative or anesthesia administration during this stay. Category 3: Patient has SUSPECTED Obstructive Sleep Apnea and HAS NOT received narcotic, sedative or anesthesia administration during this stay. Category 4: Outpatient in Procedural Areas with known sleep apnea or who screen positive for High Risk via the STOP/BANG questionnaire. Exam Exam Vital Signs Vital Signs Date Time Temp Pulse Resp B/P Pulse Ox O2 Delivery O2 Flow Rate FiO2 11/18/16 14:47 36.9 75 24 166/61 91 Room Air 11/18/16 14:00 Room Air General Appearance: Alert, Oriented X3, Cooperative, No Acute Distress, Other ( Slightly drowsy) HEENT/AIRWAY: MP 3 Lungs: Diminished (R base), Wheezes (R base) Heart: Exam Unremarkable, Regular Rate/Rhythm, No Murmurs/Rubs/Gallops Meds/Labs/Diagnostics Admission Meds Current Medications Metoprolol Tartrate (Lopressor) 125 mg BID PO Last administered on 11/17/16t 19 :52; Start 11/17/16 at 20:30 Bedside Blood Glucose: 96 Labs Test 11/09/16 13:46 11/12/16 05:50 11/13/16 08:30 11/17/16 13:35 Prothrombin Time 11.1sec (8.1-12.5) Prothromb Time International Ratio 1.04ratio Activated Partial Thromboplast Time 24.7sec (22.8-33.0) Hemoglobin A1c 6.7% (4.8-5.6) Total Creatine Kinase 648U/L (21-232) Troponin T < 0.010ug/L (0.0-0.011) Triglycerides Level 76mg/dL (0-149) Cholesterol Level 126mg/dL (100-199) LDL Cholesterol, Calculated 62.800mg/dL (0-99) VLDL Cholesterol 15.200mg/dL HDL Cholesterol 48mg/dL (>39) Cholesterol/HDL Ratio 2.63 (0.0-4.4) Hold Manjarrez Top Tube Received (Received) White Blood Count 8.5th/mm3 (3.8-10.1) Red Blood Count 5.03mil/mm3 (4.40-5.80) Hemoglobin 15.0g/dL (13.8-17.2) Hematocrit 44.3% (41.0-50.0) Mean Corpuscular Volume 88.1fL (81-100) Mean Corpuscular Hemoglobin 29.8pg (27.0-35.0) Mean Corpuscular Hemoglobin Concent 33.9% (32.0-37.0) Red Cell Distribution Width 13.3% (12.3-15.4) Platelet Count 166bil/L (150-400) Neutrophils (%) (Auto) 67.1% (40-74) Lymphocytes (%) (Auto) 16.2% (14-46) Monocytes (%) (Auto) 12.2% (4-12) Eosinophils (%) (Auto) 4.1% (0-5) Basophils (%) (Auto) 0.2% (0-3) Magnesium Level 2.1mg/dL (1.6-2.6) Pro-B-Type Natriuretic Peptide 2360pg/mL (0-486) Test 11/18/16 06:13 Sodium Level 143mEq/L (134-144) Potassium Level 3.7mEq/L (3.5-5.2) Chloride Level 100mEq/L (97-108) Carbon Dioxide Level 34mmol/L (18-29) Blood Urea Nitrogen 21mg/dL (8-27) Creatinine 0.68mg/dL (0.76-1.27) Estimat Glomerular Filtration Rate 121mL/min (>59) Glucose Level 137mg/dL (60-99) Calcium Level 8.7mg/dL (8.5-10.1) Phosphorus Level 3.8mg/dL (2.5-4.9) Total Bilirubin 0.7mg/dL (0.0-1.2) Aspartate Amino Transf (AST/SGOT) 23U/L (0-50) Alanine Aminotransferase (ALT/SGPT) 18U/L (0-44) Alkaline Phosphatase 47U/L (25-160) Total Protein 6.0g/dL (6.4-8.4) Albumin 3.6g/dL (3.4-5.0) Plan Impression Patient chart reviewed, patient interviewed and anesthestic plan with risks, benefits, and alternatives discussed, and informed consent obtained. NPO per Anesth. Guidelines: Yes ASA Physical Status: ASA3 Severe Disease Anesthetic Plan: MAC Bene/Risks/Altern/Consents: Yes HP Complete Prior to Induction: Yes Other Discussed with Enrique Bryan possibility of ETT placement and difficulty extubating necessitating ICU admission and prolonged extubation until able to again use CPAP. Prabhjot Henriquez MD Nov 18, 2016 17:19
[2016-11-18] MEDS ORDERED: Albuterol 2.5 mg/3 mL Inhalation Solution NEB ONE (18:01)
[2016-11-18] MEDS ORDERED: Lactated Ringer's 1,000 ML IV ONE (18:01)
--- NOTE | 2016-11-18 18:29 | NUR ---
O2 Needs/Activity Pt on 4L NC in AM with CPOX satting at 88-91%. Nebs administered per orders, RT in to eval Venous gas. Pt is CO2 retainer, RT suggesting to keep O2 administration just enough to maintain saturation - placed on 2L NC and encouraged to take slow deep breaths. Pt having SOB while in bed/at rest and occ falls asleep. Monitoring pt, educating family that pt needs to have CPAP unit on when pt falls asleep. When sleeping placing 2L bleed on CPAP unit. Pt up with PT and OT, placed in chair. Recommended to be 2P max assist, or use lift for transferring d/t L Sided weakness/stroke. With activity pt able to tolerate while on RA. Continuing to leave pt on RA with appropriate saturations and CPAP+2L when napping. Pt being transferred to Room 2011 post PEG tube placement for room with built in lift.
--- NOTE | 2016-11-18 19:17 | PCM.ANEP1 ---
Post Anesthesia PACU Phase 1 Assessment Date of Service: Nov 18, 2016 Vital Signs Vital Signs Date Time Temp Pulse Resp B/P Pulse Ox O2 Delivery O2 Flow Rate FiO2 11/18/16 19:10 86 24 172/94 93 Nasal Cannula 6 11/18/16 19:05 90 28 93 NC VIA NASAL AIRWAY 6 11/18/16 18:24 78 20 96 Nasal Cannula 3.00 11/18/16 17:41 75 16 166/82 95 Nasal Cannula 4 11/18/16 14:47 36.9 75 24 166/61 91 Room Air 11/18/16 14:00 Room Air Anesthetic Administered: MAC Level of Alertness: Awake, talking Pain: No Nausea or Vomiting: No CV Function & Hydration Stable: Yes Airway Device: Nasal Airway Oxygen Delivery: Nasal Cannula Lungs: Diminished (R base still diminished, L base still poor diaph. excursion , wheezing not returned, respiratory status still better than on arrival to endoscopy suite.) PACU Phase 2 Assessment Complications: No Follow up Care: No Patient Instructions Provided: N/A Prabhjot Henriquez MD Nov 18, 2016 19:17
[2016-11-18] MEDS: Insulin GLARgine 100 Unit/mL Syringe SUBQ SCH (21:00)
--- NOTE | 2016-11-18 22:40 | PCM.PNMED ---
Subjective Date of Service Nov 18, 2016 Subjective Patient is seen and examined. His conjunctiva erythema has improved. Still sleepy, has CPAP on, desaturating less oxygen is increased to 3-4 L. Exam Vital Signs Vital Sign - Last Date Time Temp Pulse Resp B/P Pulse Ox O2 Delivery O2 Flow Rate FiO2 11/18/16 21:00 37.4 76 24 170/81 90 Nasal Cannula 3.00 11/12/16 20:21 21 Intake and Output 11/17/16 11/17/16 11/18/16 Cumulative From/Thru 15:00 23:00 07:00 11/09/16 12:55 - 11/18/16 06:38 Intake Total 0 ml 443 ml 61144 ml Output Total 350 ml 1925 ml 63939 ml Balance -350 ml -1482 ml 2507 ml Intake Oral 0 ml 0 ml 120 ml IV Total 14270 ml Tube Feeding 255 ml 533 ml Tube Irrigant 188 ml 218 ml Output Urine Total 350 ml 1925 ml 11006 ml # Voids 2 5 # Bowel Movements 0 1 9 Exam Gen: NAD, laying in bed with closed eyes HEENT: improved eye erythema, facial droop improved Heart: RRR, no s3/s4 Lungs: Diminished due to large body habitus Abd: Obese, non tender MSK: He is moving his Left foot more but otherwise no change CN II-XII grossly normal with the exception of weakened facial and shoulder strength on left side. Facial assymetry No anxiety or agitation IVs and Medications Medications Reviewed: Medications were reviewed in detail Lab and Diagnostics Result Diagram: 11/12/16 0550 11/18/16 0613 X-Rays, CTs and MRIs 11/09/16 MRI BRAIN WITH AND WITHOUT CONTRAST Brain: Scant [id number] midline shift. No intracranial bleeds or masses. No abnormal intracranial enhancement. The brainstem appears normal. Diffusion- weighted images demonstrate definite acute ischemic insults involving the right middle cerebral artery vascular distribution and extending into the basal ganglia on the right, with largest measurements of the area of subacute stroke currently measuring up to 7.2 cm AP and 3.8 cm transverse with a craniocaudad extent of approximately 3.9 cm. Subtle flow abnormalities are present on T2 and postcontrast T1 imaging in the area of thrombus present at the junction of the M1 and M2 segments right middle cerebral artery. Several additional punctate foci of infarction are present involving the anterior tip of the right temporal lobe and also the temporal occipital junction on the right. No chronic ischemic insults. Normal intravascular flow voids are present. IMPRESSION: Moderately large right middle cerebral artery vascular distribution with early mild to moderate mass effect, causing only slight right- to-left deviation of the midline structures, without associated hemorrhage. As discussed above and previously during CT angiographic report there is a thrombus that currently is likely partially obstructing the junction of the right middle cerebral artery M1-M2 junction. A portion of this thrombus is involving the lenticulostriate origins on the right is the presumed explanation for the basal ganglia contiguous infarction in that area and embolic etiology is the likely cause given the presence of several additional punctate foci of subacute ischemic injury involving the anterior and posterior margins of the right temporal lobe Chest Xray Interpretation: IMPRESSION: 1. Focal opacity in the periphery of the left midlung suspicious for pulmonary contusion. 2. Left seventh and eighth rib fractures. Dictated by: Cindi Red MD, PhD on 11/09/2016 at 13:28 Approved by: Cindi Red MD, PhD on 11/09/2016 at 13:30 View: Portable, 1 view Interpretation / Wet Read by: Interpret - Radiologist CT ANGIO HEAD AND NECK: IMPRESSION: 1. Subtle loss of morrow-white matter change involving the right basal ganglia suspicious for acute infarct. 2. No intracranial hemorrhage. 3. Absence of flow in the distal M1 segment and the proximal M2 segments of the right middle cerebral artery compatible presence of thrombus. 4. 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 5. High-grade, proximally 70-80% stenosis of the origin the left internal carotid artery. 6. Moderate stenosis of the origins of the vertebral arteries. 7. Image quality severely degraded by patient motion artifact. 8. Findings telephoned to Dr. Suleman Pedroza on 11/09/2016 at 1557 hrs. 12-lead ECG ECG Interpretation: sinus rate 70 non specific intraventricular conduction delay poor baseline quality multiple PVC's no obvious ST elevation no prior for comparison Time: 12:55 Interpreted by: ED physician Cardiac Echo Impressions Interpretation Summary This study quality was technically difficult with the patient being confused, unable to follow commands, and grabbing the scanning probe throughout exam. The left ventricle is not well visualized but grossly appears normal in size and left ventricular systolic function is probably normal with the ejection fraction grossly estimated to be 60-65% without obvious focal wall motion abnormalities but poor endocardial definition reduces the sensitivity for the detection of such. There is probable borderline concentric left ventricular hypertrophy. The right ventricle is not well visualized but grossly appears normal in size with probable normal systolic function. Pulmonary artery pressures cannot be estimated because of the lack of a measurable TR jet velocity but the IVC suggests a right atrial pressure of 8 mm Hg. The atria are not well visualized but grossly appear normal in size. The interatrial septum grossly appears intact with no evidence for an atrial septal defect and the injection of contrast shows no obvious interatrial shunt but poor image quality significantly reduces the sensitivity for the detection of such. Clinical correlation is recommended. There is no obvious significant valvular heart disease. Assessment & Plan Patient is a 76 year old male with a history of CAD and DM who presents to the ED via EMS complaining of L sided paralysis upon waking this morning with CTA- finding of Acute infarct Right Basal Ganglia right middle cerebral artery compatible presence of thrombus. Moderately Large Right MCA Ischemic Infarct involving Basal Ganglia, acute, active- p/w Left sided hemiparesis. MRI Brain- shows early mild to moderate mass effect. Per MRI/CTA- Thrombus that likely partially obstructing the junction of the right MCA at M1-M2 junction. Presented outside of tPA window. ED called [facility], not a candidate for clot retrieval. Etiology likely Atrial Fibrillation. Allowed permissive HTN first 48 hrs, cardiac monitoring. 11/10-Echo- EF 60-65%, atria are not well visualized but grossly appear normal in size. - Lipid Panel- uremarkable. - Cardiac Monitoring for possible A-Fib. - Consulted Neuro- Dr. Chand. Her initial Recs- med management w/ dual anti- platelet therapy. ASA/Plavix for 90 days. High dose Atorvastatin. PT/OT/[employer]. - Added CT ASA prn if can't take PO Meds. - PT recs Inpt rehab. Speech advanced his diet on 11/12 to stim diet, still no liquids, started IVF - Can follow up with Dr. Chand in 2-3 weeks. -- Per speech therapy, patient is still unable to handle thin liquids are thickened liquids. Consent is obtained from patient for PEG tube placement -- 11/13 discussed PEG tube placement with GI, they want him off of Plavix for 5 days for the procedure, held Plavix on 11/14 -- 11/16 NG tube was placed and patient able to tolerate tube feeds -- 11/17 NPO after mid night for PEG tube placement in the am. Hold ASA in the am , Dr. Franklin was called and he said pt will be put on schedule for tomorrow. Nursing communication order was placed to stop tube feeds at mid night. -- 11/18 contacted [facility] in the am for a possible transfer for carotid endarterectomy, talked to the vascular surgery. They do not recommend endarterectomy with patient's modified tex functional score of 4-5. -- Social work is working on finding a placement, looks like it will be [facility] versus SN[facility] -- Patient is scheduled ot get a PEG tube 11/18, need to restart both plavix and ASA in the AM. -- He needs a 24 trial with PEG tube prior to d/c, so will not d/c till 11/20. -- 11/[address] Fermin was consulted, he made patient DO NOT RESUSCITATE DO NOT INTUBATE. We appreciate the recommendations Obstructive sleep apnea, chronic present on admission -- Patient continues to need 2-4 L of oxygen via nasal cannula -- ABG today did not show any concern for respiratory depression -- Appears that he is not taking deep breaths, encourage incentive spirometry -- Pulmonology was consulted, they have seen the patient. They have ordered another dose of furosemide 20 mg IV to address elevated BNP. We appreciate their recommendations -- Recs:"-Plan to reinitiate home CPAP with pressure support of 10 at time of sleep, after PEG placed tomorrow and NG can be removed. This should resolve nocturnal desaturations. Followup with outpt sleep clinic. -Wean supplemental O2 for pulseox >88% -With smoking history would continue duonebs qid for now. Eventual outpt PFT's -Pt up 4.3L since admission. Check BNP. Gently diurese -Needs continued use of incentive spirometry several times daily for basilar atelectasis on CXR. -If no improvement can consider chest CT next week, however I suspect he may need 1-2L O2 at time of discharge. " Allergic Conjunctivitis acute imroved -- Artifical tears ordred -- No pataday or azalastine on formulary. Visine . Eyedrops are ordered. -- On closer examination, blood vessels and patients eyes (especially the right one) appear to be enlarged, left eye has pterygium -- He will need ophthalmology referral Cerebral edema, acute, present on admission improving -- Stroke/CVA treatment as above Mild to Moderate mass effect due to R MCA Infarct- acute, active. Pt is Hemodynamically stable. Neuro exam unchanged since admit. - For reference; Baseline Neuro Exam as of 11/10- Alert and Oriented x 3. Moderate slurred speech. R Facial Droop, Left Hemiparesis. No R sided deficits at all. Sensation intact bilaterally. - frequent q4h Neuro checks, consider upgrade to ICU if more frequent neuro checks or change in mental status. - Per Dr. Davidson"Discussed case with Neuro-Dr. Chand. No Decadron. Get Stat CT Head for any significant change in Neuro exam or if becomes hemodynamically unstable. If mass effect worsens would need urgent transfer to [facility] for possible craniotomy. " -- Unable to reach Dr. Grayson via phone as the clinic line had me on hold for several min. Consider touching base with her again to see if she has any further recs. B/L Carotid Artery Stenosis- poa, active. Per CT- High-grade, 90% to near- complete occlusion of the origin of the right ICA. High-grade, proximally 70-80 % stenosis of the origin the L ICA. - 11/11- spoke with [facility]. They would want to wait 2-3 weeks until CVA stable before performing Carotid Endarterectomy. Instructed to schedule a follow up at [facility]. Agree with dual antiplatelet therapy. --11/16 I have called [facility] if he could be set up for carotid endarterectomy there in stead of [facility], they declined. In fact it seems that because of his anticipated carotid endarterectomy they do not even want him to be in the rehab rehabilitation until it is all cleared. --[facility] was [id number] as above hx of Ground Level Fall, acute, active. Occurred 2 months ago per pt. sustained Left seventh and eighth rib fractures per CXR. Left Pulmonary Contusion. -- Continue to monitor CAD s/p CABG-chronic c/w ASA. Allow for permissive HTN, BP has been low off all HTN Meds. Will hold Metoprolol and resume at low dose once BP allows. DM-chronic - SSI, fingersticks. - Held hm Lantus 40u given low blood sugars. Patient has not been needing correction as he is also not eating much -Hold Metformin. - Hba1c of 6.7 Chronic hypertension worsening -- Restart patient's metoprolol on 11/13, increased to 125 mg PO BID on 11/17 -- Restart lisinopril home med full dose 11/14 -- Added amlodipine 5 mg on 11/16, Increased to 7.5 mg On 11/18 as his BP are still quite elevated. Amlodipine Will take half to 2 days to work, -- He received another dose of IV Lasix 20 mg on 11/17 -- Aldactone 25 mg Daily to start on 11/18 am -- continue to monitor Morbid obesity, chronic ongoing -- Patient is presenting with a challenge to nursing due to large body habitus Code-Full Status- Patient is admitted under inpatient status expected length of stay greater than 2 midnights due to severity of presenting symptoms, risk of adverse events, and complexity of treatment plan. Dispo: Inpt rehab per PT/UR/SW GI Prophylaxis: Proton Pump Inhibitor VTE Prophylaxis: Sub-Q Heparin (Unfractionated) VTE Mechanical Devices: Intermittant Pneumatic CD Resuscitation Status: CPR: Attempt Resuscitation Time spent 30 min Disposition: Patient may be able to discharge to significant versus inpatient rehabilitation on 11/20/16 after 24-hour trial of PEG tube is done GI Prophylaxis: Proton Pump Inhibitor VTE Prophylaxis: Sub-Q Heparin (Unfractionated) VTE Mechanical Devices: Intermittant Pneumatic CD Resuscitation Status: CPR: Attempt Resuscitation Time spent 30 min Spring Schulte DO Nov 18, 2016 22:40
[2016-11-19] VITALS (12 sets, daily range): BP systolic 147–186; BP diastolic 82–99; PULSE 69–100; RESP 17–28; O2SAT 91–98
[2016-11-19] MEDS: Heparin 5,000 Unit/mL Inj SUBQ SCH ×3 (00:04→16:47)
--- NOTE | 2016-11-19 02:24 | ENDO ---
[address] [address] ENDOSCOPY PROCEDURE PATIENT: BLANCA JEFFERS V : 1940 MR#: [id number] ADMIT: 11/09/2016 JOB ID: [id number] DATE OF PROCEDURE: PROCEDURE: Esophagogastroduodenoscopy with percutaneous endoscopic gastrostomy tube placement. INDICATION: Dysphagia. ANESTHESIA: Please see anesthesia note for details regarding ASA classification, Mallampati score, and medications. INSTRUMENT USED: [id number]. PROCEDURE DETAILS: After informed consent was obtained, the patient was brought into the GI suite, where after informed consent a bite block was placed and he was placed in the supine position. Medications were then administered for sedation. The standard EGD scope was inserted through the bite block and advanced without difficulty to the second portion of the duodenum. FINDINGS: 1. Normal appearing duodenal bulb, first and second portion. 2. Normal appearing pylorus. In the antrum body of the stomach, there were multiple erosions noted. 3. Retroflexed views in the gastric body revealed a normal appearing cardia and fundus. Next, we obtained light reflex in the distal portion of the gastric body. This was seen on the anterior abdominal wall. Then, using palpation, we were able to see indentation into the stomach. At this point, lidocaine was injected subcutaneously, as well as we advanced the needle toward the stomach. Following this, using a sterile scalpel, a 1 cm incision was made. Through the incision we introduced the trocar. This was seen piercing the stomach. The trocar was then grasped with a standard snare and then a guidewire was fed into the trocar. The guidewire was then grasped with the standard snare, and then the snare, along with the scope, was removed through the mouth. A 20[employer] percutaneous gastrostomy tube was then attached to the guidewire, and this was then pulled into place without difficulty. The endoscope was then reintroduced back through the bite block and advanced to the distal gastric body, where PEG tube bumper was seen in place. The scope was then withdrawn. IMPRESSION: 1. Successful placement of 20[employer] percutaneous gastrostomy tube. 2. Multiple gastric erosions in the antrum and body of the stomach. RECOMMENDATIONS: 1. Okay to use PEG tube for medications today. Could start PEG tube feeds tomorrow. 2. Recommend PPI daily as he has multiple erosions in the antrum and body of the stomach. COMPLICATIONS: None. ESTIMATED BLOOD LOSS: Less than 5 mL. MTDD
--- NOTE | 2016-11-19 02:26 | NUR ---
NOC Abdominal Pain/Nasopharyngeal Tube Pt pulled out nasopharyngeal tube. Noted blood streak secretions on catheter suction tip. pt does self suctioning. No respiratory distress noted upon assessment. Pt reports of having abdominal pain. notified and ordered Morphine PRN once. Will administer med and will continue to evaluate. Addendum: 11/19/16 at 0441 by JESUS AKHTAR RN Noted fever 38.1 and HTN 185/84 on vital signs. Tepid sponge bath provided. notified. No further orders. Upon reassessment fever went down to 37.1. Addendum: 11/19/16 at 0603 by JESUS AKHTAR RN CPAP/Trilogy set-up by RT.
--- NOTE | 2016-11-19 05:11 | ABG ---
DateTimeAnalyzed 05:04:00 -_ pH ____7.395 - 7.350 7.450 pCO2 ___57.6__ -mmHg 35.0 45.0 pO2 ___69.3__ -mmHg 80.0 100 HCO3- ___34.5__ -mmol/L 22.0 26.0 ABE ____7.9__ -mmol/L -2.0 2.0 tHb ___15.2__ -g/dL 12.0 18.0 O2Hb ___90.8__ -% COHb ____1.3__ -% 1.5 MetHb ____0.8__ -% 0.4 1.5 sO2 ___92.8__ -% 95.0 FIO2 ___50.0__ -% Drawn By AF - Date/Time Notified____ 05:11:00 -_ Liter_Flow ____4.0__ -L/min Oxygen Device 1 __oxymask - Notified By AF - B 761 -mmHg tO2 ___19.4__ -Vol% Noah test _Positive -
[2016-11-19 05:34] LABS: Mean Corpuscular Hemoglobin 29.5 pg (27.0-35.0)
[2016-11-19] MEDS: Insulin LISPRO 300 Unit/3 mL Inj SUBQ SCH ×4 (08:00→22:00)
--- NOTE | 2016-11-19 08:37 | NUR ---
BP Patient NPO for 24 hours, 14 hours post PEG tube placement. BP noted to be increasing. MD notified. Will keep monitoring and will admin IV Rx if needed.
--- NOTE | 2016-11-19 09:55 | PCM.PNMED ---
Subjective Date of Service Nov 19, 2016 Subjective Pulmonary Progress Note Briefly, this is a 76 yo M with hx of CAD, YOSELYN, and 40 year smoking history who presented with Atrial fibrillation and an acute Right MCA thrombotic infarct and a basal ganglia stroke with mild mass effect. TPA was not given due to unknown down time. During his hospitalization, he was noted to have persistent left hemiplegia and dysphagia. He also had worsening of his respiratory status, requiring 3-4L of O2 to maintain saturations. He was not on any O2 prior to this hospitalization. Overnight: No acute events. He continues to be on 3-4L of O2 by oxymask. Hospital Day #11 Today, he was seen in bed while wearing his CPAP mask. He reports he is doing better, although he was sleepy this morning. He is still mildly SOB at baseline but less wheezy. He has been using his Acapella consistently. He had a PEG tube placed and endoscopy procedure yesterday without complications. He continues to be hypertensive. His respiratory status is stable. He is only 2-3 L of O2 by oxymask at rest and 3-4L with exertion. Repeat portable CXR was stable. His ABG this AM showed: DateTimeAnalyzed 05:04:00 -_ pH ____7.395 - 7.350 7.450 pCO2 ___57.6__ -mmHg 35.0 45.0 pO2 ___69.3__ -mmHg 80.0 100 HCO3- ___34.5__ -mmol/L 22.0 26.0 ABE ____7.9__ -mmol/L -2.0 2.0 Exam Vital Signs Vital Sign - Last Date Time Temp Pulse Resp B/P Pulse Ox O2 Delivery O2 Flow Rate FiO2 11/19/16 08:30 91 22 93 OxyMask 2.00 11/19/16 04:19 37.1 186/99 Intake and Output 11/18/16 11/18/16 11/19/16 Cumulative From/Thru 15:00 23:00 07:00 11/09/16 12:55 - 11/19/16 06:12 Intake Total 300 ml 0 ml 51936 ml Output Total 350 ml 425 ml 59204 ml Balance -50 ml -425 ml 2032 ml Intake Oral 0 ml 0 ml 120 ml IV Total 300 ml 20169 ml Tube Feeding 533 ml Tube Irrigant 218 ml Output Urine Total 350 ml 425 ml 74387 ml # Voids 5 # Bowel Movements 0 9 Exam Gen: Obese elderly male who appears in no acute distress, wearing CPAP mask in bed HEENT: PERRL, Right conjunctiva erythematous, Oropharynx mildly dry but without thrush, Neck; Soft, trachea midline, no JVD noted CV: RRR with soft systolic murmur, peripheral pulses intact and equal Resp: Currently on 2L with his CPAP mask. No accessory muscle usage. Mild bibasilar rales noted, but no wheezing today. Abd: Obese, soft, ND, NT, +BS, left sided PEG tube in place, c/d/i MSK: No swollen to tender joints Neuro: Decreased MS of LUE and LLE. Mild left facial droop. Skin: Warm, dry, intact Psych: Mildly somnolent this morning. IVs and Medications Medications Reviewed: Medications were reviewed in detail Lab and Diagnostics Result Diagram: 11/19/1652411/19/16524 X-Rays, CTs and MRIs 11/09/16 MRI BRAIN WITH AND WITHOUT CONTRAST Brain: Scant [id number] midline shift. No intracranial bleeds or masses. No abnormal intracranial enhancement. The brainstem appears normal. Diffusion- weighted images demonstrate definite acute ischemic insults involving the right middle cerebral artery vascular distribution and extending into the basal ganglia on the right, with largest measurements of the area of subacute stroke currently measuring up to 7.2 cm AP and 3.8 cm transverse with a craniocaudad extent of approximately 3.9 cm. Subtle flow abnormalities are present on T2 and postcontrast T1 imaging in the area of thrombus present at the junction of the M1 and M2 segments right middle cerebral artery. Several additional punctate foci of infarction are present involving the anterior tip of the right temporal lobe and also the temporal occipital junction on the right. No chronic ischemic insults. Normal intravascular flow voids are present. IMPRESSION: Moderately large right middle cerebral artery vascular distribution with early mild to moderate mass effect, causing only slight right- to-left deviation of the midline structures, without associated hemorrhage. As discussed above and previously during CT angiographic report there is a thrombus that currently is likely partially obstructing the junction of the right middle cerebral artery M1-M2 junction. A portion of this thrombus is involving the lenticulostriate origins on the right is the presumed explanation for the basal ganglia contiguous infarction in that area and embolic etiology is the likely cause given the presence of several additional punctate foci of subacute ischemic injury involving the anterior and posterior margins of the right temporal lobe Chest Xray Interpretation: IMPRESSION: 1. Focal opacity in the periphery of the left midlung suspicious for pulmonary contusion. 2. Left seventh and eighth rib fractures. Dictated by: Cindi Red MD, PhD on 11/09/2016 at 13:28 Approved by: Cindi Red MD, PhD on 11/09/2016 at 13:30 View: Portable, 1 view Interpretation / Wet Read by: Interpret - Radiologist CT ANGIO HEAD AND NECK: IMPRESSION: 1. Subtle loss of morrow-white matter change involving the right basal ganglia suspicious for acute infarct. 2. No intracranial hemorrhage. 3. Absence of flow in the distal M1 segment and the proximal M2 segments of the right middle cerebral artery compatible presence of thrombus. 4. 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 5. High-grade, proximally 70-80% stenosis of the origin the left internal carotid artery. 6. Moderate stenosis of the origins of the vertebral arteries. 7. Image quality severely degraded by patient motion artifact. 8. Findings telephoned to Dr. Suleman Pedroza on 11/09/2016 at 1557 hrs. 12-lead ECG ECG Interpretation: sinus rate 70 non specific intraventricular conduction delay poor baseline quality multiple PVC's no obvious ST elevation no prior for comparison Time: 12:55 Interpreted by: ED physician Cardiac Echo Impressions Interpretation Summary This study quality was technically difficult with the patient being confused, unable to follow commands, and grabbing the scanning probe throughout exam. The left ventricle is not well visualized but grossly appears normal in size and left ventricular systolic function is probably normal with the ejection fraction grossly estimated to be 60-65% without obvious focal wall motion abnormalities but poor endocardial definition reduces the sensitivity for the detection of such. There is probable borderline concentric left ventricular hypertrophy. The right ventricle is not well visualized but grossly appears normal in size with probable normal systolic function. Pulmonary artery pressures cannot be estimated because of the lack of a measurable TR jet velocity but the IVC suggests a right atrial pressure of 8 mm Hg. The atria are not well visualized but grossly appear normal in size. The interatrial septum grossly appears intact with no evidence for an atrial septal defect and the injection of contrast shows no obvious interatrial shunt but poor image quality significantly reduces the sensitivity for the detection of such. Clinical correlation is recommended. There is no obvious significant valvular heart disease. Assessment & Plan 76 yo M with hx of CAD, YOSELYN, and 40 year smoking history who presented with Atrial fibrillation and an acute Right MCA thrombotic infarct and a basal ganglia stroke with mild mass effect. TPA was not given due to unknown down time. During his hospitalization, he was noted to have persistent left hemiplegia and dysphagia. He also had worsening of his respiratory status, requiring 3-4L of O2 to maintain saturations. He was not on any O2 prior to this hospitalization. Assessment: -Acute hypoxic hypercapnic respiratory failure - likely multifactorial due to the following -Bibasilar Atelectasis -recent R MCA thrombotic infarct with basal ganglia embolic infarct and bilateral ICA narrowing R>L -Paroxysmal Atrial Fibrillation -YOSELYN, non-compliant with home CPAP with PS10. -Obesity, BMI 40 -H/o CAD (s/p CABG) -dysphagia secondary to CVA - status post PEG tube placement 11/18/16 -deconditioning -prior tobacco use (up to 4ppd [id number]) - Quit over 10 years ago -Probably obstructive lung disease Patient with mildly improved respiratory status when using his CPAP mask, but his ABG this morning demonstrated hypercapnia with persistent hypoxia. He likely would benefit from Bipap therapy, so we can transfer him to the 2nd floor to initiate this prior to discharge to any SNF or IPR facility. Plan: -Will transfer to [facility] today to initiate Bipap at 10/5. May be a candidate for Trilogy at home. -Repeat ABG in the AM. Patient should be encouraged to use his BIPAP all night. -Recommend maintaining saturations between 88-92%. Patient likely has some obstructive disease with his long history of tobacco usage. -Continue with Duonebs TID and also encourage Acapella usage after treatments. -Lungs do not appear overly wet, so will hold off on diuresis. -Encourage PT/OT for ambulation -Weight loss encouraged, recommend increasing bed angle to alleviate any obesity hypoventilation difficulties. -If no improvement can consider chest CT next week, Consider roadtesting prior to discharge. -Recommend outpatient PFTs and pulmonology follow up. We appreciate the interesting consult, we will continue to monitor along. Pain Evaluation: Adequate Pain Control GI Prophylaxis: Proton Pump Inhibitor VTE Prophylaxis: Sub-Q Heparin (Unfractionated) VTE Mechanical Devices: Intermittant Pneumatic CD Resuscitation Status: CPR: Attempt Resuscitation Time spent CPT code 87752 Attending Statement Patient with recent CVA and most likely obstructive sleep apnea. Cannot exclude central sleep apnea. Recommend outpatient sleep study monitored by scale technician given the significant comorbidities home sleep study is not warranted. Pt was transferred to begin on BiPAP as this appears to be a more appropriate mode than CPAP. He is more alert after BiPAP was started. I spoke with the patient's nephew and questions asked and answered. Patient seen and examined. Pertinent labs and imaging reviewed. Findings reviewed and discussed with the resident. Amendments made verbally with the resident and/or directly on this document. Agree with the above. Saul Dawson DO Nov 19, 2016 09:42 Ramiro Parikh MD Nov 19, 2016 17:40
[2016-11-19] MEDS: Albuterol-Ipratropium 3 mL Inhalation Solution NEB SCH ×3 (10:25→19:58)
--- NOTE | 2016-11-19 11:03 | NUR ---
I called [facility] today at 1100am and talked to Melinda about setting up with a Bipap or Trilogy upon discharge. According to Melinda if patient goes to a skilled facility the facility themselves usually provides the equipment. If patient goes to a non skilled facility or home patient would more than likely be able to get approval by the insurance company.
--- NOTE | 2016-11-19 11:34 | NUR ---
Transfer 2027 Pt transferred on bed to [facility] at 1128 d/t needing to be on bipap. Pt denied pain. Wilson draining to gravity. (Placed 11/17) All personal belongings left with pt. Nephew Irvin followed pt. Report called to SAUD Rose
--- NOTE | 2016-11-19 11:47 | NUR ---
Social Work-readiness for discharge/bedside rounding: Data:EMR Reviewed. Pt is on day 10 of hospitalization for stroke per H&P. Pt is not medically stable anticipate 1-2 more days. Pt has PEG Tube placed last night and should be starting Tube feeds today. [facility] has accepted pt and would like pt to have successful 24 hours of tube feeds prior to admission. RT informed SW that pt will need a trilogy and wonders if [facility] will supply this for pt or if they will need to order this. ANA placed a call to Parvin-admissions at [facility] [phone] to provide her with update. Parvin is agreeable to plan. SW asked Parvin about the trilogy. Parvin states that our RT would need to set up with trilogy to take with him because the trilogy machines they have only plug into the wall and are not portable. RT at [facility] will also want the settings for the trilogy. ANA called Karishma from RT and left her a message informing her that trilogy would need to be ordered for the pt. ANA spoke with pt and neo Bryan [phone] regarding discharge plan. ANA explained that pt has been formally accepted at [facility] inpt rehab and they want to make sure pt is tolerating tube feeds for 24 hours prior to admission. PT/ST/OT continue to recommend inpt rehab.ANA explained that transportation will be determined closer to discharge but explained that pt will either need to go via BLS or w/c van. ANA explained if pt does goes BLS SW cannot guarantee that insurance will cover the cost of transport, nephew agreeable. AAN also explained that if pt can go via w/c van this would be a private cost to the pt. ANA explained the typical rate and explained that pt would need to pay upfront front. Nephew agreeable to this also. Pt thinks he has a PCP appointment on Friday, nephew asked if SW could cancel this appointment. SW asked [facility] Specialist to call and cancel this appointment. All questions answered for nephew. Pt transferred down to 2nd floor. ANA provided nephew with 2nd floor SW number and provided social work with an update. SW will continue to follow. Assessment:Pt who would benefit from inpt rehab. Plan:[facility] has accepted pt when medically stable. Pt has PEG tube,feeds to start today. Pt will need at least 24 hours of successful tube feeds prior to admission at [facility]. RT to set up trilogy for pt. Trilogy settings will need to be sent to [facility]. SW will continue to follow. LISA Sevilla
--- NOTE | 2016-11-19 12:00 | NUR ---
ST attempted to see pt for dysphagia tx, ST unabledue to pt receiving respiratory tx. Family/relatives present at bedside, attempting to get pt to sign personal check. Case management present, ST informed case mgmt that pt is cognitively impaired per most recent cognitive assessment. Case mgmt advised family that pt is not decisional at this time.
--- NOTE | 2016-11-19 12:08 | NUR ---
Called patient's PCP office to double check there is no appointment on Friday. He is scheduled to see Dr. Dorantes on DEC 13 Updated CYLINDER CHECKER
--- NOTE | 2016-11-19 12:51 | NUR ---
[facility] called [facility] and they said they will accept the trilogy. All paper work set to [employer] for the trilogy. Just got off the phone with Melinda. He said if all goes as planned they should be able to set up the trilogy on Friday. A copy of the trilogy order is under the doctors order tab in the chart.
--- NOTE | 2016-11-19 14:46 | PCM.PNMED ---
Subjective Date of Service Nov 19, 2016 Subjective Underwent PEG tube placement. Right eye itching improving. Blood pressure high this morning but improved after morning medications. Exam Vital Signs Vital Sign - Last Date Time Temp Pulse Resp B/P Pulse Ox O2 Delivery O2 Flow Rate FiO2 11/19/16 11:37 Supplement Oxygen 11/19/16 11:37 37.0 74 20 174/86 98 30 11/19/16 10:25 8.00 Intake and Output 11/18/16 11/18/16 11/19/16 Cumulative From/Thru 15:00 23:00 07:00 11/09/16 12:55 - 11/19/16 06:12 Intake Total 300 ml 0 ml 50914 ml Output Total 350 ml 425 ml 50461 ml Balance -50 ml -425 ml 2032 ml Intake Oral 0 ml 0 ml 120 ml IV Total 300 ml 08334 ml Tube Feeding 533 ml Tube Irrigant 218 ml Output Urine Total 350 ml 425 ml 54500 ml # Voids 5 # Bowel Movements 0 9 Exam Gen: NAD, laying in bed with closed eyes HEENT: improved eye erythema, facial droop improved Heart: RRR, no s3/s4 Lungs: Diminished due to large body habitus Abd: Obese, non tender MSK: He is moving his Left foot more but otherwise no change CN II-XII grossly normal with the exception of weakened facial and shoulder strength on left side. Facial assymetry.power 5/5 on right ,4/5 on left No anxiety or agitation IVs and Medications Medications Reviewed: Medications were reviewed in detail Lab and Diagnostics Result Diagram: 11/19/16 0511/19/16 0525 X-Rays, CTs and MRIs 11/09/16 MRI BRAIN WITH AND WITHOUT CONTRAST Brain: Scant [id number] midline shift. No intracranial bleeds or masses. No abnormal intracranial enhancement. The brainstem appears normal. Diffusion- weighted images demonstrate definite acute ischemic insults involving the right middle cerebral artery vascular distribution and extending into the basal ganglia on the right, with largest measurements of the area of subacute stroke currently measuring up to 7.2 cm AP and 3.8 cm transverse with a craniocaudad extent of approximately 3.9 cm. Subtle flow abnormalities are present on T2 and postcontrast T1 imaging in the area of thrombus present at the junction of the M1 and M2 segments right middle cerebral artery. Several additional punctate foci of infarction are present involving the anterior tip of the right temporal lobe and also the temporal occipital junction on the right. No chronic ischemic insults. Normal intravascular flow voids are present. IMPRESSION: Moderately large right middle cerebral artery vascular distribution with early mild to moderate mass effect, causing only slight right- to-left deviation of the midline structures, without associated hemorrhage. As discussed above and previously during CT angiographic report there is a thrombus that currently is likely partially obstructing the junction of the right middle cerebral artery M1-M2 junction. A portion of this thrombus is involving the lenticulostriate origins on the right is the presumed explanation for the basal ganglia contiguous infarction in that area and embolic etiology is the likely cause given the presence of several additional punctate foci of subacute ischemic injury involving the anterior and posterior margins of the right temporal lobe Chest Xray Interpretation: IMPRESSION: 1. Focal opacity in the periphery of the left midlung suspicious for pulmonary contusion. 2. Left seventh and eighth rib fractures. Dictated by: Cindi Red MD, PhD on 11/09/2016 at 13:28 Approved by: Cindi Red MD, PhD on 11/09/2016 at 13:30 View: Portable, 1 view Interpretation / Wet Read by: Interpret - Radiologist CT ANGIO HEAD AND NECK: IMPRESSION: 1. Subtle loss of morrow-white matter change involving the right basal ganglia suspicious for acute infarct. 2. No intracranial hemorrhage. 3. Absence of flow in the distal M1 segment and the proximal M2 segments of the right middle cerebral artery compatible presence of thrombus. 4. 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 5. High-grade, proximally 70-80% stenosis of the origin the left internal carotid artery. 6. Moderate stenosis of the origins of the vertebral arteries. 7. Image quality severely degraded by patient motion artifact. 8. Findings telephoned to Dr. Suleman Pedroza on 11/09/2016 at 1557 hrs. 12-lead ECG ECG Interpretation: sinus rate 70 non specific intraventricular conduction delay poor baseline quality multiple PVC's no obvious ST elevation no prior for comparison Time: 12:55 Interpreted by: ED physician Cardiac Echo Impressions Interpretation Summary This study quality was technically difficult with the patient being confused, unable to follow commands, and grabbing the scanning probe throughout exam. The left ventricle is not well visualized but grossly appears normal in size and left ventricular systolic function is probably normal with the ejection fraction grossly estimated to be 60-65% without obvious focal wall motion abnormalities but poor endocardial definition reduces the sensitivity for the detection of such. There is probable borderline concentric left ventricular hypertrophy. The right ventricle is not well visualized but grossly appears normal in size with probable normal systolic function. Pulmonary artery pressures cannot be estimated because of the lack of a measurable TR jet velocity but the IVC suggests a right atrial pressure of 8 mm Hg. The atria are not well visualized but grossly appear normal in size. The interatrial septum grossly appears intact with no evidence for an atrial septal defect and the injection of contrast shows no obvious interatrial shunt but poor image quality significantly reduces the sensitivity for the detection of such. Clinical correlation is recommended. There is no obvious significant valvular heart disease. Assessment & Plan Patient is a 76 year old male with a history of CAD and DM who presents to the ED via EMS complaining of L sided paralysis upon waking this morning with CTA- finding of Acute infarct Right Basal Ganglia right middle cerebral artery compatible presence of thrombus. 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 MRI Brain- shows early mild to moderate mass effect. Per MRI/CTA- Thrombus that likely partially obstructing the junction of the right MCA at M1-M2 junction. Presented outside of tPA window. ED called [facility], not a candidate for clot retrieval. Mention of Afib in prior notes but no Afib confirmed. no prior history of Afib. Patient's telemetry discontinued on 11/14 . unknown if he has been in Afib or SR per carpet technician .initial EKG SR Allowed permissive HTN first 48 hrs, 11/10-Echo- EF 60-65%, atria are not well visualized but grossly appear normal in size. - Lipid Panel- uremarkable. - Consulted Neuro- Dr. Chand. Her initial Recs- med management w/ dual anti- platelet therapy. ASA/Plavix for 90 days. High dose Atorvastatin. 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 - PT recs Inpt rehab. - Can follow up with Dr. Chand in 2-3 weeks. -- PEG tube placed onn 11/18 after he was off of Plavix for 5 days for the procedure, -- 11/18 contacted [facility] in the am for a possible transfer for carotid endarterectomy, talked to the vascular surgery. They do not recommend endarterectomy with patient's modified tex functional score of 4-5. -eventually will discharge to [facility] inpatient rehab . carotid endarterectomy to be arranged outpatient # Acute on chronic hypoxic and hypercapnic respiratory failure , chronic present on admission -Multifactorial ,YOSELYN ,atelectasis, central due to acute stroke -- Patient continues to need 2-4 L of oxygen via nasal cannula -- ABG with hypercapnea and hypoxia . Pulm consulted and tried CPAP o/n ,they transferred patient to 2 nd floor for BIPAP trial and subsequent Triology prescription after workup -- encourage incentive spirometry -- Pulmonology ordered a dose of furosemide 20 mg IV to address elevated BNP and CXR congestion -With smoking history would continue duonebs qid for now. Eventual outpt PFT's -If no improvement may consider chest CT , he may need O2 up on discharge per pulm .may need more diuresis # Allergic Conjunctivitis acute imroved -- Artifical tears ordred -- No pataday or azalastine on formulary. Visine . Eyedrops are ordered. # Mild to Moderate mass effect /cerebral edema due to R MCA Infarct- acute, active. Pt is Hemodynamically stable. Neuro exam unchanged since admit. - For reference; Baseline Neuro Exam as of 11/10- Alert and Oriented x 3. Moderate slurred speech. R Facial Droop, Left Hemiparesis power 4/5 LLE 3+ LUE. No R sided deficits at all. Sensation intact bilaterally. - frequent q4h Neuro checks, consider upgrade to ICU if more frequent neuro checks or change in mental status. - Per Dr. Davidson"Discussed case with Neuro-Dr. Chand. No Decadron. Get Stat CT Head for any significant change in Neuro exam or if becomes hemodynamically unstable. If mass effect worsens would need urgent transfer to [facility] for possible craniotomy. " # B/L Carotid Artery Stenosis- poa, active. Per CT- High-grade, 90% to near- complete occlusion of the origin of the right ICA. High-grade, proximally 70-80 % stenosis of the origin the L ICA. - 11/11- spoke with [facility]. They would want to wait 2-3 weeks until CVA stable before performing Carotid Endarterectomy. Instructed to schedule a follow up at [facility]. Agree with dual antiplatelet therapy. -Carotid Endarterectomy outpatient.this may be arranged at [facility] or [facility] # hx of Ground Level Fall, acute, active. Occurred 2 months ago per pt. sustained Left seventh and eighth rib fractures per CXR. Left Pulmonary Contusion. -- Continue to monitor # pruitt inserted few days ago due to immobility per RN -placed RN communication order for voiding trial tomorrow.keep tonight if incase pulm give him more IV lasx tonight .also spoke with RN about that. he is still max assist but should be able to use urinal # CAD s/p CABG-chronic c/w ASA. Allow for permissive HTN, BP has been low off all HTN Meds. Will hold Metoprolol and resume at low dose once BP allows. # DM-chronic - SSI, fingersticks. - Held hm Lantus 40u given low blood sugars. Patient has not been needing correction as he is also not eating much.only requiring 20 U HS currently.may need to discharge a lower dose of insulin upon discharge -Hold Metformin. - Hba1c of 6.7 # Chronic hypertension worsening -- Restart patient's metoprolol on 11/13, increased to 125 mg PO BID on 11/17 -- Restart lisinopril home med full dose 11/14 -- Added amlodipine 5 mg on 11/16, Increased to 7.5 mg On 11/18 as his BP are still quite elevated. Amlodipine Will take half to 2 days to work, -- He received another dose of IV Lasix 20 mg on 11/17 -- Aldactone 25 mg Daily to start on 11/18 am -- continue to monitor # Morbid obesity, chronic ongoing -- Patient is presenting with a challenge to nursing due to large body habitus Code-Full Status- Patient is admitted under inpatient status expected length of stay greater than 2 midnights due to severity of presenting symptoms, risk of adverse events, and complexity of treatment plan. Dispo: Inpt rehab at [place] per PT/UR/SW GI Prophylaxis: Proton Pump Inhibitor VTE Prophylaxis: Sub-Q Heparin (Unfractionated) VTE Mechanical Devices: Intermittant Pneumatic CD Resuscitation Status: CPR: Attempt Resuscitation Kwame Rajput MD Nov 19, 2016 14:46 Code-Full Status- Patient is admitted under inpatient status expected length of stay greater than 2 midnights due to severity of presenting symptoms, risk of adverse events, and complexity of treatment plan. Dispo: Inpt rehab per PT/UR/SW GI Prophylaxis: Proton Pump Inhibitor VTE Prophylaxis: Sub-Q Heparin (Unfractionated) VTE Mechanical Devices: Intermittant Pneumatic CD Resuscitation Status: CPR: Attempt Resuscitation Kwame Rajput MD Nov 19, 2016 14:46 adverse events, and complexity of treatment plan. Dispo: Inpt rehab per PT/UR/SW GI Prophylaxis: Proton Pump Inhibitor VTE Prophylaxis: Sub-Q Heparin (Unfractionated) VTE Mechanical Devices: Intermittant Pneumatic CD Resuscitation Status: CPR: Attempt Resuscitation Kwame Rajput MD Nov 19, 2016 14:46
--- NOTE | 2016-11-19 14:46 | DRSVH ---
PROCEDURE: X-RAY CHEST ONE VIEW ([id number]) INDICATIONS: SHORT OF BREATH TECHNIQUE: One view of the chest was acquired. COMPARISON: [facility], CR, CHEST 2VW, 09/15/2006, 15:05. [facility], CR, X R CHEST 1VW (PORTABLE), 11/11/2016, 18:11. [facility], CR, XR CHEST 1VW (PORTABLE), 2016, 22:18. FINDINGS: Surgical changes and devices: Median sternotomy wires. Lungs and pleura: Diffuse, widespread bilateral pulmonary interstitial and bibasilar air space opaci ties are present. Mediastinum: Mediastinal contours appear normal. Heart size is normal. Bones and chest wall: No suspicious bony lesions. Overlying soft tissues appear unremarkable. Mult iple healed left posterior-lateral rib fracture is redemonstrated. IMPRESSION: 1. Pulmonary edema and/or bibasilar bilateral pneumonia similar to prior examination. Dictated by: Elijah Chin [facility] Interpreted: Logan Navarro MD on 11/19/2016 at 8:21 Approved by: Logan Navarro M.D. on 11/19/2016 at 14:40
[2016-11-19] MEDS ORDERED: Furosemide 10 mg/mL 4 mL Inj IVPUSH ONE (15:25)
--- NOTE | 2016-11-19 15:29 | NUR ---
NUTRITION FOLLOW-UP: ASSESS: 76 YO male admitted with stroke. NG tube placed 11/15 for nutrition support as pt has been unable to advance his diet past stimulation. TF rate was running at 30ml before NGT was pulled. Pt had PEG placed 11/18. At this time, unsure if pt has been cleared to start feedings via PEG. RN is aware of TF formula and rate if pt is able to start TF. PMHx: CAD, DM. LABS: Reviewed. Na 147, CO2 32, technical assoc .64, Glu 141, Alb 3.5 MEDS: Reviewed. GI: BM x 1 11/18 CURRENT WT: 132.2 kg, BMI 40.6 kg/m2. Admit weight: 132.3 kg. IBW: 78.2 kg. Adj BW: 91.7 kg. DIET: NPO per ST EST. NEEDS: 1504-5438 kcals (25-30 kcals/kg Adj. BW), 110-140 g protein (1.2-1.5 g/kg Adj. BW) NUTRITION DIAGNOSIS: 1) Chewing / Swallowing difficulties related to motor causes (stroke) as evidenced by inability to tolerate diet beyond stimulation texture. ST following - PERSISTS. 2) Inadequate oral intake related to inability to consume sufficient energy as evidenced by NPO/stimulation diet x 9 days - PERSISTS. NUTRITION INTERVENTION: 1) Tube feeding orders placed in chart as follows, for advancement s/p PEG placement: Glucerna 1.5 at 25ml/hr advancing 10ml q 6 hrs to goal rate of 60 mL/hr to provide 2070 kcals and 114 g protein per day Recommend H2O flush dose of 30 ml every 4 hours while pt is on IV fluids. Once IV fluids are stopped, recommend flush dose of 50 mL every 1 hours to provide a total of 2247 ML free H2O per day from TF and flushes. 2) Pt at this time is NPO per ST. If pt continues to be NPO per ST, will increase TF goal rate to 70ml/hr x23 hrs to provide 2415kcal and 132g pro (100% of estimated needs) PLAN: TF start/vadim, NPO, ST, wt, GI, labs, POC, nutrition status. Will continue to monitor per high nutrition risk guidelines
--- NOTE | 2016-11-19 16:12 | NUR ---
ISABELLA REMOVED pt complaining about pruitt cath. Pruitt removed.
[2016-11-19] MEDS: Insulin GLARgine 100 Unit/mL Syringe SUBQ SCH (21:00)
[2016-11-20] VITALS (10 sets, daily range): BP systolic 135–168; BP diastolic 80–98; PULSE 68–95; RESP 16–28; O2SAT 87–98
[2016-11-20] MEDS: Heparin 5,000 Unit/mL Inj SUBQ SCH ×3 (00:52→16:26)
--- NOTE | 2016-11-20 01:22 | NUR ---
Tele/Metoprolol/Peg Tube Peg Tube Dressing CDI. flushes freely, administered PM PO Meds through it , flushed w 35 Ml tap water. Not on telemetry, VS within base for patient. A&Ox2, slightly random socially, asking when the ambulance will arrive. Verified Metoprolol Dose W charge Nurse , dosage has been increased from 100 to 125 Mg. weakness in left extremities. Bi-Pap 12/5 3 L O2 HOB 30 degrees
--- NOTE | 2016-11-20 04:50 | ABG ---
DateTimeAnalyzed 04:42:00 -_ pH ____7.396 - 7.350 7.450 pCO2 ___60.1__ -mmHg 35.0 45.0 pO2 ___72.5__ -mmHg 80.0 100 HCO3- ___36.1__ -mmol/L 22.0 26.0 ABE ____9.1__ -mmol/L -2.0 2.0 tHb ___15.4__ -g/dL 12.0 18.0 O2Hb ___91.9__ -% COHb ____1.1__ -% 1.5 MetHb ____0.7__ -% 0.4 1.5 sO2 ___93.7__ -% 95.0 FIO2 ___30.0__ -% Drawn By AF - Date/Time Notified____ 04:49:00 -_ Spontaneous_RR ___26.0__ -b/min Oxygen Device 1 ____BIPAP - Notified By AF - Notified Whom Raphael Rick RN -___ B 760 -mmHg tO2 ___19.9__ -Vol% Noah test _Positive -
[2016-11-20] MEDS: Insulin LISPRO 300 Unit/3 mL Inj SUBQ SCH ×4 (08:00→21:35)
[2016-11-20] MEDS: Albuterol-Ipratropium 3 mL Inhalation Solution NEB SCH ×3 (10:59→20:32)
--- NOTE | 2016-11-20 11:44 | NUR ---
Resp: Pt on oxymask at 3L at start of shift, unable to maintain O2 sats greater than 85%. Bipap restarted with O2 sats 95-98%. Approx 2 hours later, trialed oxymask at 4L, unable to maintain O2 sats greater than 85%. Bipap restarted again. Pt coughing intermittently, large amount of dried mishel mucous suctioned by RT. Continuous pulse ox in place, care ongoing.
--- NOTE | 2016-11-20 14:22 | NUR ---
NUTRITION FOLLOW-UP: ASSESS: 76 YO male admitted with stroke. NG tube placed 11/15 for nutrition support as pt has been unable to advance his diet past stimulation. Pt was tolerating ~75% of stimulation diet and TF rate was running at 30ml before NGT was pulled. Pt had PEG placed 11/18. Pt has been cleared to start TF on 11/20. RN is aware of formula and rate to start TF at. Pt at this time is NPO per ST. PMHx: CAD, DM. LABS: Reviewed. (11/19) Na 147, CO2 32, electric stop installer .64, Glu 141, Alb 3.5 MEDS: Reviewed. GI: BM x 1 11/20 CURRENT WT: 132.5kg, BMI 40.7 kg/m2. Admit weight: 132.3 kg. IBW: 78.2 kg. Adj BW: 91.7 kg. DIET: NPO per ST EST. NEEDS: Kcals: 4089-6143 kcals (25-30 kcals/kg Adj. BW), Protein: 110-140 g protein (1.2-1.5 g/kg Adj. BW) Fluids: 2300-2750ml/day (1ml/kcal) NUTRITION DIAGNOSIS: 1) Chewing / Swallowing difficulties related to motor causes (stroke) as evidenced by inability to tolerate diet beyond stimulation texture. ST following - PERSISTS. 2) Inadequate oral intake related to inability to consume sufficient energy as evidenced by NPO/stimulation diet x 9 days - PERSISTS. NUTRITION INTERVENTION: 1) Tube feeding orders placed in chart as follows, for advancement s/p PEG placement: Glucerna 1.5 at 25ml/hr advancing 10ml q 6 hrs to goal rate of 60 mL/hr to provide 2070 kcals and 114 g protein per day Recommend H2O flush dose of 30 ml every 4 hours while pt is on IV fluids. Once IV fluids are stopped, recommend flush dose of 50 mL every 1 hours to provide a total of 2247 ML free H2O per day from TF and flushes. 2) Pt at this time is NPO per ST. If pt continues to be NPO per ST, will increase TF goal rate to 70ml/hr x23 hrs to provide 2415kcal and 132g pro (100% of estimated needs) MONITOR/EVAL: TF start/vadim, NPO, ST, wt, GI, labs, POC, nutrition status. Will continue to monitor per high nutrition risk guidelines
--- NOTE | 2016-11-20 15:24 | NUR ---
O2 goals: Per Pulmonology, pt's O2 goal is 88%.
--- NOTE | 2016-11-20 15:39 | PCM.PNMED ---
Subjective Date of Service Nov 20, 2016 Subjective Patient is a 76 year old male with a history of CAD and DM who presents to the ED via EMS complaining of L sided paralysis upon waking this morning with CTA- finding of Acute infarct Right Basal Ganglia right middle cerebral artery compatible presence of thrombus. Patient was seen and examined by me this morning. Patient is alert, awake and oriented X3. He was on BiPap with FiO2 of 30%. He continues to have SOB but improved from yesterday. In addition, he appears to be less lethargic/ somnolent. He states that he feels somewhat sore this morning after having his pruitt catheter removed yesterday. He notes that he has been urinating without complications on the depends. He is accompanied by his nephew who is his DPOA. Nephew notes that the patient has been improving greatly since the onset of the stroke. Speech and physical functioning have improved. Patient appears to be decisional. On ROS, he denies headaches, visual changes, chest pain, nausea, vomiting and abdominal pain. He continues to have weakness in left extremities. There were no acute events overnight. Exam Vital Signs Vital Sign - Last Date Time Temp Pulse Resp B/P Pulse Ox O2 Delivery O2 Flow Rate FiO2 11/20/16 04:36 5 23 96 30 11/20/16 02:54 36.7 168/92 BiPAP 11/19/16 19:46 3.00 Intake and Output 11/19/16 11/19/16 11/20/16 Cumulative From/Thru 15:00 23:00 07:00 11/09/16 12:55 - 11/20/16 05:15 Intake Total 200 ml 1040 ml 0 ml 95331 ml Output Total 1250 ml 22412 ml Balance 200 ml -210 ml 0 ml 2022 ml Intake Oral 1040 ml 0 ml 1160 ml IV Total 24422 ml Tube Feeding 533 ml Tube Irrigant 200 ml 418 ml Output Urine Total 1100 ml 19367 ml Stool Total 150 ml 150 ml # Voids 5 10 # Bowel Movements 1 10 Exam General: Patient is lying comfortably on bed, AAOX3, not in acute distress, cooperative and pleasant. HEENT: head normocephalic , PERRLA, EOMI, no scleral icterus, noninjected conjunctiva, Bipap mask on face Neck: neck supple, non-tender, no lymphadenopathy, trachea midline, no JVD CV: regular rate and rhythm, s1 and s2 heard, radial pulses equal bilaterally, no rubs murmurs or gallops, no edema Lungs: diminished lung sounds bilaterally, mild increased work of breathing Abdomen: normoactive bowel sounds on 4Q, soft, non-distended, non-tender to palpation, no organomegally, PEG tube in place Skin: warm and dry Musculoskeletal: decreased UE and LE muscle strength on left side. However, patient is able to have movement, which appears to be improved per nephew Neuro: positive for slight facial droop, decreased muscle strength and ROM of left UE and LE, no sensation of left lower extremity Psych: Normal mood and affect IVs and Medications Medications Reviewed: Medications were reviewed in detail Lab and Diagnostics Microbiology 11/12/16 Sputum Quality Screen - Final, Complete 11/12/16 Sputum Culture - Final, Complete MODERATE NORMAL TINO PRESENT Microbiology 11/12/16 Sputum Quality Screen - Final, Complete 11/12/16 Sputum Culture - Final, Complete MODERATE NORMAL TINO PRESENT Result Diagram: 11/19/1625 11/19/16 0525 X-Rays, CTs and MRIs 11/09/16 MRI BRAIN WITH AND WITHOUT CONTRAST Brain: Scant [id number] midline shift. No intracranial bleeds or masses. No abnormal intracranial enhancement. The brainstem appears normal. Diffusion- weighted images demonstrate definite acute ischemic insults involving the right middle cerebral artery vascular distribution and extending into the basal ganglia on the right, with largest measurements of the area of subacute stroke currently measuring up to 7.2 cm AP and 3.8 cm transverse with a craniocaudad extent of approximately 3.9 cm. Subtle flow abnormalities are present on T2 and postcontrast T1 imaging in the area of thrombus present at the junction of the M1 and M2 segments right middle cerebral artery. Several additional punctate foci of infarction are present involving the anterior tip of the right temporal lobe and also the temporal occipital junction on the right. No chronic ischemic insults. Normal intravascular flow voids are present. IMPRESSION: Moderately large right middle cerebral artery vascular distribution with early mild to moderate mass effect, causing only slight right- to-left deviation of the midline structures, without associated hemorrhage. As discussed above and previously during CT angiographic report there is a thrombus that currently is likely partially obstructing the junction of the right middle cerebral artery M1-M2 junction. A portion of this thrombus is involving the lenticulostriate origins on the right is the presumed explanation for the basal ganglia contiguous infarction in that area and embolic etiology is the likely cause given the presence of several additional punctate foci of subacute ischemic injury involving the anterior and posterior margins of the right temporal lobe Chest Xray Interpretation: IMPRESSION: 1. Focal opacity in the periphery of the left midlung suspicious for pulmonary contusion. 2. Left seventh and eighth rib fractures. Dictated by: Cindi Red MD, PhD on 11/09/2016 at 13:28 Approved by: Cindi Red MD, PhD on 11/09/2016 at 13:30 View: Portable, 1 view Interpretation / Wet Read by: Interpret - Radiologist CT ANGIO HEAD AND NECK: IMPRESSION: 1. Subtle loss of morrow-white matter change involving the right basal ganglia suspicious for acute infarct. 2. No intracranial hemorrhage. 3. Absence of flow in the distal M1 segment and the proximal M2 segments of the right middle cerebral artery compatible presence of thrombus. 4. 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 5. High-grade, proximally 70-80% stenosis of the origin the left internal carotid artery. 6. Moderate stenosis of the origins of the vertebral arteries. 7. Image quality severely degraded by patient motion artifact. 8. Findings telephoned to Dr. Suleman Pedroza on 11/09/2016 at 1557 hrs. 12-lead ECG ECG Interpretation: sinus rate 70 non specific intraventricular conduction delay poor baseline quality multiple PVC's no obvious ST elevation no prior for comparison Time: 12:55 Interpreted by: ED physician Cardiac Echo Impressions Interpretation Summary This study quality was technically difficult with the patient being confused, unable to follow commands, and grabbing the scanning probe throughout exam. The left ventricle is not well visualized but grossly appears normal in size and left ventricular systolic function is probably normal with the ejection fraction grossly estimated to be 60-65% without obvious focal wall motion abnormalities but poor endocardial definition reduces the sensitivity for the detection of such. There is probable borderline concentric left ventricular hypertrophy. The right ventricle is not well visualized but grossly appears normal in size with probable normal systolic function. Pulmonary artery pressures cannot be estimated because of the lack of a measurable TR jet velocity but the IVC suggests a right atrial pressure of 8 mm Hg. The atria are not well visualized but grossly appear normal in size. The interatrial septum grossly appears intact with no evidence for an atrial septal defect and the injection of contrast shows no obvious interatrial shunt but poor image quality significantly reduces the sensitivity for the detection of such. Clinical correlation is recommended. There is no obvious significant valvular heart disease. Additional Diagnostics DateTimeAnalyzed 04:42:00 -_ pH ____7.396 - 7.350 7.450 pCO2 ___60.1__ -mmHg 35.0 45.0 pO2 ___72.5__ -mmHg 80.0 100 HCO3- ___36.1__ -mmol/L 22.0 26.0 ABE ____9.1__ -mmol/L -2.0 2.0 tHb ___15.4__ -g/dL 12.0 18.0 O2Hb ___91.9__ -% COHb ____1.1__ -% 1.5 MetHb ____0.7__ -% 0.4 1.5 sO2 ___93.7__ -% 95.0 FIO2 ___30.0__ -% Drawn By AF - Date/Time Notified____ 04:49:00 -_ Spontaneous_RR ___26.0__ -b/min Oxygen Device 1 ____BIPAP - Notified By AF - Notified Whom Raphael Rick RN -___ B 760 -mmHg tO2 ___19.9__ -Vol% Noah test _Positive - Assessment & Plan Patient is a 76 year old male with a history of CAD and DM who presents to the ED via EMS complaining of L sided paralysis upon waking this morning with CTA- finding of Acute infarct Right Basal Ganglia right middle cerebral artery compatible presence of thrombus. 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 MRI Brain- shows early mild to moderate mass effect. Per MRI/CTA- Thrombus that likely partially obstructing the junction of the right MCA at M1-M2 junction. Presented outside of tPA window. ED called [place] [facility], not a candidate for clot retrieval. Mention of Afib in prior notes but no Afib confirmed. no prior history of Afib. Patient's telemetry discontinued on 11/14 . unknown if he has been in Afib or SR per technical services rep .initial EKG SR Allowed permissive HTN first 48 hrs, 11/10-Echo- EF 60-65%, atria are not well visualized but grossly appear normal in size. - Lipid Panel- uremarkable. - Consulted Neuro- Dr. Chand. Her initial Recs- med management w/ dual anti- platelet therapy. ASA/Plavix for 90 days. High dose Atorvastatin. 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 - PT recs Inpt rehab. - Can follow up with Dr. Chand in 2-3 weeks. -- PEG tube placed onn 11/18 after he was off of Plavix for 5 days for the procedure, -- 11/18 contacted [place] in the am for a possible transfer for carotid endarterectomy, talked to the vascular surgery. They do not recommend endarterectomy with patient's modified tex functional score of 4-5. -eventually will discharge to [facility] inpatient rehab . carotid endarterectomy to be arranged outpatient likely on 11/21 if patient's respiratory status improves # Acute on chronic hypoxic and hypercapnic respiratory failure , chronic present on admission -Multifactorial ,YOSELYN ,atelectasis, central due to acute stroke -- Patient continues to need 2-4 L of oxygen via nasal cannula -- ABG with hypercapnea and hypoxia . Pulm consulted and tried CPAP o/n ,they transferred patient to 2 nd floor for BIPAP trial and subsequent Triology prescription after workup -- encourage incentive spirometry -- Pulmonology ordered a dose of furosemide 20 mg IV to address elevated BNP and CXR congestion -With smoking history would continue duonebs qid for now. Eventual outpt PFT's -If no improvement may consider chest CT , he may need O2 up on discharge per pulm .may need more diuresis -11/20 Per pulmonology, we will attempt to wean off BiPap and repeat ABG in 4 hours to see if patient truly needs Trilogy # Allergic Conjunctivitis acute improved -- Artifical tears ordred -- No pataday or azalastine on formulary. Visine . Eyedrops are ordered. # Mild to Moderate mass effect /cerebral edema due to R MCA Infarct- acute, active. Pt is Hemodynamically stable. Neuro exam unchanged since admit. - For reference; Baseline Neuro Exam as of 11/10- Alert and Oriented x 3. Moderate slurred speech. R Facial Droop, Left Hemiparesis power 4/5 LLE 3+ LUE. No R sided deficits at all. Sensation intact bilaterally. - frequent q4h Neuro checks, consider upgrade to ICU if more frequent neuro checks or change in mental status. - Per Dr. Davidson"Discussed case with Neuro-Dr. Chand. No Decadron. Get Stat CT Head for any significant change in Neuro exam or if becomes hemodynamically unstable. If mass effect worsens would need urgent transfer to [place] for possible craniotomy. " # B/L Carotid Artery Stenosis- poa, active. Per CT- High-grade, 90% to near- complete occlusion of the origin of the right ICA. High-grade, proximally 70-80 % stenosis of the origin the L ICA. - 11/11- spoke with [place] Vascular Surgeon. They would want to wait 2-3 weeks until CVA stable before performing Carotid Endarterectomy. Instructed to schedule a follow up at [facility]. Agree with dual antiplatelet therapy. -Carotid Endarterectomy outpatient.this may be arranged at [facility] or [place] # hx of Ground Level Fall, acute, active. Occurred 2 months ago per pt. sustained Left seventh and eighth rib fractures per CXR. Left Pulmonary Contusion. -- Continue to monitor # pruitt inserted few days ago due to immobility per RN -pruitt was discontinued on 11/19/16 # CAD s/p CABG-chronic c/w ASA. Allow for permissive HTN, BP has been low off all HTN Meds. Will hold Metoprolol and resume at low dose once BP allows. # DM-chronic - SSI, fingersticks. - Held hm Lantus 40u given low blood sugars. Patient has not been needing correction as he is also not eating much.only requiring 20 U HS currently.may need to discharge a lower dose of insulin upon discharge -Hold Metformin. - Hba1c of 6.7 # Chronic hypertension worsening -- Restart patient's metoprolol on 11/13, increased to 125 mg PO BID on 11/17 -- Restart lisinopril home med full dose 11/14 -- Added amlodipine 5 mg on 11/16, Increased to 7.5 mg On 11/18 as his BP are still quite elevated. Amlodipine Will take half to 2 days to work, -- He received another dose of IV Lasix 20 mg on 11/17 -- Aldactone 25 mg Daily to start on 11/18 am -- continue to monitor # Morbid obesity, chronic ongoing -- Patient is presenting with a challenge to nursing due to large body habitus Code-Full Dispo: Inpt rehab at [place] per PT/UR/SW likely tomorrow if respiratory status is improved and stable. GI Prophylaxis: Proton Pump Inhibitor VTE Prophylaxis: Sub-Q Heparin (Unfractionated) VTE Mechanical Devices: Intermittant Pneumatic CD Resuscitation Status: CPR: Attempt Resuscitation Time spent 35 minutes Attending Statement I have seen and evaluated patient at bedside in addition to directly supervising care provided by resident physician on 11/20/2016. I agree with above documentation. Shanda Bueno DO Nov 20, 2016 07:45 Tom Britton DO Nov 20, 2016 21:51
--- NOTE | 2016-11-20 16:02 | ABG ---
DateTimeAnalyzed 15:54:00 -_ pH ____7.409 - 7.350 7.450 pCO2 ___56.6__ -mmHg 35.0 45.0 pO2 ___49.0__ -mmHg 80.0 100 HCO3- ___35.1__ -mmol/L 22.0 26.0 ABE ____8.6__ -mmol/L -2.0 2.0 tHb ___15.5__ -g/dL 12.0 18.0 O2Hb ___81.0__ -% COHb ____1.2__ -% 1.5 MetHb ____0.7__ -% 0.4 1.5 sO2 ___82.6__ -% 95.0 FIO2 ___21.0__ -% Drawn By gj - Date/Time Notified____ 16:02:00 -_ Spontaneous_RR ___20.0__ -b/min Oxygen Device 1 _ROOM AIR - Notified By gj - Notified Whom __GIFFORD - B 758 -mmHg tO2 ___17.6__ -Vol% Noah test _Positive -
--- NOTE | 2016-11-20 16:17 | PCM.PNMED ---
Subjective Date of Service Nov 20, 2016 Subjective No complaints of chest pain or dyspnea at rest. Afebrile. No witnessed aspiration. Tolerating bipap.01/28 although prefers home nasal pillows mask. ROS: Gen Fatigue CV no palpitations GI no abd pain FHSHx: ex smoker Exam Vital Signs Vital Sign - Last Date Time Temp Pulse Resp B/P Pulse Ox O2 Delivery O2 Flow Rate FiO2 11/20/16 15:47 71 20 87 Room Air 8.00 11/20/16 10:59 30 11/20/16 08:04 36.1 137/85 Intake and Output 11/19/16 11/19/16 11/20/16 Cumulative From/Thru 15:00 23:00 07:00 11/09/16 12:55 - 11/20/16 05:15 Intake Total 200 ml 1040 ml 0 ml 14842 ml Output Total 1250 ml 38789 ml Balance 200 ml -210 ml 0 ml 2022 ml Intake Oral 1040 ml 0 ml 1160 ml IV Total 05952 ml Tube Feeding 533 ml Tube Irrigant 200 ml 418 ml Output Urine Total 1100 ml 67133 ml Stool Total 150 ml 150 ml # Voids 5 10 # Bowel Movements 1 10 Lab and Diagnostics Result Diagram: 11/19/16 0525 11/19/16 0525 X-Rays, CTs and MRIs 11/09/16 MRI BRAIN WITH AND WITHOUT CONTRAST Brain: Scant [id number] midline shift. No intracranial bleeds or masses. No abnormal intracranial enhancement. The brainstem appears normal. Diffusion- weighted images demonstrate definite acute ischemic insults involving the right middle cerebral artery vascular distribution and extending into the basal ganglia on the right, with largest measurements of the area of subacute stroke currently measuring up to 7.2 cm AP and 3.8 cm transverse with a craniocaudad extent of approximately 3.9 cm. Subtle flow abnormalities are present on T2 and postcontrast T1 imaging in the area of thrombus present at the junction of the M1 and M2 segments right middle cerebral artery. Several additional punctate foci of infarction are present involving the anterior tip of the right temporal lobe and also the temporal occipital junction on the right. No chronic ischemic insults. Normal intravascular flow voids are present. IMPRESSION: Moderately large right middle cerebral artery vascular distribution with early mild to moderate mass effect, causing only slight right- to-left deviation of the midline structures, without associated hemorrhage. As discussed above and previously during CT angiographic report there is a thrombus that currently is likely partially obstructing the junction of the right middle cerebral artery M1-M2 junction. A portion of this thrombus is involving the lenticulostriate origins on the right is the presumed explanation for the basal ganglia contiguous infarction in that area and embolic etiology is the likely cause given the presence of several additional punctate foci of subacute ischemic injury involving the anterior and posterior margins of the right temporal lobe Chest Xray Interpretation: IMPRESSION: 1. Focal opacity in the periphery of the left midlung suspicious for pulmonary contusion. 2. Left seventh and eighth rib fractures. Dictated by: Cnidi Red MD, PhD on 11/09/2016 at 13:28 Approved by: Cindi Red MD, PhD on 11/09/2016 at 13:30 View: Portable, 1 view Interpretation / Wet Read by: Interpret - Radiologist CT ANGIO HEAD AND NECK: IMPRESSION: 1. Subtle loss of morrow-white matter change involving the right basal ganglia suspicious for acute infarct. 2. No intracranial hemorrhage. 3. Absence of flow in the distal M1 segment and the proximal M2 segments of the right middle cerebral artery compatible presence of thrombus. 4. 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 5. High-grade, proximally 70-80% stenosis of the origin the left internal carotid artery. 6. Moderate stenosis of the origins of the vertebral arteries. 7. Image quality severely degraded by patient motion artifact. 8. Findings telephoned to Dr. Suleman Pedroza on 11/09/2016 at 1557 hrs. 12-lead ECG ECG Interpretation: sinus rate 70 non specific intraventricular conduction delay poor baseline quality multiple PVC's no obvious ST elevation no prior for comparison Time: 12:55 Interpreted by: ED physician Cardiac Echo Impressions Interpretation Summary This study quality was technically difficult with the patient being confused, unable to follow commands, and grabbing the scanning probe throughout exam. The left ventricle is not well visualized but grossly appears normal in size and left ventricular systolic function is probably normal with the ejection fraction grossly estimated to be 60-65% without obvious focal wall motion abnormalities but poor endocardial definition reduces the sensitivity for the detection of such. There is probable borderline concentric left ventricular hypertrophy. The right ventricle is not well visualized but grossly appears normal in size with probable normal systolic function. Pulmonary artery pressures cannot be estimated because of the lack of a measurable TR jet velocity but the IVC suggests a right atrial pressure of 8 mm Hg. The atria are not well visualized but grossly appear normal in size. The interatrial septum grossly appears intact with no evidence for an atrial septal defect and the injection of contrast shows no obvious interatrial shunt but poor image quality significantly reduces the sensitivity for the detection of such. Clinical correlation is recommended. There is no obvious significant valvular heart disease. Additional Diagnostics DateTimeAnalyzed 04:42:00 -_ pH ____7.396 - 7.350 7.450 pCO2 ___60.1__ -mmHg 35.0 45.0 pO2 ___72.5__ -mmHg 80.0 100 HCO3- ___36.1__ -mmol/L 22.0 26.0 ABE ____9.1__ -mmol/L -2.0 2.0 tHb ___15.4__ -g/dL 12.0 18.0 O2Hb ___91.9__ -% COHb ____1.1__ -% 1.5 MetHb ____0.7__ -% 0.4 1.5 sO2 ___93.7__ -% 95.0 FIO2 ___30.0__ -% Drawn By AF - Date/Time Notified____ 04:49:00 -_ Spontaneous_RR ___26.0__ -b/min Oxygen Device 1 ____BIPAP - Notified By AF - Notified Whom Raphael Snover RN -___ B 760 -mmHg tO2 ___19.9__ -Vol% Noah test _Positive - Assessment & Plan Patient is a 76 year old male with a history of CAD and DM who presents to the ED via EMS complaining of L sided paralysis upon waking this morning with CTA- finding of Acute infarct Right Basal Ganglia right middle cerebral artery compatible presence of thrombus. 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 MRI Brain- shows early mild to moderate mass effect. Per MRI/CTA- Thrombus that likely partially obstructing the junction of the right MCA at M1-M2 junction. Presented outside of tPA window. ED called [facility], not a candidate for clot retrieval. Mention of Afib in prior notes but no Afib confirmed. no prior history of Afib. Patient's telemetry discontinued on 11/14 . unknown if he has been in Afib or SR per nuclear plant instrument technician .initial EKG SR Allowed permissive HTN first 48 hrs, 11/10-Echo- EF 60-65%, atria are not well visualized but grossly appear normal in size. - Lipid Panel- uremarkable. - Consulted Neuro- Dr. Chand. Her initial Recs- med management w/ dual anti- platelet therapy. ASA/Plavix for 90 days. High dose Atorvastatin. PT/OT/OFFICE SERVICES ASSISTANT. - PT recs Inpt rehab. - Can follow up with Dr. Chand in 2-3 weeks. -- PEG tube placed onn 11/18 after he was off of Plavix for 5 days for the procedure, -- 11/18 contacted [facility] in the am for a possible transfer for carotid endarterectomy, talked to the vascular surgery. They do not recommend endarterectomy with patient's modified tex functional score of 4-5. -eventually will discharge to [facility] inpatient rehab . carotid endarterectomy to be arranged outpatient likely on 11/21 if patient's respiratory status improves # Acute on chronic hypoxic and hypercapnic respiratory failure , chronic present on admission -Multifactorial ,YOSELYN ,atelectasis, and possible central due to acute stroke -- Patient O2 saturations were 87-91% while I was speaking with him this afternoon on room air. Encourage incentive spirometry/ambulation at least to chair daily. With smoking history would change inhalers to prn and perform an out pt PFT to determine if COPD is in fact present. ABG ON RA AT 1554 11/20/16 7.4/56/49 bicarb 35.1 From observation during hospitalization he appears to benefit from bipap 12/5 with fio2 30%. His tidal volumes on this mode are around 550 ml. Consider home nasal pillows mask with chin strap for improved comfort. To understand the true nature of his sleep apnea and evaluate if central sleep apnea is present an attended sleep study should be performed to ensure adequate pressure support and device requirements. This needs to be performed on an outpatient basis. I have spoken to his family at bedside. All questions asked and answered. # Allergic Conjunctivitis acute improved -- Artifical tears ordred -- No pataday or azalastine on formulary. Visine . Eyedrops are ordered. # Mild to Moderate mass effect /cerebral edema due to R MCA Infarct- acute, active. Pt is Hemodynamically stable. Neuro exam unchanged since admit. - For reference; Baseline Neuro Exam as of 11/10- Alert and Oriented x 3. Moderate slurred speech. R Facial Droop, Left Hemiparesis power 4/5 LLE 3+ LUE. No R sided deficits at all. Sensation intact bilaterally. - frequent q4h Neuro checks, consider upgrade to ICU if more frequent neuro checks or change in mental status. - Per Dr. Davidson"Discussed case with Neuro-Dr. Chand. No Decadron. Get Stat CT Head for any significant change in Neuro exam or if becomes hemodynamically unstable. If mass effect worsens would need urgent transfer to [facility] for possible craniotomy. " # B/L Carotid Artery Stenosis- poa, active. Per CT- High-grade, 90% to near- complete occlusion of the origin of the right ICA. High-grade, proximally 70-80 % stenosis of the origin the L ICA. - 11/11- spoke with [place] [facility] Surgeon. They would want to wait 2-3 weeks until CVA stable before performing Carotid Endarterectomy. Instructed to schedule a follow up at [facility]. Agree with dual antiplatelet therapy. -Carotid Endarterectomy outpatient.this may be arranged at [facility] or [place] # hx of Ground Level Fall, acute, active. Occurred 2 months ago per pt. sustained Left seventh and eighth rib fractures per CXR. Left Pulmonary Contusion. -- Continue to monitor # pruitt inserted few days ago due to immobility per RN -pruitt was discontinued on 11/19/16 # CAD s/p CABG-chronic c/w ASA. Allow for permissive HTN, BP has been low off all HTN Meds. Will hold Metoprolol and resume at low dose once BP allows. # DM-chronic - SSI, fingersticks. - Held hm Lantus 40u given low blood sugars. Patient has not been needing correction as he is also not eating much.only requiring 20 U HS currently.may need to discharge a lower dose of insulin upon discharge -Hold Metformin. - Hba1c of 6.7 # Chronic hypertension worsening -- Restart patient's metoprolol on 11/13, increased to 125 mg PO BID on 11/17 -- Restart lisinopril home med full dose 11/14 -- Added amlodipine 5 mg on 11/16, Increased to 7.5 mg On 11/18 as his BP are still quite elevated. Amlodipine Will take half to 2 days to work, -- He received another dose of IV Lasix 20 mg on 11/17 -- Aldactone 25 mg Daily to start on 11/18 am -- continue to monitor # Morbid obesity, chronic ongoing -- Patient is presenting with a challenge to nursing due to large body habitus Code-Full Dispo: Inpt rehab at [place] per PT/UR/SW likely tomorrow if respiratory status is improved and stable. GI Prophylaxis: Proton Pump Inhibitor VTE Prophylaxis: Sub-Q Heparin (Unfractionated) VTE Mechanical Devices: Intermittant Pneumatic CD Resuscitation Status: CPR: Attempt Resuscitation Time spent CPT code 35678 Ramiro Parikh MD Nov 20, 2016 16:17
[2016-11-20] MEDS ORDERED: Phenazopyridine 97.5 mg Tablet PO ONE (18:10)
[2016-11-20] MEDS: Insulin GLARgine 100 Unit/mL Syringe SUBQ SCH (21:00)
[2016-11-21] VITALS (9 sets, daily range): BP systolic 154–164; BP diastolic 75–82; PULSE 72–86; RESP 16–24; O2SAT 88–95
[2016-11-21] MEDS: Heparin 5,000 Unit/mL Inj SUBQ SCH ×4 (00:57→23:56)
--- NOTE | 2016-11-21 03:36 | NUR ---
Tube Feed Tube feed rate ate onset of NOC shift 25 Ml/hr, increased to 35 Ml/hr @ 2019,, increased to 45 Ml/hr @ 219, pt has tolerated the feeding and rate increases , target rate 60 Ml/hr . Tries to use urinal but has not been able to void into urinal , has been incontinent in brief , Bi-Pap to sleep , 01/28 , 30% FiO2. Not on telemetry, A&O x 2 , somewhat disconnected as to his physical limitations, ,is aware of discharge intentions to Re-Hab, just not certain when or how to get there. Saline locked,
[2016-11-21 04:31] LABS: BASOPHILS % (AUTO) 0.4 % (0-3); EOSINOPHILS % (AUTO) 4.4 % (0-5); MONOCYTES % (AUTO) 11.9 % (4-12); Mean Corpuscular Hemoglobin 29.8 pg (27.0-35.0); Mean Corpuscular Volume 89.9 fL (81-100); NEUTROPHILS % (AUTO) 67.7 % (40-74); Platelet Count 204 bil/L (150-400)
[2016-11-21] MEDS: Insulin LISPRO 300 Unit/3 mL Inj SUBQ SCH ×4 (08:00→20:22)
[2016-11-21] MEDS: Albuterol-Ipratropium 3 mL Inhalation Solution NEB SCH ×3 (08:47→20:56)
--- NOTE | 2016-11-21 11:33 | NUR ---
INPATIENT REHAB UPDATE : Faxed additional clinicals to [place] inpatient rehab. Updated SALES SUPPORT CONSULTANT
--- NOTE | 2016-11-21 13:46 | NUR ---
NUTRITION FOLLOW-UP: ASSESS: 76 YO male admitted with stroke. NG tube placed 11/15 for nutrition support as pt has been unable to advance his diet past stimulation. Pt was tolerating ~75% of stimulation diet and TF rate was running at 30ml before NGT was pulled. Pt had PEG placed 11/18. TF was started 11/20. He is tolerating well with no issues or complaints. TF is currently running at 55ml/hr. Per RN, rate to advance to goal today at 2pm. PMHx: CAD, DM. LABS: Reviewed. Na 145, CO2 34, Bun 35, Glu 148, Alb 3.5 MEDS: Reviewed. GI: BM x 2 11/21 CURRENT WT: 132.5kg, BMI 40.7 kg/m2. Admit weight: 132.3 kg. IBW: 78.2 kg. Adj BW: 91.7 kg. DIET: NPO per ST NUTRITION SUPPORT: Glucerna 1.5 @ 55ml/hr EST. NEEDS: Kcals: 8285-9101 kcals (25-30 kcals/kg Adj. BW), Protein: 110-140 g protein (1.2-1.5 g/kg Adj. BW) Fluids: 2300-2750ml/day (1ml/kcal) NUTRITION DIAGNOSIS: 1) Chewing / Swallowing difficulties related to motor causes (stroke) as evidenced by inability to tolerate diet beyond stimulation texture. ST following - PERSISTS. 2) Inadequate oral intake related to inability to consume sufficient energy as evidenced by NPO/stimulation diet x 9 days - PERSISTS. NUTRITION INTERVENTION: 1) Continue to advance TF of Glucerna 1.5 to goal rate of 70 mL/hr to provide 2415 kcals and 132g protein per day (100% estimated needs). Recommend H2O flush dose of 40 ml every 4 hours while pt is on IV fluids. Once IV fluids are stopped, recommend flush dose of 90 mL every 2 hours to provide a total of 2301ML free H2O per day from TF and flushes. 2) Advance diet per ST MONITOR/EVAL: TF vadim/to goal, NPO, ST, wt, GI, labs, POC, nutrition status. Will continue to monitor per high nutrition risk guidelines Addendum: 11/23/16 at [address] Per RN pt tube feeding running at goal rate of 70ml/hr, well tolerated. Note Na elevated, verified with RN that IV fluids are off and pt is infact receiving appropriate fluid amount via H2) flush; at 90ml q 2 hrs, providing 2301ml fluid, to meet 100% fluid needs. Continue to monitor. LABS: Glu 150, Na 147, BUN 50, Alb 3.4
[2016-11-21] MEDS: Tetrahydrozoline 0.05% 15 mL Ophthalmic Solution BOTH_EYES PRN ×2 (15:00→20:29)
--- NOTE | 2016-11-21 16:40 | NUR ---
UA UA needed. The MD's would like the UA to be sent today so we placed a condom cath and will try to see if it works. The pt has stated he needs to void many times today and will place the urinal but unable to void when its there leaving the pt incont of urine.
--- NOTE | 2016-11-21 16:41 | NUR ---
Social Work: Readiness for Discharge/Multidisciplinary Rounds D: Patient discussed in multidisciplinary rounds; Patient has not yet reached his goal with his tube feeds. Patient will likely be medically stable for discharge to [facility] tomorrow. COVER CREASER received t/c from Admissions workerparvin, at [facility]. She is requesting updated clinicals faxed to [phone]. Closing Coordinator confirms that she has completed this. COVER CREASER informed her that the patient is anticipated to be ready for discharge tomorrow. Parvin states that she will alert the medical insurance claims specialist and review bed census for tomorrow. COVER CREASER met with the patient and his nephew at bedside to confirm the discharge plan. They both agree with the plan and understand that they will likely have to pay privately for a cabulance down to [place]. Patient's son is requesting the address for [facility] location and whether they have family lodging at [place] that is similar to the [facility]. COVER CREASER did not know the answer to this and will inquire with admissions worker tomorrow. A: Pt who will require inpatient rehab for ongoing intensive PT, OT and ST P: Patient anticipated to discharge to [facility] via [facility]. COVER CREASER to continue to follow to coordinate discharge once medically stable. LISA Peterson
--- NOTE | 2016-11-21 17:33 | PCM.PNMED ---
Subjective Date of Service Nov 21, 2016 Subjective Patient is a 76 year old male with a history of CAD and DM who presents to the ED via EMS complaining of L sided paralysis upon waking this morning with CTA- finding of Acute infarct Right Basal Ganglia right middle cerebral artery compatible presence of thrombus. Patient was seen and examined by me this morning. He states that he feels better overall. He was just working with Occupational Therapy and was feeling somewhat tired from the activities. He states that his breathing has improved even though he has been off of BiPap this morning. He notes that he continues to have pain and burning in the genitalia area after his pruitt catheter was removed. Nephew has noticed great improvement in his physical ability and mentation since his stroke. Patient was started on feeds yesterday through PEG tube. Overnight, patient was placed on BiPap 12/, 30% FiO2 to sleep. No other acute events overnight. Exam Vital Signs Vital Sign - Last Date Time Temp Pulse Resp B/P Pulse Ox O2 Delivery O2 Flow Rate FiO2 11/21/16 04:47 81 22 92 30 11/20/16 23:31 36.8 151/98 BiPAP 11/20/16 19:58 2.00 Intake and Output 11/20/16 11/20/16 11/21/16 Cumulative From/Thru 15:00 23:00 07:00 11/09/16 12:55 - 11/21/16 06:44 Intake Total 511 ml 64303 ml Output Total 75846 ml Balance 511 ml 2533 ml Intake Oral 1160 ml IV Total 82784 ml Tube Feeding 421 ml 954 ml Tube Irrigant 90 ml 508 ml Output Urine Total 36760 ml Stool Total 150 ml # Voids 7 17 # Bowel Movements 2 12 Exam General: Patient is sitting comfortably on chair, AAOX3, not in acute distress, cooperative and pleasant. HEENT: head normocephalic , PERRLA, EOMI, no scleral icterus, noninjected conjunctiva Neck: neck supple, non-tender, no lymphadenopathy, trachea midline, no JVD CV: regular rate and rhythm, s1 and s2 heard, radial pulses equal bilaterally, no rubs murmurs or gallops, no edema Lungs: diminished lung sounds bilaterally, mild increased work of breathing Abdomen: normoactive bowel sounds on 4Q, soft, non-distended, non-tender to palpation, no organomegally, PEG tube in place Skin: warm and dry Musculoskeletal: decreased UE and LE muscle strength on left side. However, patient is able to have movement, which appears to be improved per nephew Neuro: positive for slight facial droop, decreased muscle strength and ROM of left UE and LE, no sensation of left lower extremity Psych: Normal mood and affect IVs and Medications Medications Reviewed: Medications were reviewed in detail Lab and Diagnostics Laboratory Tests Test 11/21/16 03:55 White Blood Count 10.7th/mm3 (3.8-10.1) Red Blood Count 5.24mil/mm3 (4.40-5.80) Hemoglobin 15.6g/dL (13.8-17.2) Hematocrit 47.1% (41.0-50.0) Mean Corpuscular Volume 89.9fL (81-100) Mean Corpuscular Hemoglobin 29.8pg (27.0-35.0) Mean Corpuscular Hemoglobin Concent 33.1% (32.0-37.0) Red Cell Distribution Width 13.7% (12.3-15.4) Platelet Count 204bil/L (150-400) Neutrophils (%) (Auto) 67.7% (40-74) Lymphocytes (%) (Auto) 15.3% (14-46) Monocytes (%) (Auto) 11.9% (4-12) Eosinophils (%) (Auto) 4.4% (0-5) Basophils (%) (Auto) 0.4% (0-3) Sodium Level 145mEq/L (134-144) Potassium Level 3.7mEq/L (3.5-5.2) Chloride Level 99mEq/L (97-108) Carbon Dioxide Level 34mmol/L (18-29) Blood Urea Nitrogen 35mg/dL (8-27) Creatinine 0.78mg/dL (0.76-1.27) Estimat Glomerular Filtration Rate 103mL/min (>59) Glucose Level 148mg/dL (60-99) Calcium Level 9.2mg/dL (8.5-10.1) Total Bilirubin 0.6mg/dL (0.0-1.2) Aspartate Amino Transf (AST/SGOT) 25U/L (0-50) Alanine Aminotransferase (ALT/SGPT) 16U/L (0-44) Alkaline Phosphatase 54U/L (25-160) Total Protein 6.3g/dL (6.4-8.4) Albumin 3.5g/dL (3.4-5.0) Microbiology 11/12/16 Sputum Quality Screen - Final, Complete 11/12/16 Sputum Culture - Final, Complete MODERATE NORMAL TINO PRESENT Result Diagram: 11/21/16 0355 11/21/16 0355 X-Rays, CTs and MRIs 11/09/16 MRI BRAIN WITH AND WITHOUT CONTRAST Brain: Scant [id number] midline shift. No intracranial bleeds or masses. No abnormal intracranial enhancement. The brainstem appears normal. Diffusion- weighted images demonstrate definite acute ischemic insults involving the right middle cerebral artery vascular distribution and extending into the basal ganglia on the right, with largest measurements of the area of subacute stroke currently measuring up to 7.2 cm AP and 3.8 cm transverse with a craniocaudad extent of approximately 3.9 cm. Subtle flow abnormalities are present on T2 and postcontrast T1 imaging in the area of thrombus present at the junction of the M1 and M2 segments right middle cerebral artery. Several additional punctate foci of infarction are present involving the anterior tip of the right temporal lobe and also the temporal occipital junction on the right. No chronic ischemic insults. Normal intravascular flow voids are present. IMPRESSION: Moderately large right middle cerebral artery vascular distribution with early mild to moderate mass effect, causing only slight right- to-left deviation of the midline structures, without associated hemorrhage. As discussed above and previously during CT angiographic report there is a thrombus that currently is likely partially obstructing the junction of the right middle cerebral artery M1-M2 junction. A portion of this thrombus is involving the lenticulostriate origins on the right is the presumed explanation for the basal ganglia contiguous infarction in that area and embolic etiology is the likely cause given the presence of several additional punctate foci of subacute ischemic injury involving the anterior and posterior margins of the right temporal lobe Chest Xray Interpretation: IMPRESSION: 1. Focal opacity in the periphery of the left midlung suspicious for pulmonary contusion. 2. Left seventh and eighth rib fractures. Dictated by: Cindi Red MD, PhD on 11/09/2016 at 13:28 Approved by: Cindi Red MD, PhD on 11/09/2016 at 13:30 View: Portable, 1 view Interpretation / Wet Read by: Interpret - Radiologist CT ANGIO HEAD AND NECK: IMPRESSION: 1. Subtle loss of morrow-white matter change involving the right basal ganglia suspicious for acute infarct. 2. No intracranial hemorrhage. 3. Absence of flow in the distal M1 segment and the proximal M2 segments of the right middle cerebral artery compatible presence of thrombus. 4. 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 5. High-grade, proximally 70-80% stenosis of the origin the left internal carotid artery. 6. Moderate stenosis of the origins of the vertebral arteries. 7. Image quality severely degraded by patient motion artifact. 8. Findings telephoned to Dr. Suleman Pedroza on 11/09/2016 at 1557 hrs. 12-lead ECG ECG Interpretation: sinus rate 70 non specific intraventricular conduction delay poor baseline quality multiple PVC's no obvious ST elevation no prior for comparison Time: 12:55 Interpreted by: ED physician Cardiac Echo Impressions Interpretation Summary This study quality was technically difficult with the patient being confused, unable to follow commands, and grabbing the scanning probe throughout exam. The left ventricle is not well visualized but grossly appears normal in size and left ventricular systolic function is probably normal with the ejection fraction grossly estimated to be 60-65% without obvious focal wall motion abnormalities but poor endocardial definition reduces the sensitivity for the detection of such. There is probable borderline concentric left ventricular hypertrophy. The right ventricle is not well visualized but grossly appears normal in size with probable normal systolic function. Pulmonary artery pressures cannot be estimated because of the lack of a measurable TR jet velocity but the IVC suggests a right atrial pressure of 8 mm Hg. The atria are not well visualized but grossly appear normal in size. The interatrial septum grossly appears intact with no evidence for an atrial septal defect and the injection of contrast shows no obvious interatrial shunt but poor image quality significantly reduces the sensitivity for the detection of such. Clinical correlation is recommended. There is no obvious significant valvular heart disease. Additional Diagnostics DateTimeAnalyzed 04:42:00 -_ pH ____7.396 - 7.350 7.450 pCO2 ___60.1__ -mmHg 35.0 45.0 pO2 ___72.5__ -mmHg 80.0 100 HCO3- ___36.1__ -mmol/L 22.0 26.0 ABE ____9.1__ -mmol/L -2.0 2.0 tHb ___15.4__ -g/dL 12.0 18.0 O2Hb ___91.9__ -% COHb ____1.1__ -% 1.5 MetHb ____0.7__ -% 0.4 1.5 sO2 ___93.7__ -% 95.0 FIO2 ___30.0__ -% Drawn By AF - Date/Time Notified____ 04:49:00 -_ Spontaneous_RR ___26.0__ -b/min Oxygen Device 1 ____BIPAP - Notified By AF - Notified Whom Raphael Cabrera RN -___ B 760 -mmHg tO2 ___19.9__ -Vol% Noah test _Positive - Assessment & Plan Patient is a 76 year old male with a history of CAD and DM who presents to the ED via EMS complaining of L sided paralysis upon waking this morning with CTA- finding of Acute infarct Right Basal Ganglia right middle cerebral artery compatible presence of thrombus. 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 MRI Brain- shows early mild to moderate mass effect. Per MRI/CTA- Thrombus that likely partially obstructing the junction of the right MCA at M1-M2 junction. Presented outside of tPA window. ED called [facility], not a candidate for clot retrieval. Mention of Afib in prior notes but no Afib confirmed. no prior history of Afib. Patient's telemetry discontinued on 11/14 . unknown if he has been in Afib or SR per master certified rv technician .initial EKG SR Allowed permissive HTN first 48 hrs, 11/10-Echo- EF 60-65%, atria are not well visualized but grossly appear normal in size. - Lipid Panel- uremarkable. - Consulted Neuro- Dr. Chand. Her initial Recs- med management w/ dual anti- platelet therapy. ASA/Plavix for 90 days. High dose Atorvastatin. PT/OT/MONEY COUNTER. - PT recs Inpt rehab. - Can follow up with Dr. Chand in 2-3 weeks. -- PEG tube placed on 11/18 after he was off of Plavix for 5 days for the procedure. Patient will need to be at goal rate with tube feeds for 24 hours prior to discharge. -- 11/18 contacted [facility] in the am for a possible transfer for carotid endarterectomy, talked to the vascular surgery. They do not recommend endarterectomy with patient's modified tex functional score of 4-5. -eventually will discharge to [facility] inpatient rehab . carotid endarterectomy to be arranged outpatient if patient's respiratory status improves # Acute on chronic hypoxic and hypercapnic respiratory failure , chronic present on admission -Multifactorial ,YOSELYN ,atelectasis, central due to acute stroke -- Patient continues to need 2-4 L of oxygen via nasal cannula -- ABG with hypercapnea and hypoxia . Pulm consulted and tried CPAP o/n ,they transferred patient to 2 nd floor for BIPAP trial and subsequent Triology prescription after workup -- encourage incentive spirometry -- Pulmonology ordered a dose of furosemide 20 mg IV to address elevated BNP and CXR congestion -With smoking history would continue duonebs qid for now. Eventual outpt PFT's -If no improvement may consider chest CT , he may need O2 up on discharge per pulm .may need more diuresis -11/20 Per pulmonology, we will attempt to wean off BiPap and repeat ABG in 4 hours to see if patient truly needs Trilogy. Not much change on ABGs after weaning off BiPap. No further recommendations for BiPap and trilogy. Patient can wear CPAP while asleep. #Dysuria, acute -Patient complains of burning and pain with urination after pruitt catheter was removed -Ordered a UA -Give pyridium after urine has been collected # Allergic Conjunctivitis acute improved -- Artifical tears ordred -- No pataday or azalastine on formulary. Visine . Eyedrops are ordered. # Mild to Moderate mass effect /cerebral edema due to R MCA Infarct- acute, active. Pt is Hemodynamically stable. Neuro exam unchanged since admit. - For reference; Baseline Neuro Exam as of 11/10- Alert and Oriented x 3. Moderate slurred speech. R Facial Droop, Left Hemiparesis power 4/5 LLE 3+ LUE. No R sided deficits at all. Sensation intact bilaterally. - frequent q4h Neuro checks, consider upgrade to ICU if more frequent neuro checks or change in mental status. - Per Dr. Davidson"Discussed case with Neuro-Dr. Chand. No Decadron. Get Stat CT Head for any significant change in Neuro exam or if becomes hemodynamically unstable. If mass effect worsens would need urgent transfer to [facility] for possible craniotomy. " # B/L Carotid Artery Stenosis- poa, active. Per CT- High-grade, 90% to near- complete occlusion of the origin of the right ICA. High-grade, proximally 70-80 % stenosis of the origin the L ICA. - 11/11- spoke with [facility]. They would want to wait 2-3 weeks until CVA stable before performing Carotid Endarterectomy. Instructed to schedule a follow up at [facility]. Agree with dual antiplatelet therapy. -Carotid Endarterectomy outpatient.this may be arranged at [facility] or [place] # hx of Ground Level Fall, acute, active. Occurred 2 months ago per pt. sustained Left seventh and eighth rib fractures per CXR. Left Pulmonary Contusion. -- Continue to monitor # pruitt inserted few days ago due to immobility per RN -pruitt was discontinued on 11/19/16 # CAD s/p CABG-chronic c/w ASA. Allow for permissive HTN, BP has been low off all HTN Meds. Will hold Metoprolol and resume at low dose once BP allows. # DM-chronic - SSI, fingersticks. - Held hm Lantus 40u given low blood sugars. Patient has not been needing correction as he is also not eating much.only requiring 20 U HS currently.may need to discharge a lower dose of insulin upon discharge -Hold Metformin. - Hba1c of 6.7 # Chronic hypertension worsening -- Restart patient's metoprolol on 11/13, increased to 125 mg PO BID on 11/17 -- Restart lisinopril home med full dose 11/14 -- Added amlodipine 5 mg on 11/16, Increased to 7.5 mg On 11/18 as his BP are still quite elevated. Amlodipine Will take half to 2 days to work, -- He received another dose of IV Lasix 20 mg on 11/17 -- Aldactone 25 mg Daily to start on 11/18 am -- continue to monitor # Morbid obesity, chronic ongoing -- Patient is presenting with a challenge to nursing due to large body habitus Code-Full Dispo: Inpt rehab at [facility] per PT/UR/SW likely tomorrow as long as patient remains at goal with tube feeds for at least 24 hours GI Prophylaxis: Proton Pump Inhibitor VTE Prophylaxis: Sub-Q Heparin (Unfractionated) VTE Mechanical Devices: Intermittant Pneumatic CD Resuscitation Status: CPR: Attempt Resuscitation Attending Statement The patient was seen and examined together with Dr. Bueno on 11/21/2016 and I agree with the history, exam and plan as outlined in the note above. . Shanda Bueno DO Nov 21, 2016 08:03 Jarod Collins MD Nov 22, 2016 16:52
[2016-11-21 18:05] LABS: APPEARANCE,URINE CLEAR (CLEAR,HAZY); COLOR,URINE YELLOW (YELLOW); OCCULT BLOOD,URINE TRACE (NEGATIVE)
[2016-11-21] MEDS: Insulin GLARgine 100 Unit/mL Syringe SUBQ SCH (20:29)
[2016-11-22 04:12] LABS: Mean Corpuscular Hemoglobin 29.6 pg (27.0-35.0); Mean Corpuscular Volume 89.8 fL (81-100)
--- NOTE | 2016-11-22 06:17 | NUR ---
Respiratory Pt on RA at change of shift with SpO2 85-90%; CPAP placed for HS without oxygen bleed; pt's saturation primarily 84-92% throughout shift. 1L oxygen bleed initiated due to patient frequently remaining in 85-87% range. On oxygen, pt remains at approx. 87-91%. Pt often removes CPAP despite reminders to keep in place for improved breathing and oxygenation. Pt frequently forgetful, though oriented x3; somewhat nonparticipatory in care though able to verbalize needs. Frequent use of urinal, though pt is rarely able to maintain continence, and is unable to produce urine when he feels the urge. Tube feeding infusing at goal rate, pt tolerating well. VSS, no telemetry.
[2016-11-22 08:09] VITALS: BP 181/97; PULSE 70; RESP 24; O2SAT 92
[2016-11-22] MEDS: Insulin LISPRO 300 Unit/3 mL Inj SUBQ SCH ×4 (08:23→20:30)
[2016-11-22] MEDS: Heparin 5,000 Unit/mL Inj SUBQ SCH ×2 (08:24→17:00)
[2016-11-22] MEDS: Albuterol-Ipratropium 3 mL Inhalation Solution NEB SCH ×3 (08:41→21:06)
[2016-11-22 08:42] VITALS: PULSE 78; RESP 20; O2SAT 90
--- NOTE | 2016-11-22 12:39 | PCM.DIMED ---
Shanda Bueno 11/22/16 1201: Discharge Instructions Date of Service Nov 22, 2016 Dates of Hospitalization Nov 09, 2016 at 17:10 Discharge Diagnosis Discharge Diagnosis Moderately Large Right MCA acute Ischemic Infarct involving Basal Ganglia, acute Acute on chronic hypoxic and hypercapnic respiratory failure Dysuria, acute Allergic Conjunctivitis acute improved Mild to Moderate mass effect /cerebral edema due to R MCA Infarct B/L Carotid Artery Stenosis History of Ground Level Fall Coronary Artery Disease s/p CABG- Diabetes Mellitus Chronic hypertension Morbid obesity Diet Discharge Diet: Heart Healthy Activity Discharge Activity: Other (Inpatient Physical Therapy) Call your provider Call your provider for: Fever or Chills, Shortness of breath, Bleeding, Chest pain, Vomitting, Excessive diarrhea, Weakness (unilateral) Patient Instructions Patient Instructions You presented to the Emergency Room on 11/09/16 because you noticed Left sided paralysis when you woke up in the morning. We did a CT and found that you had a stroke of your Right Middle Cerebral Artery which involves the part of your brain known as the Basal Ganglia. We spoke with the Neurologist, Dr. Chand and he suggested that we give you Aspirin and Plavix, which work as blood thinners. They also suggested that you start Physical Therapy, Occupational Therapy and Speech Therapy. Throughout your hospital stay, you have improved greatly in terms of your speech and physical mobility. You will be going to [facility] for further inpatient rehabilitation. In addition, you got a PEG tube in place for nutritional feedings and for medications because we have been working on your swallowing and did not want to risk you aspirating. Lastly, we found that there were blockages of your carotid arteries. We spoke with [facility]. They would want to wait 2-3 weeks until your stroke has been stable before performing Carotid Endarterectomy, a surgery to remove the blockages. You have been Instructed to schedule a follow up at [facility] or at [place] for this procedure. As for your breathing, it is really important that you wear your CPAP at night when you go to sleep regularly. Follow-up plan Patient will be going to [facility] for further inpatient rehabilitation. Jarod Collins MD 11/23/16 0824: Discharge Instructions Attending's Statement The patient was seen and examined together with Dr. Bueno on 11/22/2016 and I agree with the history, exam and plan as outlined in the note above. . Shanda Bueno DO Nov 22, 2016 12:01 Jarod Collins MD Nov 23, 2016 08:24
[2016-11-22] MEDS ORDERED: METO25TA6 PO (12:44)
[2016-11-22] MEDS ORDERED: CLOP75TA28 PO (12:44)
[2016-11-22] MEDS ORDERED: SPIR25TA PO (12:44)
[2016-11-22] MEDS ORDERED: AMLO5TAB2 PO (12:44)
[2016-11-22] MEDS ORDERED: LISI-567 PO (12:44)
[2016-11-22] MEDS ORDERED: INSU100V7 SUBQ (12:44)
[2016-11-22] MEDS ORDERED: INSLIS SUBQ (12:44)
[2016-11-22] MEDS ORDERED: ASPI-973 PO (12:44)
[2016-11-22] MEDS ORDERED: ATOR40TA69 PO (12:44)
--- NOTE | 2016-11-22 13:13 | NUR ---
INPATIENT REHAB UPDATE : Called and spoke with Parvin at [facility] and she is working on seeing if there is a bed for this patient today. She took in two other admits today and she is working with her administration on this currently and will get back to me as soon as possible. Updated SPINE NURSE Addendum: 11/22/16 at 1403 by ELIZABETH BRICEÑO CM [facility] can take patient on Friday11/24/16 updated SPINE NURSE and we will fax all orders today so everything is set for Friday morning transfer. Updated
[2016-11-22 14:40] VITALS: PULSE 68; RESP 20; O2SAT 89
--- NOTE | 2016-11-22 16:16 | NUR ---
Transfer to [facility]. Patient unable to discharge to rehab facility today due to lack of bed availability. Patient alert and oriented to self and year. Confused and forgetful but pleasant and cooperative. VSS. Patient has PEG tube with glucerna 1.5 running at 70 mL per hour. Patient tolerating tube feed well. Patient denies pain/discomfort. Family at bedside. Patient left unit via bed with all personal belongings. Report given to MOC RN.
--- NOTE | 2016-11-22 16:17 | NUR ---
Social Work Note: Readiness for Discharge/Multidisciplinary Rounds Data: Patient discussed in multidisciplinary rounds, Pt is getting closer to being medically ready for transition to [facility] rehab. MOTEL MAID spoke with Parvin at [facility] rehab via t/c who explained they will not have a bed available to accept pt until this Friday11/24/2016. MOTEL MAID notified pt, pt nephew at bedside, MD and RN. Assessment: Pt who will require inpatient rehab for ongoing intensive PT, OT and ST Plan: Patient anticipated to discharge to [facility] via [facility] this Friday11/24/2016. Pt family denies any other needs at this time. MOTEL MAID to continue to follow if any other pt needs and MD orders arise. LISA Ying
[2016-11-22 16:28] VITALS: BP 164/96; PULSE 88; RESP 20; O2SAT 95
[2016-11-22] MEDS ORDERED: Phenazopyridine 97.5 mg Tablet PO PRN (16:50)
--- NOTE | 2016-11-22 19:15 | PCM.PNMED ---
Subjective Date of Service Nov 22, 2016 Subjective Patient is a 76 year old male with a history of CAD and DM who presents to the ED via EMS complaining of L sided paralysis upon waking this morning with CTA- finding of Acute infarct Right Basal Ganglia right middle cerebral artery compatible presence of thrombus. Patient was seen and examined by me today. He states that he feels well overall. He continues to complain of some mild burning with urination. He denies headaches, visual changes, chest pain, SOB, nausea, vomiting and abdominal pain. He notes that he is very thirsty and would like to have a drink. The plan was to discharge patient to [facility] today. However, there were no beds available. There were no acute events overnight. Patient was uncomfortable with CPap mask. Exam Vital Signs Vital Sign - Last Date Time Temp Pulse Resp B/P Pulse Ox O2 Delivery O2 Flow Rate FiO2 11/22/16 16:46 CPAP/BIPAP 11/22/16 16:28 37.4 88 20 164/96 95 11/22/16 00:22 21 11/20/16 19:58 2.00 Intake and Output 11/21/16 11/21/16 11/22/16 Cumulative From/Thru 15:00 23:00 07:00 11/09/16 12:55 - 11/22/16 06:30 Intake Total 719 ml 980 ml 95703 ml Output Total 80769 ml Balance 719 ml 980 ml 4232 ml Intake Oral 0 ml 0 ml 1160 ml IV Total 00397 ml Tube Feeding 659 ml 770 ml 2383 ml Tube Irrigant 60 ml 210 ml 778 ml Output Urine Total 98993 ml Stool Total 150 ml # Voids 5 7 29 # Bowel Movements 1 13 Exam General: Patient is sitting comfortably on chair, AAOX3, not in acute distress, cooperative and pleasant. HEENT: head normocephalic , PERRLA, EOMI, no scleral icterus, noninjected conjunctiva Neck: neck supple, non-tender, no lymphadenopathy, trachea midline, no JVD CV: regular rate and rhythm, s1 and s2 heard, radial pulses equal bilaterally, no rubs murmurs or gallops, no edema Lungs: diminished lung sounds bilaterally, mild increased work of breathing Abdomen: normoactive bowel sounds on 4Q, soft, non-distended, non-tender to palpation, no organomegally, PEG tube in place Skin: warm and dry Musculoskeletal: decreased UE and LE muscle strength on left side. However, patient is able to have movement, which appears to be improved per nephew Neuro: positive for slight facial droop, decreased muscle strength and ROM of left UE and LE, no sensation of left lower extremity Psych: Normal mood and affect Lab and Diagnostics Result Diagram: 11/22/16 0400 11/22/16 0400 X-Rays, CTs and MRIs 11/09/16 MRI BRAIN WITH AND WITHOUT CONTRAST Brain: Scant [id number] midline shift. No intracranial bleeds or masses. No abnormal intracranial enhancement. The brainstem appears normal. Diffusion- weighted images demonstrate definite acute ischemic insults involving the right middle cerebral artery vascular distribution and extending into the basal ganglia on the right, with largest measurements of the area of subacute stroke currently measuring up to 7.2 cm AP and 3.8 cm transverse with a craniocaudad extent of approximately 3.9 cm. Subtle flow abnormalities are present on T2 and postcontrast T1 imaging in the area of thrombus present at the junction of the M1 and M2 segments right middle cerebral artery. Several additional punctate foci of infarction are present involving the anterior tip of the right temporal lobe and also the temporal occipital junction on the right. No chronic ischemic insults. Normal intravascular flow voids are present. IMPRESSION: Moderately large right middle cerebral artery vascular distribution with early mild to moderate mass effect, causing only slight right- to-left deviation of the midline structures, without associated hemorrhage. As discussed above and previously during CT angiographic report there is a thrombus that currently is likely partially obstructing the junction of the right middle cerebral artery M1-M2 junction. A portion of this thrombus is involving the lenticulostriate origins on the right is the presumed explanation for the basal ganglia contiguous infarction in that area and embolic etiology is the likely cause given the presence of several additional punctate foci of subacute ischemic injury involving the anterior and posterior margins of the right temporal lobe Chest Xray Interpretation: IMPRESSION: 1. Focal opacity in the periphery of the left midlung suspicious for pulmonary contusion. 2. Left seventh and eighth rib fractures. Dictated by: Cindi Red MD, PhD on 11/09/2016 at 13:28 Approved by: Cindi Red MD, PhD on 11/09/2016 at 13:30 View: Portable, 1 view Interpretation / Wet Read by: Interpret - Radiologist CT ANGIO HEAD AND NECK: IMPRESSION: 1. Subtle loss of morrow-white matter change involving the right basal ganglia suspicious for acute infarct. 2. No intracranial hemorrhage. 3. Absence of flow in the distal M1 segment and the proximal M2 segments of the right middle cerebral artery compatible presence of thrombus. 4. 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 5. High-grade, proximally 70-80% stenosis of the origin the left internal carotid artery. 6. Moderate stenosis of the origins of the vertebral arteries. 7. Image quality severely degraded by patient motion artifact. 8. Findings telephoned to Dr. Suleman Pedroza on 11/09/2016 at 1557 hrs. 12-lead ECG ECG Interpretation: sinus rate 70 non specific intraventricular conduction delay poor baseline quality multiple PVC's no obvious ST elevation no prior for comparison Time: 12:55 Interpreted by: ED physician Cardiac Echo Impressions Interpretation Summary This study quality was technically difficult with the patient being confused, unable to follow commands, and grabbing the scanning probe throughout exam. The left ventricle is not well visualized but grossly appears normal in size and left ventricular systolic function is probably normal with the ejection fraction grossly estimated to be 60-65% without obvious focal wall motion abnormalities but poor endocardial definition reduces the sensitivity for the detection of such. There is probable borderline concentric left ventricular hypertrophy. The right ventricle is not well visualized but grossly appears normal in size with probable normal systolic function. Pulmonary artery pressures cannot be estimated because of the lack of a measurable TR jet velocity but the IVC suggests a right atrial pressure of 8 mm Hg. The atria are not well visualized but grossly appear normal in size. The interatrial septum grossly appears intact with no evidence for an atrial septal defect and the injection of contrast shows no obvious interatrial shunt but poor image quality significantly reduces the sensitivity for the detection of such. Clinical correlation is recommended. There is no obvious significant valvular heart disease. Additional Diagnostics DateTimeAnalyzed 04:42:00 -_ pH ____7.396 - 7.350 7.450 pCO2 ___60.1__ -mmHg 35.0 45.0 pO2 ___72.5__ -mmHg 80.0 100 HCO3- ___36.1__ -mmol/L 22.0 26.0 ABE ____9.1__ -mmol/L -2.0 2.0 tHb ___15.4__ -g/dL 12.0 18.0 O2Hb ___91.9__ -% COHb ____1.1__ -% 1.5 MetHb ____0.7__ -% 0.4 1.5 sO2 ___93.7__ -% 95.0 FIO2 ___30.0__ -% Drawn By AF - Date/Time Notified____ 04:49:00 -_ Spontaneous_RR ___26.0__ -b/min Oxygen Device 1 ____BIPAP - Notified By AF - Notified Whom Raphael Cabrera RN -___ B 760 -mmHg tO2 ___19.9__ -Vol% Noah test _Positive - Assessment & Plan Patient is a 76 year old male with a history of CAD and DM who presents to the ED via EMS complaining of L sided paralysis upon waking this morning with CTA- finding of Acute infarct Right Basal Ganglia right middle cerebral artery compatible presence of thrombus. Family would like to make sure that patient receives Physical therapy tomorrow on 11/23/16 as patient has been continuing to show progress. 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 MRI Brain- shows early mild to moderate mass effect. Per MRI/CTA- Thrombus that likely partially obstructing the junction of the right MCA at M1-M2 junction. Presented outside of tPA window. ED called [facility], not a candidate for clot retrieval. Mention of Afib in prior notes but no Afib confirmed. no prior history of Afib. Patient's telemetry discontinued on 11/14 . unknown if he has been in Afib or SR per instructional technology director .initial EKG SR Allowed permissive HTN first 48 hrs, 11/10-Echo- EF 60-65%, atria are not well visualized but grossly appear normal in size. - Lipid Panel- uremarkable. - Consulted Neuro- Dr. Chand. Her initial Recs- med management w/ dual anti- platelet therapy. ASA/Plavix for 90 days. High dose Atorvastatin. 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 - PT recs Inpt rehab. - Can follow up with Dr. Chand in 2-3 weeks. -- PEG tube placed on 11/18 after he was off of Plavix for 5 days for the procedure. Patient will need to be at goal rate with tube feeds for 24 hours prior to discharge. -- 11/18 contacted [facility] in the am for a possible transfer for carotid endarterectomy, talked to the vascular surgery. They do not recommend endarterectomy with patient's modified tex functional score of 4-5. -eventually will discharge to [facility] inpatient rehab . carotid endarterectomy to be arranged outpatient if patient's respiratory status improves # Acute on chronic hypoxic and hypercapnic respiratory failure , chronic present on admission -Multifactorial ,YOSELYN ,atelectasis, central due to acute stroke -- Patient continues to need 2-4 L of oxygen via nasal cannula -- ABG with hypercapnea and hypoxia . Pulm consulted and tried CPAP o/n ,they transferred patient to 2 nd floor for BIPAP trial and subsequent Triology prescription after workup -- encourage incentive spirometry -- Pulmonology ordered a dose of furosemide 20 mg IV to address elevated BNP and CXR congestion -With smoking history would continue duonebs qid for now. Eventual outpt PFT's -If no improvement may consider chest CT , he may need O2 up on discharge per pulm .may need more diuresis -11/20 Per pulmonology, we will attempt to wean off BiPap and repeat ABG in 4 hours to see if patient truly needs Trilogy. Not much change on ABGs after weaning off BiPap. No further recommendations for BiPap and trilogy. Patient can wear CPAP while asleep. #Dysuria, acute -Patient complains of burning and pain with urination after pruitt catheter was removed -Ordered a UA. UA shows negative nitrites, trace LE, few bacteria and few epithelial cells. There is not strong evidence for UTI. We will not start with antibiotics and await cultures -Urine Culture pending -Ordered pyridium # Allergic Conjunctivitis acute improved -- Artifical tears ordred -- No pataday or azalastine on formulary. Visine . Eyedrops are ordered. # Mild to Moderate mass effect /cerebral edema due to R MCA Infarct- acute, active. Pt is Hemodynamically stable. Neuro exam unchanged since admit. - For reference; Baseline Neuro Exam as of 11/10- Alert and Oriented x 3. Moderate slurred speech. R Facial Droop, Left Hemiparesis power 4/5 LLE 3+ LUE. No R sided deficits at all. Sensation intact bilaterally. - frequent q4h Neuro checks, consider upgrade to ICU if more frequent neuro checks or change in mental status. - Per Dr. Davidson"Discussed case with Neuro-Dr. Chand. No Decadron. Get Stat CT Head for any significant change in Neuro exam or if becomes hemodynamically unstable. If mass effect worsens would need urgent transfer to [facility] for possible craniotomy. " # B/L Carotid Artery Stenosis- poa, active. Per CT- High-grade, 90% to near- complete occlusion of the origin of the right ICA. High-grade, proximally 70-80 % stenosis of the origin the L ICA. - 11/11- spoke with [facility]. They would want to wait 2-3 weeks until CVA stable before performing Carotid Endarterectomy. Instructed to schedule a follow up at [facility]. Agree with dual antiplatelet therapy. -Carotid Endarterectomy outpatient.this may be arranged at [facility] or [facility] # hx of Ground Level Fall, acute, active. Occurred 2 months ago per pt. sustained Left seventh and eighth rib fractures per CXR. Left Pulmonary Contusion. -- Continue to monitor # pruitt inserted few days ago due to immobility per RN -pruitt was discontinued on 11/19/16 # CAD s/p CABG-chronic c/w ASA. Allow for permissive HTN, BP has been low off all HTN Meds. Will hold Metoprolol and resume at low dose once BP allows. # DM-chronic - SSI, fingersticks. - Held hm Lantus 40u given low blood sugars. Patient has not been needing correction as he is also not eating much.only requiring 20 U HS currently.may need to discharge a lower dose of insulin upon discharge -Hold Metformin. - Hba1c of 6.7 # Chronic hypertension worsening -- Restart patient's metoprolol on 11/13, increased to 125 mg PO BID on 11/17 -- Restart lisinopril home med full dose 11/14 -- Added amlodipine 5 mg on 11/16, Increased to 7.5 mg On 11/18 as his BP are still quite elevated. Amlodipine Will take half to 2 days to work, -- He received another dose of IV Lasix 20 mg on 11/17 -- Aldactone 25 mg Daily to start on 11/18 am -- continue to monitor # Morbid obesity, chronic ongoing -- Patient is presenting with a challenge to nursing due to large body habitus Code-Full Dispo: Inpt rehab at [place] per PT/UR/SW likely on Friday pending bed availabilities. Family is concerned that patient did not receive PT/OT/speech today as the initial plan was to discharge patient to rehab today. They would like for patient to receive PT and speech tomorrow 11/23. Pain Evaluation: Adequate Pain Control GI Prophylaxis: Proton Pump Inhibitor VTE Prophylaxis: Sub-Q Heparin (Unfractionated) VTE Mechanical Devices: Intermittant Pneumatic CD Resuscitation Status: CPR: Attempt Resuscitation Attending Statement The patient was seen and examined together with Dr. Bueno on 11/22/2016 and I agree with the history, exam and plan as outlined in the note above. . Shanda Bueno DO Nov 22, 2016 19:15 Jarod Collins MD Nov 23, 2016 08:23
[2016-11-22] MEDS: Insulin GLARgine 100 Unit/mL Syringe SUBQ SCH (21:06)
[2016-11-22 22:00] VITALS: BP 144/78; PULSE 76; O2SAT 92
[2016-11-23] MEDS: Heparin 5,000 Unit/mL Inj SUBQ SCH ×4 (00:13→23:34)
[2016-11-23] MEDS: Insulin LISPRO 300 Unit/3 mL Inj SUBQ SCH ×4 (02:30→20:16)
--- NOTE | 2016-11-23 05:24 | NUR ---
Nursing, NOC shift Patient alert, oriented. Able to correctly state time/date, SVH, and why: "I had a stroke several weeks ago, and I fell because of it." As night progressed, he was a little more confused than earlier, asking "where am I?" and "Will you help me walk out of here?" Seems to do well with redirection; although very restless thru the NOC. Continues with Glucerna 1.5 TF @ goal 70cc/hr, w/ 90cc h2o flush Q2hr via PEG. Dressing to PEG site changed, scant sero-sang drainage noted. BS's thru NOC 135+142, Lantus given at HS, no SSI given. Frequently incont of b/b, attempted to use urinal w/ difficulty r/t positioning. 2+person assist for bed mobility, ADL assistance. Patient able to help turn w/ RUE, but becomes distracted easily and forgets the task at hand. Continues w/ L sided weakness/neglect. States "I can feel my hand, I just can't move it." Oral care frequently to keep mucosa moist. Shave at HS, and trimmed his mustache. 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 Denies pain/discomfort, appears comfortable at this time. Call light w/in reach. CTM for changes.
[2016-11-23 08:31] VITALS: PULSE 65; RESP 20; O2SAT 90
[2016-11-23] MEDS: Albuterol-Ipratropium 3 mL Inhalation Solution NEB SCH ×3 (08:31→19:38)
[2016-11-23 08:57] VITALS: BP 131/79; PULSE 96; RESP 24; O2SAT 92
--- NOTE | 2016-11-23 11:52 | PCM.PNMED ---
Subjective Date of Service Nov 23, 2016 Subjective No overnight events. Tx to MOC pending SNF placement. Exam Vital Signs Vital Sign - Last Date Time Temp Pulse Resp B/P Pulse Ox O2 Delivery O2 Flow Rate FiO2 11/23/16 08:57 36.6 96 24 131/79 92 Room Air 11/22/16 00:22 21 11/20/16 19:58 2.00 Intake and Output 11/22/16 11/22/16 11/23/16 Cumulative From/Thru 15:00 23:00 07:00 11/09/16 12:55 - 11/23/16 06:34 Intake Total 540 ml 878 ml 95016 ml Output Total 843 ml 27855 ml Balance -303 ml 878 ml 4807 ml Intake Oral 1160 ml IV Total 97835 ml Tube Feeding 878 ml 3261 ml Tube Irrigant 540 ml 1318 ml Output Urine Total 3 ml 42995 ml Stool Total 150 ml Gastric Drainage Total 840 ml 840 ml # Voids 1 30 # Bowel Movements 13 Exam General: AAOX3, not in acute distress, cooperative and pleasant. Slurred speech. HEENT: head normocephalic , PERRLA, EOMI, no scleral icterus, noninjected conjunctiva Neck: neck supple, non-tender, no lymphadenopathy, trachea midline, no JVD CV: regular rate and rhythm, s1 and s2 heard, radial pulses equal bilaterally, no rubs murmurs or gallops, no edema Lungs: diminished lung sounds bilaterally, mild increased work of breathing Abdomen: normoactive bowel sounds on 4Q, soft, non-distended, non-tender to palpation, no organomegally, PEG tube in place Skin: warm and dry Neuro: positive for slight facial droop, decreased muscle strength and ROM of left UE and LE, no sensation of left lower extremity Psych: Normal mood and affect IVs and Medications Medications Reviewed: Medications were reviewed in detail Lab and Diagnostics Result Diagram: 11/22/16 0400 11/22/16 0400 X-Rays, CTs and MRIs 11/09/16 MRI BRAIN WITH AND WITHOUT CONTRAST Brain: Scant [id number] midline shift. No intracranial bleeds or masses. No abnormal intracranial enhancement. The brainstem appears normal. Diffusion- weighted images demonstrate definite acute ischemic insults involving the right middle cerebral artery vascular distribution and extending into the basal ganglia on the right, with largest measurements of the area of subacute stroke currently measuring up to 7.2 cm AP and 3.8 cm transverse with a craniocaudad extent of approximately 3.9 cm. Subtle flow abnormalities are present on T2 and postcontrast T1 imaging in the area of thrombus present at the junction of the M1 and M2 segments right middle cerebral artery. Several additional punctate foci of infarction are present involving the anterior tip of the right temporal lobe and also the temporal occipital junction on the right. No chronic ischemic insults. Normal intravascular flow voids are present. IMPRESSION: Moderately large right middle cerebral artery vascular distribution with early mild to moderate mass effect, causing only slight right- to-left deviation of the midline structures, without associated hemorrhage. As discussed above and previously during CT angiographic report there is a thrombus that currently is likely partially obstructing the junction of the right middle cerebral artery M1-M2 junction. A portion of this thrombus is involving the lenticulostriate origins on the right is the presumed explanation for the basal ganglia contiguous infarction in that area and embolic etiology is the likely cause given the presence of several additional punctate foci of subacute ischemic injury involving the anterior and posterior margins of the right temporal lobe Chest Xray Interpretation: IMPRESSION: 1. Focal opacity in the periphery of the left midlung suspicious for pulmonary contusion. 2. Left seventh and eighth rib fractures. Dictated by: Cindi Red MD, PhD on 11/09/2016 at 13:28 Approved by: Cindi Red MD, PhD on 11/09/2016 at 13:30 View: Portable, 1 view Interpretation / Wet Read by: Interpret - Radiologist CT ANGIO HEAD AND NECK: IMPRESSION: 1. Subtle loss of morrow-white matter change involving the right basal ganglia suspicious for acute infarct. 2. No intracranial hemorrhage. 3. Absence of flow in the distal M1 segment and the proximal M2 segments of the right middle cerebral artery compatible presence of thrombus. 4. 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 5. High-grade, proximally 70-80% stenosis of the origin the left internal carotid artery. 6. Moderate stenosis of the origins of the vertebral arteries. 7. Image quality severely degraded by patient motion artifact. 8. Findings telephoned to Dr. Suleman Pedroza on 11/09/2016 at 1557 hrs. 12-lead ECG ECG Interpretation: sinus rate 70 non specific intraventricular conduction delay poor baseline quality multiple PVC's no obvious ST elevation no prior for comparison Time: 12:55 Interpreted by: ED physician Cardiac Echo Impressions Interpretation Summary This study quality was technically difficult with the patient being confused, unable to follow commands, and grabbing the scanning probe throughout exam. The left ventricle is not well visualized but grossly appears normal in size and left ventricular systolic function is probably normal with the ejection fraction grossly estimated to be 60-65% without obvious focal wall motion abnormalities but poor endocardial definition reduces the sensitivity for the detection of such. There is probable borderline concentric left ventricular hypertrophy. The right ventricle is not well visualized but grossly appears normal in size with probable normal systolic function. Pulmonary artery pressures cannot be estimated because of the lack of a measurable TR jet velocity but the IVC suggests a right atrial pressure of 8 mm Hg. The atria are not well visualized but grossly appear normal in size. The interatrial septum grossly appears intact with no evidence for an atrial septal defect and the injection of contrast shows no obvious interatrial shunt but poor image quality significantly reduces the sensitivity for the detection of such. Clinical correlation is recommended. There is no obvious significant valvular heart disease. Additional Diagnostics DateTimeAnalyzed 04:42:00 -_ pH ____7.396 - 7.350 7.450 pCO2 ___60.1__ -mmHg 35.0 45.0 pO2 ___72.5__ -mmHg 80.0 100 HCO3- ___36.1__ -mmol/L 22.0 26.0 ABE ____9.1__ -mmol/L -2.0 2.0 tHb ___15.4__ -g/dL 12.0 18.0 O2Hb ___91.9__ -% COHb ____1.1__ -% 1.5 MetHb ____0.7__ -% 0.4 1.5 sO2 ___93.7__ -% 95.0 FIO2 ___30.0__ -% Drawn By AF - Date/Time Notified____ 04:49:00 -_ Spontaneous_RR ___26.0__ -b/min Oxygen Device 1 ____BIPAP - Notified By AF - Notified Whom Raphael Rick RN -___ B 760 -mmHg tO2 ___19.9__ -Vol% Noah test _Positive - Assessment & Plan Patient is a 76 year old male with a history of CAD and DM who presents to the ED via EMS complaining of L sided paralysis upon waking this morning with CTA- finding of Acute infarct Right Basal Ganglia right middle cerebral artery compatible presence of thrombus. Will be discharged to SNF for PT. 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 MRI Brain- shows early mild to moderate mass effect. Per MRI/CTA- Thrombus that likely partially obstructing the junction of the right MCA at M1-M2 junction. Presented outside of tPA window. ED called [facility], not a candidate for clot retrieval. Mention of Afib in prior notes but no Afib confirmed. no prior history of Afib. Patient's telemetry discontinued on 11/14 . unknown if he has been in Afib or SR per software validation technician .initial EKG SR Allowed permissive HTN first 48 hrs, 11/10-Echo- EF 60-65%, atria are not well visualized but grossly appear normal in size. - Lipid Panel- uremarkable. - Consulted Neuro- Dr. Chand. Her initial Recs- med management w/ dual anti- platelet therapy. ASA/Plavix for 90 days. High dose Atorvastatin. 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 - PT recs Inpt rehab. - Can follow up with Dr. Chand in 2-3 weeks. -- PEG tube placed on 11/18 after he was off of Plavix for 5 days for the procedure. Patient will need to be at goal rate with tube feeds for 24 hours prior to discharge. -- 11/18 contacted [facility] in the am for a possible transfer for carotid endarterectomy, talked to the vascular surgery. They do not recommend endarterectomy with patient's modified tex functional score of 4-5. - Plan to discharge to SNF on 11/24 at [facility] inpatient rehab # Mild to Moderate mass effect /cerebral edema due to R MCA Infarct- acute, active. Pt is Hemodynamically stable. Neuro exam unchanged since admit. - Initially frequent q4h Neuro checks. Was upgraded to PCC, then downgraded to MOC 11/22. # B/L Carotid Artery Stenosis- poa, active. Per CT- High-grade, 90% to near- complete occlusion of the origin of the right ICA. High-grade, proximally 70-80 % stenosis of the origin the L ICA. - 11/11- spoke with [facility] Surgeon. They would want to wait 2-3 weeks until CVA stable before performing Carotid Endarterectomy. Instructed to schedule a follow up at [facility] for initial evaluation or can see another office if more convenient. # Acute on chronic hypoxic and hypercapnic respiratory failure , chronic present on admission, stable. -Multifactorial ,YOSELYN ,atelectasis, central due to acute stroke -- ABG with hypercapnea and hypoxia . Pulm consulted and tried CPAP o/n ,they transferred patient to 2nd floor for BIPAP trial and subsequent Triology prescription after workup. -With smoking history would continue duonebs qid for now. Eventual outpt PFT's - Pt was weaned off oxygen in daytime. Should follow up with Pulmonary after discharge. May need Trilogy Prescription. # DM-chronic - SSI, fingersticks. - Held hm Lantus 40u given low blood sugars. Patient has not been needing correction as he is also not eating much.only requiring 20 U HS currently.may need to discharge a lower dose of insulin upon discharge -Hold Metformin. - Hba1c of 6.7 # Chronic hypertension, active -- Restart patient's metoprolol on 11/13, increased to 125 mg PO BID on 11/17 -- Restart lisinopril home med full dose 11/14 -- Added amlodipine 5 mg on 11/16, Increased to 7.5 mg On 11/18 as his BP are still quite elevated. -- Aldactone 25 mg added 11/18 -- continue to monitor #Dysuria, acute -Patient complains of burning and pain with urination after pruitt catheter was removed -Ordered a UA. UA shows negative nitrites, trace LE, few bacteria and few epithelial cells. There is not strong evidence for UTI. We will not start with antibiotics and await cultures -Urine Culture- mixed nely. -Ordered pyridium # Allergic Conjunctivitis acute improved -- Artifical tears ordred -- No pataday or azalastine on formulary. Visine . Eyedrops are ordered. # hx of Ground Level Fall, acute, active. Occurred 2 months ago per pt. sustained Left seventh and eighth rib fractures per CXR. Left Pulmonary Contusion. - Pain well controlled. # CAD s/p CABG-chronic ASA changed to Plavix. # Morbid obesity, chronic ongoing -- Patient is presenting with a challenge to nursing due to large body habitus Code-Full Dispo: Inpt rehab at [facility] per PT/UR/SW likely on Friday 11/24. GI Prophylaxis: Proton Pump Inhibitor VTE Prophylaxis: Sub-Q Heparin (Unfractionated) VTE Mechanical Devices: Intermittant Pneumatic CD Resuscitation Status: CPR: Attempt Resuscitation Sergei Davidson MD Nov 23, 2016 11:52
--- NOTE | 2016-11-23 12:12 | NUR ---
Bereavement Patient's this morning at their home under hospice care. Family member at bedside for emotional support. Patient have friends and family present to offer support. We will continue to monitor at this time.
[2016-11-23 13:43] VITALS: PULSE 84; RESP 20; O2SAT 93
[2016-11-23] MEDS ORDERED: .Epic Conversion Completed XX PRN (15:35)
--- NOTE | 2016-11-23 16:47 | NUR ---
Social Work Note: Continued Discharge Planning/Readiness for Discharge Data& Assessment: DAIRY SCIENTIST spoke with Jerry from [facility] who requested updated clinicals in anticipation of his discharge tomorrow Friday11/24/2016. Clinicals have been faxed. DAIRY SCIENTIST to follow up with [facility] tomorrow regarding pt probable discharge and acceptance to their facility. DAIRY SCIENTIST to continue to follow. Plan: Anticipated discharge to [facility] tomorrow 11/24/2016 via private pay wheelchair van. DAIRY SCIENTIST to follow up with [facility] tomorrow regarding pt probable discharge and acceptance to their facility. LISA Ying
[2016-11-23] MEDS ORDERED: Phenazopyridine 97.5 mg Tablet PO PRN (17:05)
[2016-11-23 18:22] VITALS: BP 159/89; PULSE 68; RESP 20; O2SAT 91
[2016-11-23 19:38] VITALS: PULSE 88; RESP 20; O2SAT 91
[2016-11-23 20:30] VITALS: BP 148/82; PULSE 61; RESP 18; O2SAT 92
[2016-11-23] MEDS: Insulin GLARgine 100 Unit/mL Syringe SUBQ SCH (21:01)
== END 2016-11-24 01:35 | disposition admitted as inpatient to this hospital (09) | DRG 64 ==
LOC: SED 12:51 → MPC 17:10 → PCC 11-19 11:22 → MOC 11-22 16:28
PROVIDERS: ADMIT Internal Medicine; ATTEND Internal Medicine
DX: I63.311 Cerebral infarction due to thrombosis of right middle cerebral artery (principal); G93.6 Cerebral edema; I50.33 Acute on chronic diastolic (congestive) heart failure; G81.94 Hemiplegia, unspecified affecting left nondominant side; S27.321A Contusion of lung, unilateral, initial encounter; S22.42XA Multiple fractures of ribs, left side, initial encounter for closed fracture; R29.810 Facial weakness; R47.02 Dysphasia; I65.23 Occlusion and stenosis of bilateral carotid arteries; W06.XXXA Fall from bed, initial encounter